=== PATIENT | female | born 1985 | race Caucasian/White ===

== ENCOUNTER 2019-12-22 08:10 | Outpatient (REF) | payer OTHER, SELFPAY ==
[2019-12-22 11:01] LABS: Creatinine Urine 113.02 mg/dL; Microalbumin Urine < 5.0 mg/L
[2019-12-22 11:07] LABS: Alanine Aminotransferase 15 U/L (0-31); Albumin Level 4.4 g/dL (3.5-5.0); Alkaline Phosphatase 76 U/L (39-117); Anion Gap 12 (12-20); Aspartate Amino Transferase 23 U/L (5-31); Bilirubin Total 0.8 mg/dL (0.0-1.0); Blood Urea Nitrogen 16 mg/dL (9-16); Calcium 9.1 mg/dL (8.4-10.2); Carbon Dioxide 27 mmol/L (22-29); Chloride 101 mmol/L (96-108); Cholesterol 165 mg/dL; Estimated Glomerular Filt Rate > 60; Glucose Fasting 234 mg/dL (60-99); HDL Cholesterol 72 mg/dL; Potassium 5.1 mmol/l (3.3-5.1); Sodium 135 mmol/L (135-145); Total Protein 6.8 g/dL (6.5-8.0)
[2019-12-22 11:14] LABS: Estimated Average Glucose 120 mg/dL; Hemoglobin A1c % 5.8 %
[2019-12-22 11:15] LABS: LDL Cholesterol Calculated 87 mg/dl; Triglycerides 33 mg/dL
[2019-12-22 11:27] LABS: Vitamin D 25-OH Total 74.3 ng/mL (>30)
== END 2019-12-22 08:11 | disposition home or self-care (01) ==
LOC: HO.WFDLDS 08:10
PROVIDERS: PCP Nurse Practitioner Family; Visit Provider Nurse Practitioner Family
DX: E55.9 Vitamin D deficiency, unspecified (principal); E03.9 Hypothyroidism, unspecified; E10.9 Type 1 diabetes mellitus without complications
CPT/HCPCS: 80053; 80061; 82043; 82306; 83036; 84443

== ENCOUNTER 2020-06-14 08:24 | Outpatient (REF) | payer OTHER, SELFPAY ==
[2020-06-14 11:05] LABS: Alanine Aminotransferase 17 U/L (0-31); Albumin Level 4.2 g/dL (3.5-5.0); Alkaline Phosphatase 62 U/L (39-117); Anion Gap 14 (12-20); Aspartate Amino Transferase 23 U/L (5-31); Bilirubin Total 0.7 mg/dL (0.0-1.0); Blood Urea Nitrogen 13 mg/dL (9-16); Calcium 8.7 mg/dL (8.4-10.2); Carbon Dioxide 25 mmol/L (22-29); Chloride 103 mmol/L (96-108); Cholesterol 143 mg/dL; Estimated Glomerular Filt Rate > 60; Glucose Fasting 152 mg/dL (60-99); HDL Cholesterol 73 mg/dL; LDL Cholesterol Calculated 62 mg/dl; Sodium 137 mmol/L (135-145); Total Protein 6.5 g/dL (6.5-8.0); Triglycerides 44 mg/dL
[2020-06-14 11:16] LABS: Estimated Average Glucose 128 mg/dL; Hemoglobin A1c % 6.1 %
[2020-06-14 11:25] LABS: Creatinine Urine 41.88 mg/dL; Microalbumin Urine < 5.0 mg/L
[2020-06-14 11:30] LABS: Free T4 (Free Thyroxine) 0.96 ng/dL (0.71-1.85); TSH reflex Free T4 1.86 uIU/mL (0.32-4.0); Vitamin D 25-OH Total 56.2 ng/mL (>30)
== END 2020-06-14 08:25 | disposition home or self-care (01) ==
LOC: HO.WFDLDS 08:24
PROVIDERS: Visit Provider Nurse Practitioner Family
DX: E03.9 Hypothyroidism, unspecified (principal); E10.9 Type 1 diabetes mellitus without complications; E55.9 Vitamin D deficiency, unspecified
CPT/HCPCS: 36415; 80053; 80061; 82043; 82306; 83036; 84439; 84443

== ENCOUNTER 2020-07-02 14:05 | Emergency (ER) | payer OTHER, SELFPAY ==
--- NOTE | ~2020-07-02 | XR_ITS ---
EXAMINATION: XR FOOT, RIGHT CLINICAL INFORMATION: Injury to right great toe. COMPARISON: None TECHNIQUE: AP, lateral, and oblique views of the right foot. FINDINGS: Soft tissue injury over the distal phalanx of the great toe is evident. No fracture or other bony abnormality is seen. No radiopaque foreign body is visualized. XR/XR foot RT min 3V IMPRESSION: Soft tissue injury. No fracture.
[2020-07-02 14:12] VITALS: BP 142/79; PULSE 77; RESP 16; TEMP 36.6; O2SAT 99; BMI 25.8
[2020-07-02] MEDS: Diphth,Pertus(ACell),Tet Adult 0.5 ML SYRINGE IM (14:47)
[2020-07-02] MEDS: Ibuprofen 800 MG TABLET PO (14:47)
--- NOTE | 2020-07-02 15:25 | ED_ITS ---
HPI - Extremity Injury (Lower) General Chief Complaint: Extremity Injury, Lower Stated Complaint: R FOOT INJ DROP 25LB Time Seen by Provider: 07/02/20 14:37 Source: patient Mode of arrival: ambulatory Limitations: no limitations History of Present Illness HPI Narrative: Patient presents to the ED for right big toe pain. Patient states she was taking out garbage and heavy box with metal fell onto her foot. Patient came to the ED to be evaluated. Patient states she had tetanus shot more than 5 years ago. Related Data Previous Rx's Medication Instructions Recorded dextroamphetamine-amphetamine 5 mg 5 mg PO BID 30 Days #60 tab 05/31/20 tablet bupropion HCl 150 mg 24 hr tablet, 150 mg PO QAM #90 tab 06/06/20 extended release cephalexin 500 mg PO QID #28 cap 07/02/20 naproxen 500 mg PO BID PRN #20 tab 07/02/20 Allergies Allergy/AdvReac Type Severity Reaction Status Date / Time acetaminophen [Vicodin] Allergy Unknown hives Verified 02/12/19 00:00 hydrocodone [HYDROCODONE] Allergy Unknown HIVES Unverified 12/02/19 15:32 latex [LATEX] Allergy Unknown HIVES Unverified 12/02/19 15:32 lisinopril [LISINOPRIL] Allergy Unknown ANGIOEDEMA Unverified 12/02/19 15:32 brandon [BRANDON] Allergy Unknown UNKNOWN Unverified 12/02/19 15:32 shrimp [SHRIMP] Allergy Unknown HIVES Unverified 12/02/19 15:32 Hydrocodone-Acetaminophen Allergy Unknown Uncoded 05/30/16 00:00 latex Allergy Unknown hives Uncoded 02/12/19 00:00 OYSTERS Allergy Unknown HIVES Uncoded 12/02/19 15:32 Review of Systems Review of Systems: Yes all other systems are reviewed and are negative Constitutional: Constitutional: Reports as per HPI and Reports no additional constitutional complaints Eyes: Eyes: Reports as per HPI and Reports no additional eye complaints ENT: Reports system reviewed and no additional complaints, except as documented and Reports as per HPI Cardiovascular: Cardiovascular: Reports as per HPI and Reports no additional cardiovascular complaints Respiratory: Respiratory: Reports as per HPI and Reports no additional respiratory complaints Gastrointestinal: Gastrointestinal: Reports as per HPI and Reports no additional gastrointestinal complaints Genitourinary: Genitourinary: Reports no additional female genitourinary complaints and Reports as per HPI Musculoskeletal: Musculoskeletal: Reports no additional musculoskeletal c omplaints, Reports as per HPI and Reports arthralgias Comments: Right big toe pain Neurologic: Reports system reviewed and no additional complaints, except as documented Psychiatric: Psychiatric: Reports no additional psychiatric complaints and Reports as per HPI [facility] Past Medical History Medical History (Updated 07/02/20 @ 15:54 by ISI Earl) Diabetes type 1, controlled Hypothyroid Vitamin D deficiency Social History Social History Advance Directives: Yes Advance Directives on File: Yes Advance Directives Date on File: 12/22/19 Physical Exam Vital Signs: Vital Signs: Last Vital Signs Temp 97.8 F 07/02/20 14:12 Pulse 77 07/02/20 14:12 Resp 18 07/02/20 16:03 BP 142/79 H 07/02/20 14:12 Pulse Ox 99 07/02/20 14:12 Body Mass Index 25.8 Const: General: cooperative, healthy appearing, comfortable, no acute distress, well developed, alert and awake Orientation/consciousness: patient oriented x3 HENMT: Head: Yes normal to inspection, Yes No palpable skull fracture present, Yes normocephalic, Yes atraumatic, No abrasion, No Norris's sign, No contusion, No cranial bruits, No hematoma, No laceration, No occipital foramen tenderness, No palpable skull fracture, No raccoon eyes, No scalp lesion, No scalp tenderness, No Temporal artery tenderness present and No periorbital ecchymosis Eyes: General: appearance normal, both eyes and all related structures Neck: Neck: Yes normal visual inspection, Yes full ROM, Yes no lymphadenopathy, Yes no meningeal signs, Yes trachea midline, Yes supple and No tender Chest: Chest palpation & inspection: normal inspection of the chest and normal palpation of entire chest wall Resp: Effort & Inspection: normal respiratory effort and able to speak in complete sentences Auscultation: clear to auscultation bilaterally Cardio: Jugular venous distension: no JVD Heart sounds: S1 normal heart sound present and S2 normal heart sound present GI: Inspection: Yes normal to inspection and No abdominal wall ecchymosis Palpation (GI): Soft to palpation, not firm, nontender, no guarding and not rigid : General: No CVA tenderness and Yes no CVA tenderness Back/Spine/Pelvis: Back: no CVA tenderness, No CVA tenderness and No back tenderness Skin: General skin exam: no rashes or lesions noted and elasticity normal Neuro: General: patient oriented x3, gait normal, no meningeal signs and CN's II-XI intact bilaterally Cranial nerves: Yes CN's II-XII intact bilaterally Extrem: Other: Right lower extremity: Motor/neuro/vascular exam intact Ankle/foot/toe images: 1. abrasion/skin tear like. no laceration repair indicated. Patient nails are colored with panamanian so unable to diagnose for subungal hematoma, but no blood oozing from nail to indicate nailbed injury. Psych: Appearance: grossly normal, well kempt and not disheveled Course Course Course Narrative: Patient will be sent for x-ray to rule out fracture. No laceration repair indicated. Patient given tetanus. Reevaluation(s) Reevaluation #1: Patient does not need laceration repair. wound cleaned and soaked with sterile saline and betadine. patient informed she is type 1 diabetic. due to this patient will be discharged with cephaelxin. MDM - Extremity Injury (Lower) MDM Narrative Medical decision making narrative: Skin tear Discharge Plan Discharge Clinical Impression: Contusion, Skin tear Patient Disposition: Home, Self-Care Instructions: Contusion in Adults (ED), Skin Tear (ED) Additional Instructions: Return to the ED immediately for swelling of foot, redness, pus discharge, foul odor, fever, chills, or any other concerning symptoms. Prescriptions: New cephalexin 500 mg capsule 500 mg PO QID Qty: 28 RF: 0 naproxen 500 mg tablet 500 mg PO BID PRN (Reason: pain) Qty: 20 RF: 0 No Action dextroamphetamine-amphetamine [Adderall] 5 mg tablet 5 mg PO BID 30 Days Qty: 60 RF: 0 bupropion HCl 150 mg tablet extended release 24 hr 150 mg PO QAM Qty: 90 RF: 1 Referrals: Rich Rosa, COLLECTION CLERK-BC [Primary Care Provider] - 2 days (Contusion. Skin tear.) Stand Alone Forms: Work/School Release Interventions: ED Discharge Assessment Last Done: 07/02/20 16:01 Discharge Date/Time: 07/02/20 16:03 Print Language: Scottish
[2020-07-02 16:03] VITALS: RESP 18
== END 2020-07-02 16:03 | disposition home or self-care (01) ==
PROVIDERS: Emergency Provider Emergency Medicine; PCP Nurse Practitioner Family
DX: S90.111A Contusion of right great toe without damage to nail, initial encounter (principal); S90.411A Abrasion, right great toe, initial encounter; W20.8XXA Other cause of strike by thrown, projected or falling object, initial encounter; E10.44 Type 1 diabetes mellitus with diabetic amyotrophy; Y93.89 Activity, other specified; Y92.015 Private garage of single-family (private) house as the place of occurrence of the external cause; Y99.9 Unspecified external cause status
CPT/HCPCS: 73630; 90471; 90715; 99283; 99284

== ENCOUNTER 2020-07-07 10:02 | Outpatient (RCR) | payer OTHER, SELFPAY | END 2020-07-20 11:34 | disposition home or self-care (01) | LOC: HO.WCC 10:02 | PROVIDERS: Visit Provider Physician Assistant | DX: S91.111D Laceration without foreign body of right great toe without damage to nail, subsequent encounter (principal); E10.9 Type 1 diabetes mellitus without complications; Z79.4 Long term (current) use of insulin | CPT/HCPCS: 99212; 99213 ==

== ENCOUNTER → 2021-11-15 10:51 | Outpatient (BNVA) | payer SELFPAY | PROVIDERS: PCP Nurse Practitioner Family; Visit Provider Physician Assistant Medical | DX: Z02.1 Encounter for pre-employment examination (principal) ==

== ENCOUNTER 2023-05-02 07:46 | Outpatient (REF) | payer OTHER, SELFPAY ==
[2023-05-02 11:36] LABS: Estimated Average Glucose 117 mg/dL; Hemoglobin A1c % 5.7 % (<6.0)
[2023-05-02 12:15] LABS: T4 Thyroxine 6.7 ug/dL (4.5-12.0); TSH reflex Free T4 2.18 uIU/mL (0.32-4.0)
[2023-05-02 12:17] LABS: Anion Gap 13 (12-20)
[2023-05-02 12:22] LABS: Alanine Aminotransferase 12 U/L (0-31); Albumin Level 4.4 g/dL (3.5-5.0); Alkaline Phosphatase 58 U/L (39-117); Aspartate Amino Transferase 23 U/L (5-31); Bilirubin Total 0.5 mg/dL (0.0-1.0); Blood Urea Nitrogen 16 mg/dL (9-16); Calcium 9.8 mg/dL (8.4-10.2); Carbon Dioxide 29 mmol/L (22-29); Chloride 104 mmol/L (96-108); Cholesterol 154 mg/dL (<200); Estimated Glomerular Filt Rate > 60; Glucose Fasting 105 mg/dL (60-99); HDL Cholesterol 71 mg/dL (>40); LDL Cholesterol Calculated 75 mg/dL (<100); Potassium 4.5 mmol/L (3.3-5.1); Sodium 141 mmol/L (135-145); Triglycerides 42 mg/dL (<150)
[2023-05-02 12:26] LABS: Creatinine Urine 101.12 mg/dL; Microalbum/Creatinine Ratio Ur 4.9 ug/mg cr (<30)
== END 2023-05-02 07:47 | disposition home or self-care (01) ==
LOC: HO.WFDLDS 07:46
PROVIDERS: Nurse Practitioner Family; Visit Provider Internal Medicine Endocrinology, Diabetes & Metabolism
DX: E03.9 Hypothyroidism, unspecified (principal); E10.9 Type 1 diabetes mellitus without complications
CPT/HCPCS: 36415; 80053; 80061; 82043; 82570; 83036; 84436; 84443

== ENCOUNTER 2023-11-21 08:28 | Outpatient (REF) | payer OTHER, SELFPAY ==
[2023-11-21 12:05] LABS: Alanine Aminotransferase 14 U/L (0-31); Albumin Level 4.4 g/dL (3.5-5.0); Alkaline Phosphatase 54 U/L (39-117); Anion Gap 11 (12-20); Aspartate Amino Transferase 20 U/L (5-31); Bilirubin Total 0.6 mg/dL (0.0-1.0); Blood Urea Nitrogen 16 mg/dL (9-16); Calcium 9.8 mg/dL (8.4-10.2); Carbon Dioxide 29 mmol/L (22-29); Chloride 102 mmol/L (96-108); Cholesterol 163 mg/dL (<200); Estimated Glomerular Filt Rate 59; Glucose Random 160 mg/dL (60-115); HDL Cholesterol 72 mg/dL (>40); LDL Cholesterol Calculated 81 mg/dL (<100); Potassium 4.3 mmol/L (3.3-5.1); Sodium 138 mmol/L (135-145); Total Protein 6.9 g/dL (6.5-8.0); Triglycerides 50 mg/dL (<150)
[2023-11-21 12:17] LABS: Creatinine Urine 20.55 mg/dL; Microalbumin Urine < 5.0 mg/L
[2023-11-21 12:23] LABS: Thyroid Stimulating Hormone 2.24 uIU/mL (0.32-4.0)
[2023-11-21 12:37] LABS: Estimated Average Glucose 134 mg/dL; Hemoglobin A1c % 6.3 % (<6.0)
== END 2023-11-21 08:29 | disposition home or self-care (01) ==
LOC: HO.WFDLDS 08:28
PROVIDERS: Visit Provider Internal Medicine Endocrinology, Diabetes & Metabolism
DX: E03.9 Hypothyroidism, unspecified (principal); E10.9 Type 1 diabetes mellitus without complications
CPT/HCPCS: 36415; 80053; 80061; 82043; 82570; 83036; 84439; 84443

== ENCOUNTER 2024-02-05 08:59 | Outpatient (AMB) | payer OTHER, SELFPAY ==
--- NOTE | 2024-02-05 07:13 | A.OFFVIS_ITS ---
Intake Visit Reasons: per marcela Allergies acetaminophen [Vicodin] Allergy (Unknown, Verified 07/23/21 12:01) hives hydrocodone [HYDROCODONE] Allergy (Unknown, Unverified 07/23/21 12:) HIVES latex [LATEX] Allergy (Unknown, Unverified 07/23/21 12:) HIVES lisinopril [LISINOPRIL] Allergy (Unknown, Unverified 07/23/21 12:) ANGIOEDEMA brandon [BRANDON] Allergy (Unknown, Unverified 07/23/21 12:) UNKNOWN shrimp [SHRIMP] Allergy (Unknown, Unverified 07/23/21 12:) HIVES Hydrocodone-Acetaminophen Allergy (Mild, Uncoded 07/23/21 12:) Unknown latex Allergy (Unknown, Uncoded 07/23/21:) hives OYSTERS Allergy (Unknown, Uncoded 07/23/21 12:) HIVES HPI HPI per marcela: Details: History of Present Illness The patient is a 38-year-old female presenting with anxiety and depression. She reports an escalation of anxiety symptoms over the past few weeks, which necessitated increasing her Wellbutrin (bupropion) intake back to 450 mg daily from occasionally reducing it to 300 mg when she feels better. The increased dose has been effective in managing her anxiety. During a period of increased anxiety, the patient experienced sleep disturbances, which she managed with Ativan (lorazepam). Currently, with Wellbutrin at 450 mg, her anxiety is well- controlled, and her sleep quality has improved. The patient continues to participate in weekly counseling sessions, which she finds beneficial. She is committed to her mental health management and reports no occurrences of chest pain or shortness of breath. The patient also engaged in a discussion regarding her receipt of a flu shot on January 02, 2024, and indicates that daily exercise contributes positively to her anxiety management. Review of Systems - Psychiatric: Reports controlled anxiety with Wellbutrin 450 mg dose, sleeping well, engaging in weekly counseling. - Cardiovascular: Denies chest pain. - Respiratory: Denies shortness of breath. Physical Exam General: No apparent distress, well nourished Head: Normocephalic Eyes: non-icteric, pupils appear grossly symmetric Mouth: moist mucous membranes, airway patent Neck: Trachea midline Lungs: no respiratory distress, speaks in full sentences Neurologic: alert and cooperative, no dysarthria, face appears symmetric Psychiatric: affect normal, thought pattern linear Skin: no facial diaphoresis, no gross jaundice, no visible rash on exposed skin Note: This physical exam was conducted in conjunction with the patient via our Telehealth platform. The patient reports feeling great with no chest pain or shortness of breath. They are exercising daily, which helps with anxiety, and received a flu shot on January 02, 2024. Plan - Continue current management with Wellbutrin bupropion) at 450 mg daily as it is effective in controlling the patient's anxiety and depression symptoms. - No changes to current medication regimen are indicated as the patient denies experiencing adverse symptoms such as chest pain or shortness of breath.. Patient was informed and verbally consented to the use of an ambient scribe for clinic note documentation during this visit. Discussion Notes We discussed the current management plan for the patient's anxiety and depression. The patient confirmed the efficacy of Wellbutrin 450 mg, and no adverse side effects were reported. I explained the importance of maintaining the current dosage, given its effectiveness in controlling symptoms. We also discussed the benefits of ongoing counseling and exercise as integral parts of her management strategy. The patient was informed about the importance of monitoring any changes in symptoms, and she agreed to notify me if any arise. The patient consented to continue the current treatment plan, and future appointments will be scheduled as needed. Patient Instructions - Continue taking Wellbutrin (bupropion) at the current dose of 450 mg daily. - Engage in regular daily exercise as it assists in managing anxiety levels. - Observe for any new symptoms, and contact me if any issues arise, such as changes in mood, chest pain, or shortness of breath. [facility] Medical History Persistent thyroglossal duct cyst Hypothyroid Diabetes type 1, controlled Vitamin D deficiency Social History Advance Directives Date on File: 12/22/19 Assessment & Plan Assessment & Plan (1) Anxiety with depression: Code(s): F41.8 - Other specified anxiety disorders Category: Medical Plan . Coding Level of Care Code Tele Est Pt Level 3 (25756) Diagnoses Anxiety with depression F41.8
== END 2024-02-05 08:59 | disposition home or self-care (01) ==
LOC: HO.HMCC 08:59
PROVIDERS: PCP Nurse Practitioner Family; Visit Provider Nurse Practitioner Family
DX: F41.8 Other specified anxiety disorders (principal)

== ENCOUNTER → 2024-02-05 08:59 | Outpatient (BNVA) | payer OTHER, SELFPAY | PROVIDERS: PCP Nurse Practitioner Family; Visit Provider Nurse Practitioner Family | DX: F41.8 Other specified anxiety disorders (principal) ==

== ENCOUNTER 2024-04-01 14:35 | Outpatient (REF) | payer OTHER, SELFPAY | END 2024-04-01 14:36 | disposition home or self-care (01) | LOC: HO.SH 14:35 | PROVIDERS: Visit Provider Nurse Practitioner Family | DX: Z01.118 Encounter for examination of ears and hearing with other abnormal findings (principal); H90.3 Sensorineural hearing loss, bilateral | CPT/HCPCS: 92557; 92567 ==

== ENCOUNTER 2024-06-30 07:14 | Outpatient (REF) | payer OTHER, SELFPAY ==
--- OUTSIDE RECORDS SUMMARY | 2024-06-30 07:17 | XMS_ITS | Encounter Summary ---
Author Organization [facility] Address [address] [place] [address] Phone Care Team Providers Care Personal Coach Name Role Phone Maria G Garcia MD Primary Care Provider Encounter Details Date Type Department Care Team (Late st Contact Info) Description 10/31/2016 Conversion Encounter [facility] [place] [address] [place] [address] Social History Tobacco Use Types Packs/Day Years Used Date Smoking Tobacco: Never Assessed Comments Unknown Sex and Gender Information Value Date Recorded Sex Assigned at Not on file Legal Sex Female 4:16 PM EDT Gender Identity Not on file Sexual Orientation Not on file documented as of this encounter Plan of Treatment Not on file documented as of this encounter Visit Diagnoses Not on filedocumented in this encounter Care Teams Personal Coach Relationship Specialty Start Date End Date Maria G Garcia MD [address] [place] [address] PCP - General 10/25/16 06/27/22 documented as of this encounter
--- OUTSIDE RECORDS SUMMARY | 2024-06-30 07:17 | XMS_ITS | Clinical Summary ---
Author Organization [facility] Address [address] [place] [address] Phone Care Team Providers Care Lacquer Pin Press Operator Name Role Phone Unavailable Primary Care Provider Unavailabl e Immunizations Immunization Administration Dates Next Due DTP 12/01/1989, 7,11/15/1985,1985,02/24/1985 Hep B, ped/adol 07/18/1997,11/24/1996,09/09/1996 Hib (HbOC) 09/11/1987 Influenza, injectable, trivalent 02/01/2004 MMR 07/18/1997,09/14/1986 OPV 12/01/1989, 7,07/02/1985,1984 Td (adult) (Teniva), 5 Lf t etanus toxoid, PF, adsorbed 01/16/1999 Social History Tobacco Use Types Packs/Day Years Used Date Smoking Tobacco: Never Assessed Comments Unknown Sex and Gender Information Value Date Recorded Sex Assigned at Not on file Legal Sex Female 4:16 PM EDT Gender Identity Not on file Sexual Orientation Not on file Plan of Treatment Health Maintenance Due Date Last Done Comments Varicella Vaccines (1 of 2 - 13+ 2-dose series) 1997 DTaP,Tdap,and Td Vaccines (6 - Tdap) 01/17/1999 01/16/1999, 12/01/1989, 09/14/1986, Additional history exists Influenza Vaccines (#1) 2023 02/01/2004 COVID-19 Vaccine ( season) 2023 HIB Vaccines Completed 09/11/1987 IPV Vaccines Completed 12/01/1989, 07/0 03/1986, 07/02/1985, Additional history exists Hepatitis B Vaccines Completed 07/18/1997, 11/24/1996, 09/09/1996 MMR Vaccines Completed 07/18/1997, 09/14/1986 HPV Vaccines Aged Out No longer eligi ble based on patient's age to complete this topic Hepatitis A Vaccines Aged Out No long er eligible based on patient's age to complete this topic Men B Vaccine Aged Out No longer elig ible based on patient's age to complete this topic Meningococcal Vaccine Aged Out No wm ibrahima eligible based on patient's age to complete this topic Pneumococcal Vaccine Aged Out No long er eligible based on patient's age to complete this topic
[2024-06-30 11:23] LABS: MANUAL DIFF FLAG NO
[2024-06-30 11:30] LABS: Basophils Absolute Auto 0.1 X10*3/uL (0.0-0.2); Basophils Percent Auto 0.9 % (0-2); Eosinophils Absolute Auto 0.3 X10*3/uL (0.0-0.4); Eosinophils Percent Auto 4.7 % (0-4); Hemoglobin 14.8 g/dl (12.0-16.0); Imm Gran Abs Auto 0.02 X10*3/uL (0.00-0.03); Imm Gran Pct Auto 0.4 % (0.0-0.4); Lymphocytes Absolute Auto 1.9 X10*3/uL (1.2-4.9); Mean Corpuscular HGB Conc 33.6 g/dl (31.0-35.0); Mean Corpuscular Hemoglobin 29.5 pg (27.0-33.0); Mean Corpuscular Volume 87.8 fL (80.0-98.0); Mean Platelet Volume 10.3 fL (9.4-12.3); Monocytes Absolute Auto 0.5 X10*3/uL (0.1-1.2); Monocytes Percent Auto 9.4 % (2-11); Neutrophils Absolute Auto 2.6 x10*3/uL (2.0-8.3); Neutrophils Percent Auto 49.6 % (45-73); Platelet Count 226 X10*3/uL (160-400); Red Blood Count 5.01 X10*6/uL (4.20-5.50); Red Cell Distribution Width 12.7 % (11.0-16.0); White Blood Count 5.3 X10*3/uL (4.8-10.8)
[2024-06-30 11:38] LABS: Estimated Average Glucose 131 mg/dL; Hemoglobin A1C 165.5622 umol/L; Hemoglobin A1c % 6.2 % (<6.0); Total Hemoglobin (HGBA1C) 3753.2102 umol/L
[2024-06-30 12:02] LABS: Alanine Aminotransferase 22 U/L (0-31); Albumin Level 4.3 g/dL (3.5-5.0); Alkaline Phosphatase 53 U/L (39-117); Anion Gap 11 (12-20); Aspartate Amino Transferase 26 U/L (5-31); Bilirubin Total 0.5 mg/dL (0.0-1.0); Blood Urea Nitrogen 19 mg/dL (9-16); Calcium 9.8 mg/dL (8.4-10.2); Carbon Dioxide 28 mmol/L (22-29); Chloride 105 mmol/L (96-108); Cholesterol 144 mg/dL (<200); Estimated Glomerular Filt Rate > 60; Free T4 (Free Thyroxine) 1.12 ng/dL (0.71-1.85); Glucose Fasting 145 mg/dL (60-99); HDL Cholesterol 67 mg/dL (>40); LDL Cholesterol Calculated 66 mg/dL (<100); Potassium 4.2 mmol/L (3.3-5.1); Sodium 140 mmol/L (135-145); TSH reflex Free T4 3.15 uIU/mL (0.32-4.0); Total Protein 6.8 g/dL (6.5-8.0); Triglycerides 55 mg/dL (<150); Vitamin D 25-OH Total 125.2 ng/mL (>30)
[2024-06-30 12:11] LABS: Folate 13.8 ng/mL (> or = 4.0); Vitamin B12 1148 pg/mL (200-900)
[2024-06-30 12:33] LABS: Microalbumin Urine < 5.0 mg/L
== END 2024-06-30 07:15 | disposition home or self-care (01) ==
LOC: HO.WFDLDS 07:14
PROVIDERS: Visit Provider Nurse Practitioner Family
DX: E10.9 Type 1 diabetes mellitus without complications (principal); E55.9 Vitamin D deficiency, unspecified
CPT/HCPCS: 36415; 80053; 80061; 82043; 82306; 82570; 82607; 82746; 83036; 84439; 84443; 85025

== ENCOUNTER 2024-08-25 08:08 | Outpatient (AMB) | payer OTHER, SELFPAY ==
--- OUTSIDE RECORDS SUMMARY | 2024-08-25 08:13 | XMS_ITS | Data Portability ---
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 [email or web address] Not available 06/24/2022 17:37:42 11/07/2022 11/07/2022 T1DM on pump- Overall A1c has been indicative of outstanding control but has had frequent hypoglycemia. Has had very severe episodes requiring response from others. Lots of exercise impacts BG - helps but also has had problems with lows in past. 2017- Severe low on cruise and had seizure- required glucagon but developed aspiration pneumonia ( tried giving her liquid first). 07/2017: Upgrade to 670 but hasn't used sensor (doesn't like alarms and feels not accurate). Very frustrated but also scared about hypo-induced sz. 04/05: Less lows with extreme exercise- Cross-fit and HIIT. Competitive level. More highs during exercise but can go low many hours afterwards. 02/04: Problems with poor insurance- coverage for strips. Having frequent lows. Willing to consider CGM (maybe Eversense)? Also switch to tandem T-slim 04/08: Still using old pump w/o CGM. Keeping sugars high in order to avoid lows. 11/06: Discussed options with newer pumps/software. Her diet is more caloric as part of family tx for Marquise (disordered eating/restricti ve). DELLA'S- Hypothyroid on 75 mcg. 02/04: doing well. 2022: stable on 75 THYROGLOSSAL DUCT CYST (2017)- has not gone for surgery 02/04; Not bothering her. 04/08: Feels it increases intermittently (e.g., post-nasal drip) and also contributes to HERNANDEZ with exercise. 11/06: She reports less bothersome since bx. Still comes/goes but smaller. RUQ pain: 04/08: Ongoing MIGRAINES: 02/04- monthly and stable. 2022: No major change Other symptoms without clear etiology include: exercise-related bradycardia with syncope, RUQ pain (no GB pathology), 01/03: Ask that she bring meter to [facility] next time in area for download. 07/05: Uses multiple meters in different locations that can't be downloaded. 04/08: Ongoing. Enhanced Provider time spent performing enhanced activities which may include, but are not limited to: reviewing tests, obtaining and/or reviewing patient history; ordering medications, test or procedures; EMR documentation; communication with patient, family, caregiver(s), VNA; pre-visit prep time communication with specialists, ER staff. Time spent: 57 (minutes) 04/08: Allowing sugars to run higher than in past in order to avoid lows. No complications but concerned that if a1c increases, she may have problems in future. Ongoing discussion about getting new pump with CGM. Thyroid is stable. Knows about thyroglossal duct cyst. update where insurance will cover. 11/06: highs in afternoon- change CHO ratio. noon from 9.0 to 8.5. [email or web address] Not available 01/13/2023 19:07:20 05/15/2023 05/15/2023 T1DM on pump- Overall A1c has been indicative of outstanding control but has had frequent hypoglycemia. Has had very severe episodes requiring response from others. Lots of exercise impacts BG - helps but also has had problems with lows in past. 2018- Severe low on cruise and had seizure- required glucagon but developed aspiration pneumonia ( tried giving her liquid first). 07/2017: Upgrade to 670 but hasn't used sensor (doesn't like alarms and feels not accurate). Very frustrated but also scared about hypo-induced sz. 04/05: Less lows with extreme exercise- Cross-fit and HIIT. Competitive level. More highs during exercise but can go low many hours afterwards. 02/04: Problems with poor insurance- coverage for strips. Having frequent lows. Willing to consider CGM (maybe Eversense)? Also switch to tandem T-slim 04/08: Still using old pump w/o CGM. Keeping sugars high in order to avoid lows. 11/06: Discussed options with newer pumps/software. Her diet is more caloric as part of family tx for Marquise (disordered eating/restricti ve). DELLA'S- Hypothyroid on 75 mcg. 02/04: doing well. 2022: stable on 75 THYROGLOSSAL DUCT CYST (2017)- has not gone for surgery 02/04; Not bothering her. 04/08: Feels it increases intermittently (e.g., post-nasal drip) and also contributes to HERNANDEZ with exercise. 11/06: She reports less bothersome since bx. Still comes/goes but smaller. RUQ pain: 04/08: Ongoing MIGRAINES: 02/04- monthly and stable. 2022: No major change Other symptoms without clear etiology include: exercise-related bradycardia with syncope, RUQ pain (no GB pathology), 01/03: Ask that she bring meter to [facility] next time in area for download. 07/05: Uses multiple meters in different locations that can't be downloaded. 04/08: Ongoing. Enhanced Provider time spent performing enhanced activities which may include, but are not limited to: reviewing tests, obtaining and/or reviewing patient history; ordering medications, test or procedures; EMR documentation; communication with patient, family, caregiver(s), VNA; pre-visit prep time communication with specialists, ER staff. Time spent: 58 (minutes) 05/10 04/08: Allowing sugars to run higher than in past in order to avoid lows. No complications but concerned that if a1c increases, she may have problems in future. Ongoing discussion about getting new pump with CGM. Thyroid is stable. Knows about thyroglossal duct cyst. update where insurance will cover. 11/06: highs in afternoon- change CHO ratio. noon from 9.0 to 8.5. 05/10: additional time to discuss pump options. No changes. Find out about options for new tandem pump and exchange for next generation (MOBI). plan will likely be Tandem (some type) with dexcom G7. concern about hands- pain is significant but extent of Duputryens is fairly mild. she is nervous about microvascular complications of T1DM. Has responded to use of gloves and less gripping with Xfit. Discussed idea of either PT or hand surgery evaluation. Encourage PT. Has one in her office. [email or web address] Not available 06/20/2023 15:23:53 12/11/2023 12/11/2023 T1DM on pump- Overall A1c has been indicative of outstanding control but has had frequent hypoglycemia. Has had very severe episodes requiring response from others. Lots of exercise impacts BG - helps but also has had problems with lows in past. 2017- Severe low on cruise and had seizure- required glucagon but developed aspiration pneumonia ( tried giving her liquid first). 07/2017: Upgrade to 670 but hasn't used sensor (doesn't like alarms and feels not accurate). Very frustrated but also scared about hypo-induced sz. 04/05: Less lows with extreme exercise- Cross-fit and HIIT. Competitive level. More highs during exercise but can go low many hours afterwards. 02/04: Problems with poor insurance- coverage for strips. Having frequent lows. Willing to consider CGM (maybe Eversense)? Also switch to tandem T-slim 04/08: Still using old pump w/o CGM. Keeping sugars high in order to avoid lows. 11/06: Discussed options with newer pumps/software. Her diet is more caloric as part of family tx for Marquise (disordered eating/restricti ve). DELLA'S- Hypothyroid on 75 mcg. 02/04: doing well. 2022: stable on 75 THYROGLOSSAL DUCT CYST (2017)- has not gone for surgery 02/04; Not bothering her. 04/08: Feels it increases intermittently (e.g., post-nasal drip) and also contributes to HERNANDEZ with exercise. 11/06: She reports less bothersome since bx. Still comes/goes but smaller. RUQ pain: 04/08: Ongoing MIGRAINES: 02/04- monthly and stable. 2022: No major change Other symptoms without clear etiology include: exercise-related bradycardia with syncope, RUQ pain (no GB pathology), 01/03: Ask that she bring meter to [facility] next time in area for download. 07/05: Uses multiple meters in different locations that can't be downloaded. 04/08: Ongoing. CGM REPORT: 12/08: see download for details. TIR= 82% HIGH= 17% (2% over 180) LOWS= 1.3% (mostly post highs) Was having highs after bkfst (juicing) and better now about dosing for that. Some highs around dinner. Exercise times varies. basal/bolus= 54/46. (NB: average exercise is 0) *Discussed adjusting for juicing but she has made progress in that area. Enhanced Provider time spent performing enhanced activities which may include, but are not limited to: reviewing tests, obtaining and/or reviewing patient history; ordering medications, test or procedures; EMR documentation; communication with patient, family, caregiver(s), VNA; pre-visit prep time communication with specialists, ER staff. Time spent: 51 (minutes) 12/08 04/08: Allowing sugars to run higher than in past in order to avoid lows. No complications but concerned that if a1c increases, she may have problems in future. Ongoing discussion about getting new pump with CGM. Thyroid is stable. Knows about thyroglossal duct cyst. update where insurance will cover. 11/06: highs in afternoon- change CHO ratio. noon from 9.0 to 8.5. 05/10: additional time to discuss pump options. No changes. Find out about options for new tandem pump and exchange for next generation (MOBI). plan will likely be Tandem (some type) with dexcom G7. ACR= 4.9 (05/10) 05/10: 154/42/71/75 tsh= 2.18 (05/10): TT4= 6.7 (05/10) concern about hands- pain is significant but extent of Duputryens is fairly mild. she is nervous about microvascular complications of T1DM. Has responded to use of gloves and less gripping with Xfit. Discussed idea of either PT or hand surgery evaluation. Encourage PT. Has one in her office. 12/08: Doing better on Mobi with Dexcom. A1c excellent but the bigger achievement is less lows. Feels much better about these results. Happy with Mobi. Thyroid is OK. Will be getting thryoglossal duct cyst surgery at some point (scheduling issue) [email or web address] Not available 12/15/2023 18:33:21 07/01/2024 07/01/2024 T1DM on pump- Overall A1c has been indicative of outstanding control but has had frequent hypoglycemia. Has had very severe episodes requiring response from others. Lots of exercise impacts BG - helps but also has had problems with lows in past. 2018- Severe low on cruise and had seizure- required glucagon but developed aspiration pneumonia ( tried giving her liquid first). 07/2017: Upgrade to 670 but hasn't used sensor (doesn't like alarms and feels not accurate). Very frustrated but also scared about hypo-induced sz. 04/05: Less lows with extreme exercise- Cross-fit and HIIT. Competitive level. More highs during exercise but can go low many hours afterwards. 02/04: Problems with poor insurance- coverage for strips. Having frequent lows. Willing to consider CGM (maybe Eversense)? Also switch to tandem T-slim 04/08: Still using old pump w/o CGM. Keeping sugars high in order to avoid lows. 11/06: Discussed options with newer pumps/software. Her diet is more caloric as part of family tx for Marquise (disordered eating/restricti ve). 07/09: Using MOBI and very pleased with results. DELLA'S- Hypothyroid on 75 mcg. 02/04: doing well. Since 2022: stable on 75 THYROGLOSSAL DUCT CYST (2017)- has not gone for surgery 02/04; Not bothering her. 04/08: Feels it increases intermittently (e.g., post-nasal drip) and also contributes to HERNANDEZ with exercise. 11/06: She reports less bothersome since bx. Still comes/goes but smaller. 07/09: has become increasingly problematic- has surgery date for 10/08. RUQ pain: Ongoing issue without clear etiology. MIGRAINES: 02/04- monthly and stable. 2022: No major change 2024: stable. Other symptoms without clear etiology include: exercise-related bradycardia with syncope, RUQ pain (no GB pathology), 01/03: Ask that she bring meter to [facility] next time in area for download. 07/05: Uses multiple meters in different locations that can't be downloaded. Since 04/08: Ongoing. CGM REPORT: see CGM download (07/09) for details TIR= 82% HIGHS= 14% LOWS= 4% basal/bolus= 48/52 Scattered highs around expected meals. Lows are sometimes result of steady declines and sometimes from more rapid decreases. Several lows are not linked to rebound highs. - Location of sensor may be contributing to some lows (pseudo-lows). Lows following gradual decline from highs may be more auto-correct than needed. 12/08: see download for details. TIR= 82% HIGH= 17% (2% over 180) LOWS= 1.3% (mostly post highs) Was having highs after bkfst (juicing) and better now about dosing for that. Some highs around dinner. Exercise times varies. basal/bolus= 54/46. (NB: average exercise is 0) *Discussed adjusting for juicing but she has made progress in that area. Enhanced Provider time spent performing enhanced activities which may include, but are not limited to: reviewing tests, obtaining and/or reviewing patient history; ordering medications, test or procedures; EMR documentation; communication with patient, family, caregiver(s), VNA; pre-visit prep time communication with specialists, ER staff. Time spent: 48 (minutes) 07/09 04/08: Allowing sugars to run higher than in past in order to avoid lows. No complications but concerned that if a1c increases, she may have problems in future. Ongoing discussion about getting new pump with CGM. Thyroid is stable. Knows about thyroglossal duct cyst. update where insurance will cover. 11/06: highs in afternoon- change CHO ratio. noon from 9.0 to 8.5. 05/10: additional time to discuss pump options. No changes. Find out about options for new tandem pump and exchange for next generation (MOBI). plan will likely be Tandem (some type) with dexcom G7. ACR= 4.9 (05/10) 05/10: 154/42/71/75 tsh= 2.18 (05/10): TT4= 6.7 (05/10) concern about hands- pain is significant but extent of Duputryens is fairly mild. she is nervous about microvascular complications of T1DM. Has responded to use of gloves and less gripping with Xfit. Discussed idea of either PT or hand surgery evaluation. Encourage PT. Has one in her office. 12/08: Doing better on Mobi with Dexcom. A1c excellent but the bigger achievement is less lows. Feels much better about these results. Happy with Mobi. Thyroid is OK. Will be getting thryoglossal duct cyst surgery at some point (scheduling issue) 07/09: at goal both A1c and TIR. Lows at 4%- some pseudo (pressure at location of sensor) but some may be from autocorrect (although has some o/n in sleep mode when correction is mostly small increases in basal. If clinically problematic, will have her send more complete download to review (currently correction is 1:50 entire 24h). [email or web address] Not available 07/01/2024 18:17:29 Plan of Treatment Reminders Order Date Submit Date Provider Last Modified By Organization Details Last Modified Time Details Appointments Follow Up, 40 2024 11:20A M Aryan Gabriel MD Not available Not available Not available Lab HbA1c (hemog lobin A1c), blood 2024 025 [facility], [address] [place] [address], [id number], 07/02/2024 08:39:46 CMP, serum or plasma 2024 025 [facility], [address] [place] [address], [place], [id number], 07/02/2024 08:39:46 lipid panel, serum 2024 025 [facility], [address] [place] [address], [id number], 07/02/2024 08:39:46 microa lbumin /creat inine, ratio panel, urine 2024 025 [facility], [address] [place] [address], [id number], 07/02/2024 08:39:46 TSH, serum or plasma 2024 025 [facility], [address] [place] [address], [id number], 07/02/2024 08:39:46 T4, free, serum 2024 025 [facility], [address] [place] [address], [id number], 07/02/2024 08:39:46 HbA1c (hemog lobin A1c), blood 2023 024 [facility], [address] [place] [address], [id number], 12/11/2023 17:15:43 CMP, serum or plasma 2023 024 [facility], [address] [place] [address], [id number], 12/11/2023 17:15:43 lipid panel, serum 2023 024 [facility], [address] [place] [address], [id number], 12/11/2023 17:15:43 microa lbumin /creat inine, ratio panel, urine 2023 024 [facility], [address] [place] [address], [id number], 12/11/2023 17:15:43 TSH, serum or plasma 2023 024 [facility], [address] [place] [address], [id number], 12/11/2023 17:15:43 T4, free, serum 2023 024 [email or web address] n [facility], [address] [facility], [place], [id number], 12/11/2023 17:15:43 Referral None record ed. Procedures None record ed. Surgeries None record ed. Imaging None record ed. Medication Orders None record ed. Patient TargetsNo targets recorded. Patient Instructions Encounter Date Encounter Id Patient Instructions Last Modified By Organization Details Last Modified Time 11/07/2022 [id number] - Get labs done as ordered - Continue to monitor your blood sugars as directed - Follow a healthy diet - Get labs done - Continue taking thyroid hormone every day away from other food and especially from other minerals like calcium (dairy), iron, magnesium, etc. - Contact office if any symptoms of low thyroid (excess fatigue, unexplained weight gain, feeling much more cold than usual, constipation, very dry skin) or excess thyroid (heart racing, unexplained weight loss, feeling jittery/nervous/ anxious, change in frequency of moving bowels, tremors, or insomnia) - For 7-10 days prior to visit, need you to either write down all glucose values or wear CGM (we can talk about getting you Dexcom to try) Not available 11/05/2022 10:08:23 6+ months/ 60 minutes Not available 11/05/2022 10:08:23 05/15/2023 [id number] - Get labs done as ordered - Continue to monitor your blood sugars as directed - Follow a healthy diet - Get labs done - Continue taking thyroid hormone every day away from other food and especially from other minerals like calcium (dairy), iron, magnesium, etc. - Contact office if any symptoms of low thyroid (excess fatigue, unexplained weight gain, feeling much more cold than usual, constipation, very dry skin) or excess thyroid (heart racing, unexplained weight loss, feeling jittery/nervous/ anxious, change in frequency of moving bowels, tremors, or insomnia) - For 7-10 days prior to visit, need you to either write down all glucose values or wear CGM (we can talk about getting you Dexcom to try) Not available 05/14/2023 16:06:22 6+ months/ 60 minutes Not available 05/14/2023 16:06:22 12/11/2023 [id number] - Get labs done as ordered - Continue to monitor your blood sugars as directed - Follow a healthy diet - Get labs done as scheduled. - Continue taking thyroid hormone every day away from other food and especially from other minerals like calcium (dairy), iron, magnesium, etc. - Contact office if any symptoms of low thyroid (excess fatigue, unexplained weight gain, feeling much more cold than usual, constipation, very dry skin) or excess thyroid (heart racing, unexplained weight loss, feeling jittery/nervous/ anxious, change in frequency of moving bowels, tremors, or insomnia) [email or web address] Not available 12/15/2023 18:36:39 6+ months/ 60 minutes Not available 12/09/2023 09:55:23 07/01/2024 [id number] - Get labs done as ordered - Continue to monitor your blood sugars as directed - Follow a healthy diet - Get labs done as scheduled. - Continue taking thyroid hormone every day away from other food and especially from other minerals like calcium (dairy), iron, magnesium, etc. - Contact office if any symptoms of low thyroid (excess fatigue, unexplained weight gain, feeling much more cold than usual, constipation, very dry skin) or excess thyroid (heart racing, unexplained weight loss, feeling jittery/nervous/ anxious, change in frequency of moving bowels, tremors, or insomnia) Not available 06/30/2024 11:13:37 6+ months/ 40 minutes (end of day if possible) [email or web address] Not available 07/01/2024 18:18:29 Reason for Referral None Reported. Results Created Date Observation Date Name Description Value Unit Range Abnormal Flag Note LastModifiedBy Organization Detail LastModifiedTime 06/05/19 23 06/04/2022 US, kierra resendiz, for needl e place ment No observ ation record ed. [email or web address] [facility] (Imaging) [address], [place], [id number], 06/13/2022 13:25:39 Result Notes None recorded. Problems Name Problem SNOMED Code Status Onset Date Resolution Date Notes Provider Name and Address Organization Details Recorded Time Fatigue 54271584 Active Monse armendariz [place] - [facility] 3 16:26:37 Renal angle tenderne ss 442067688 Active Monse Mondragon [facility] 3 16:26:37 Right upper quadrant pain 081564495 Active Aryan Gabriel MD [address] [place] [address], , [facility] 4 13:15:41 Hypoglyc emia 009133785 Active Aryan Gabriel MD [address] [place] [address], , [facility] 6 12:52:34 Type 1 diabetes mellitus 91739402 Active 2003 Aryan Gabriel MD [address] [place] [address], , [facility] 3 13:35:04 Right upper quadrant pain 407575260 Completed 200602/03/2013 Not Available [facility] 3 02:03:18 Type 2 diabetes mellitus without complica tion 388796628 Completed 200709/25/2015 Removal Reason: wrong diagnosi s Treasure Liz LPN [facility] 6 15:52:54 Thyroid function tests abnormal 304868105 Active Danyell Suzie [facility] 4 13:35:04 Benign essentia l hyperten jeanine 4866733 Active 2006 Not Available [facility] 3 03:12:26 Alopecia 96451078 Active Not Available [facility] 3 03:12:26 Hashimot o thyroidi tis 13365698 Active 2007 Aryan Gabriel MD [address] [place] [address], , [facility] 3 13:35:04 Hypothyr oidism 42172090 Active Aryan Gabriel MD [address] [place] [address], , [facility] 3 13:35:04 Amenorrh ea 12879470 Active Not Available [facility] 3 03:12:26 Disorder due to type 2 diabetes mellitus 507226411 Completed 200409/25/2015 Removal Reason: wrong diagnosi s ORION Busby, [facility] 6 15:53:05 Viral upper respirat ory tract infectio n 753086806 Completed 200702/03/2013 Not Available [facility] 3 02:03:11 Malaise and fatigue 633788103 Completed 200602/03/2013 Not Available [facility] 3 02:00:18 Problem Notes None recorded. Procedures Surgical History Date Name Laterality Status Provider Name and Address Organization Details Recorded Time 08/26/19 19 catheterization of right heart completed Brie Villa LPN [facility] 10/01/2018 15:01:08 Imaging Results None recorded. Procedure Notes None recorded. Medical Equipment None Reported. Allergies Allergen ID Allergen Name Allergen Category Reaction Reaction Severity Criticality Documentation Date Start Date Code Code System Note Provider Name and Address Organization Details Recorded Time 85237 Zoloft medicatio n diarrhea Not available Not available 07/20/2008 39855 RxNorm Not Available [facility] 1 06:05:20 38122 lisinopri l medicatio n Not available Not available Not available 07/20/2008 23532 RxNorm angio edema Not Available [facility] 1 06:05:20 72085 hydrocodo ne Not available hives Not available Not available 07/20/2008 5489 RxNorm Not Available [facility] 1 06:05:20 Medications Name Sig Start Date Stop Date Status Note LastModified by Organization Details LastModified Time Prescript ion - Renewal active Not Available Not Available Not Available cyclobenz aprine 10 mg tablet TAKE 1 TABLET BY MOUTH EVERY DAY AT BEDTIME NEEDED 06/15 completed Not Available Not Available Not Available fluconazo le 100 mg tablet TAKE ONE TABLET BY MOUTH EVERY DAY active once a week Not Available Not Available Not Available terconazo le 0.4 % vaginal cream 10/01 completed Not Available Not Available Not Available prednison e 10 mg tablet TAKE 5 TABLETS BY MOUTH EVERY DAY 04/01 completed Not Available Not Available Not Available doxycycli ne hyclate 100 mg capsule TAKE ONE CAPSULE BY MOUTH TWICE A DAY 03/21 completed Not Available Not Available Not Available azithromy shaun 250 mg tablet TAKE 2 TABLETS BY MOUTH TODAY, THEN TAKE 1 TABLET DAILY FOR 4 DAYS 04/01 completed Not Available Not Available Not Available Glucagon Emergency Kit 1 mg solution for injection USE KIT DIRECTED . active Not Available Not Available No t Available fluconazo le 150 mg tablet Take 1 tablet every week by oral route. active PT taking this dose. Leave in other for insuranc e purpose Not Available Not Available Not Available ondansetr on HCl 4 mg tablet 1 TABLET BY MOUTH TWICE A DAY NEEDED 06/15 completed PRN Not Available Not Available Not Available terconazo le 0.8 % vaginal cream INSERT 1 APPLICAT OR(S)FUL EVERY DAY BY VAGINAL ROUTE FOR 3 DAYS. 10/01 completed Not Available Not Available Not Available topiramat e 25 mg tablet 04/04 completed 09/05/16 patient has not started this as of yet. Not Available Not Available Not Available Zyrtec 10 mg tablet Take 1 tablet every day by oral route. 04/01 completed OTC Not Available Not Available Not Available tretinoin 0.05 % topical cream APPLY 1 APPLICAT ION TO FACE EVERY DAY IN THE EVENING 10/01 completed Not Available Not Available Not Available sulfameth oxazole 800 mg-trimet hoprim 160 mg tablet 05/02 completed Not Available Not Available Not Available butalbita l-acetami nophen-ca ffeine 50 mg-325 mg-40 mg tablet TAKE 1 TABLET BY MOUTH EVERY 4 HOURS NEEDED active Not Available Not Available No t Available ondansetr on 8 mg disintegr ating tablet DISSOLVE 1 TABLET ON TONGUE ONCE A DAY NEEDED active PRN Not Available Not Available No t Available levothyro xine 75 mcg tablet TAKE ONE TABLET BY MOUTH EVERY DAY active Not Available Not Available No t Available adapalene 0.1 % topical cream APPLY SPARINGL Y IN AM TO FACE 03/21 completed Not Available Not Available Not Available terconazo le 80 mg vaginal supposito ry 09/05 completed Not Available Not Available Not Available lorazepam 0.5 mg tablet 08/01 completed Not Available Not Available Not Available OneTouch Ultra Test strips Use twice daily as directed , Dx Code E11.9 2020 active Not Available Not Available Not Avai lable meclizine 25 mg tablet 05/02 completed Not Available Not Available Not Available doxycycli ne monohydra te 100 mg capsule TAKE ONE CAPSULE BY MOUTH TWICE A DAY active Not Available Not Available No t Available cephalexi n 500 mg capsule TAKE 1 CAPSULE BY MOUTH THREE TIMES A DAY FOR 10 DAYS 01/25 completed Not Available Not Available Not Available methylpre dnisolone 8 mg tablet 05/02 completed Not Available Not Available Not Available oseltamiv ir 75 mg capsule 09/05 completed Not Available Not Available Not Available promethaz ine 25 mg tablet PRN 04/01 completed Not Available Not Available Not Available polymyxin B sulfate 10,000 unit-trim ethoprim 1 mg/mL eye drops INSTILL 1 DROP INTO AFFECTED EYE 4 TIMES A DAY FOR 5 DAYS 10/01 completed Not Available Not Available Not Available betametha sone dipropion ate 0.05 % topical cream APPLY TO AFFECTED AREA EVERY DAY 04/01 completed Not Available Not Available Not Available folic acid 1 mg tablet Take 1 tablet every day by oral route. active Not Available Not Available No t Available monteluka st 10 mg tablet TAKE 1 TAB BY MOUTH AT BEDTIME FOR 30 DAYS. 10/01 completed Not Available Not Available Not Available codeine 10 mg-guaife nesin 100 mg/5 mL oral liquid 04/04 completed Not Available Not Available Not Available Keto-Braden tix strips Take 1 strip as needed by miscell. route. 2013 active Not Available Not Available Not Avai lable lorazepam 1 mg tablet TAKE 1 TABLET BY MOUTH EVERY DAY NEEDED 12/22 completed Not Available Not Available Not Available insulin lispro (U-100) 100 unit/mL subcutane ous solution INJECT 50 TO 80 UNITS UNDER THE SKIN VIA INSULIN PUMP DAILY 2024 active Not Available Not Available Not Avai lable levofloxa shaun 500 mg tablet 05/02 completed Not Available Not Available Not Available ondansetr on 4 mg disintegr ating tablet 05/02 completed Not Available Not Available Not Available dextroamp hetamine- amphetami ne 5 mg tablet TAKE ONE TABLET BY MOUTH TWICE A DAY FOR ADD. TAKE DOSES AT LEAST 4-6 HOURS APART active Not Available Not Available No t Available loratadin e 10 mg tablet Take 1 tablet every day by oral route. active Not Available Not Available No t Available amoxicill in 875 mg-potass ium clavulana te 125 mg tablet TAKE 1 TABLET BY MOUTH EVERY 12 HOURS FOR 10 DAYS 04/09 completed Not Available Not Available Not Available Levora-28 0.15 mg-0.03 mg tablet 05/02 completed Not Available Not Available Not Available insulin lispro (U-100) 100 unit/mL subcutane ous pen inject up to 15 units daily by subcutan eous route as directed if insulin pump malfunct ions active Not Available Not Available No t Available ciclopiro x 0.77 % topical cream APPLY DIRECTED 2 TIMES DAILY 04/09 completed Not Available Not Available Not Available bupropion HCl XL 300 mg 24 hr tablet, extended release TAKE ONE TABLET BY MOUTH EVERY MORNING WITH 150MG TABLET 07/01 completed Not Available Not Available Not Available bupropion HCl XL 150 mg 24 hr tablet, extended release TAKE ONE TABLET BY MOUTH EVERY MORNING WITH 300MG TABLET 07/01 completed Not Available Not Available Not Available Alcohol Wipes Use twice daily as directed for monitori ng glucose, Dx Code E11.9 2020 active Not Available Not Available Not Avai lable Tri-Previ fem (28) 0.18 mg(7)/0.2 15 mg(7)/0.2 5 mg(7)-35 mcg tablet TAKE 1 TABLET BY MOUTH EVERY DAY 12/22 completed Not Available Not Available Not Available Levora 0.15/30 (28) one tab daily 01/30 completed Not Available Not Available Not Available multivita min active Not Available Not Available Not Available Vitamin active Not Available Not Available Not Available BD Ultra-Fin e Short Pen Needle 31 gauge x 07/30 active Not Available Not Available Not Available ProAir HFA 90 mcg/actua tion aerosol inhaler INHALE 2 PUFFS INTO THE LUNGS EVERY 6 HOURS NEEDED FOR COUGH OR WHEEZING FOR UP TO 30 DAYS. 10/01 completed Not Available Not Available Not Available clindamyc in 1.2 % (1 % base)-lisa zoyl peroxide 5 % topical gel 10/01 completed Not Available Not Available Not Available Lantus Solostar U-100 Insulin 100 unit/mL (3 mL) subcutane ous pen Inject 24 units by subcutan eous route daily as directed if insulin pump malfunct ions. active Not Available Not Available No t Available D-Hist D 2 caps at bedtime active Not Available Not Available No t Available Vitamin D3 50 mcg (2,000 unit) tablet Take 1 tablet every day by oral route. 12/10 completed Not Available Not Available Not Available butalbita l-acetami nophen-ca ffeine 50 mg-300 mg-40 mg capsule TAKE ONE CAPSULE BY MOUTH EVERY DAY NEEDED FOR HEADACHE S FOR 30 DAYS active Not Available Not Available No t Available Probiotic 01/25 completed Not Available Not Available Not Available Banophen 50 mg capsule TAKE 1 CAPSULE BY MOUTH 12 HOURS BEFORE EXAM AND AGAIN TWO HOURS BEFORE 05/02 completed Not Available Not Available Not Available Contour Next Test Strips test blood sugar 8 - 12 times dialy 06/15 completed works with new pump. Not Available Not Available Not Available Fluzone Quad (P F) 60 mcg(15 mcgx4)/0. 5 mL intramusc ular syringe TO BE ADMINIST ERED BY PHARMACI ST FOR IMMUNIZA TION 10/01 completed Not Available Not Available Not Available Baqsimi 3 mg/actuat ion nasal spray Take 1 spray as needed by nasal route. 06/15 completed Not Available Not Available Not Available Flublok Quad (PF) 180 mcg (45 mcg x 4)/0.5 mL IM syringe PHARMACY ADMINIST ERED 06/15 completed Not Available Not Available Not Available Vitals Date Recorded Body height Body mass index (BMI) Body weight Heart rate Systolic blood pressure Diastolic blood pressure Provider Name and Address Organization Details Last Updated DateTime 4 164.47 cm 28.9 kg/m2 58703.3 2 g 68 /min 128 mm[Hg] 68 mm[Hg] Margo Stephens RN [facility] 4 11:04:58 Date Recorded Body height Provider Name an d Address Organization Details Last Updated DateTime 06/24/2022 164.47 cm Maeve Stafford LPN [facility] 06/24/2022 16:18:55 Date Recorded Body height Body mass index (BMI) Body weight Heart rate Systolic blood pressure Diastolic blood pressure Provider Name and Address Organization Details Last Updated DateTime 5 164.47 cm 28.3 kg/m2 82190.6 7 g 64 /min 120 mm[Hg] 77 mm[Hg] Maeve Nydia [facility] 5 16:50:03 Date Recorded Body height Body mass index (BMI) Body weight Heart rate Systolic blood pressure Diastolic blood pressure Provider Name and Address Organization Details Last Updated DateTime 3 164.47 cm 29.1 kg/m2 72215.9 2 g 72 /min 127 mm[Hg] 68 mm[Hg] Maeve Nydia [facility] 3 11:05:33 Date Recorded Body height Body mass index (BMI) Body weight Heart rate Systolic blood pressure Diastolic blood pressure Provider Name and Address Organization Details Last Updated DateTime 4 164.47 cm 28 kg/m2 08972.9 3 g 84 /min 121 mm[Hg] 74 mm[Hg] Maeve Nydia [facility] 4 11:13:21 Social History Question Answer Notes LastModified by Organizat ion Details LastModified Time Tobacco Smoking Status Never Smoker Not Available [employer] 01/31/2011 04:53:49 Which Illicit Or Recreational Drugs Have You Used? None Denies, [email or web address] Information not available 05/02/2016 Live Alone Or With Others? With Others Spouse And Daughter And 2nd Child Due July 2011 [email or web address] Information not available 03/28/2011 DM Disease Process Post-shows Competency Information not available 07/30/2017 Nutrition Post-shows Competency Information not available 07/30/2017 Physical Activity Post-shows Competency Information not available 07/30/2017 Medications Post-shows Competency Information not available 07/30/2017 Monitoring Post-shows Competency Information not available 07/30/2017 Acute Complications Post-shows Competency Information not available 07/30/2017 Chronic Complications Post-shows Competency Information not available 07/30/2017 Coping Post-shows Competency Information not available 07/30/2017 Behavior Change Post-shows Competency Information not available 07/30/2017 DSME Plan Goal Monitoring: Consider Trying The Sensor Again Once You Receive The Tape Kit From [employer]. Information not available 07/30/2017 DSME Plan Goal Success 100%-always: Information not available 08/06/2017 DSME Plan Goal Evaluation: 08/06/2017 Information not available 08/06/2017 DSME Plan Initiated: 07/30/2017 DSME Dates Seen: 07/30/17, 08/06/17, Information not available 07/30/2017 DSME Plan Status Completed- Informat ion not available 08/06/2017 DSME Evaluation Note 08/06/2017 Information not available 08/06/2017 Diabetes Ed Classes Discussed Patient Not Appropriate Pump Pt. Information not available 07/30/2017 Marital Status keaton Informati on not available 03/28/2011 What Was The Date Of Your Most Recent Tobacco Screening? 10/01/2018 Information not available 10/07/2018 How Many Children Do You Have? 1 Information not available 01/31/2011 How Many Days In The Past Year Have You Consumed 4 Or More Drinks? 0 Information not available 05/15/2023 Sex: Unknown Functional Status Question Answer Note LastModified by Organizat ion Details LastModified Time Do you use any illicit or recreational drugs? No [email or web address] Information not available 01/25/2021 Do you or have you ever used any other forms of tobacco or nicotine? No Information not available 08/23/2021 What is your level of alcohol consumption? 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 Family History Relationship Description Onset Age of this Age Resolved Age Notes LastModified by Organization Details LastModified Time Sister Type 1 diabetes mellitus [email or web address] Not available 04/26/2015 17:18:50 Daughter Regulo-Danlo s syndrome [email or web address] Not available 06/15 10:46:33 Notes:sister has t1dm (Ladi Peña) sister (Denita) spina bifida with hx shunt mom (Namrata Peña) has thyroid. (mom was told of positional orthostasis tachycardia syndrome) 03/29- no changes. GGM (96) fell 2 weeks ago- fx pelvis in 2 places. Dad- abdominal pain w/u- possible tumor in bowel. 10/28- Saw other sister (Melva) in [place]- healthy and no problems. No kids ([employer] project manager). Brother just graduated from [employer]) as special rd mechanical engineer. 01/29- Marquise- 1st grade (chapter books); Reginald (3). 05/02- Marquise at Ok at school. Reginald failed assessment for pre-school. Town speech/hearing/language and private assessments. 08/2016 - Sister has pernicous anemia 04/05: Marquise 5th [employer]. 2nd grade. 01/03: Kids remote- never want to leave her side. Gram's BP was 200/100. Mom undergoing w/u. 07/05: Peejazmyne has EDS ([facility]). chronic dislocation. some days trouble walking. even falling down stairs. To pain management clinic. Reginald CROWE. Denita (sister)- still working with Neuro. 02/04: Kids doing OK. 09/05: Reginald OK. 04/08: Marquise is 14 (stunning); Reginald (10). Medical History Condition Response Diabetes Type I Y Gynecological HistoryNo gynecological history recorded. Obstetrics History GPAL:G 0 P 0 0 0 0 Immunizations Vaccine Type Date Status Note Provider Gen caputo and Address Organization Details Recorded Time Influenza, split virus, quadrivalent, preservative 9 completed Brie Villa LPN null, [facility] 04/01/2019 15:08:10 COVID-19, mRNA, LNP-S, PF, 100 mcg/0.5mL dose or 50 mcg/0.25mL dose 1 completed Brie Villa LPN null, [facility] 06/15/2020 10:47:46 Influenza, split virus, quadrivalent, preservative 1 completed Margo Stephens RN null, [facility] 12/07/2020 08:36:02 COVID-19, mRNA, LNP-S, PF, 100 mcg/0.5mL dose or 50 mcg/0.25mL dose 2 [facility]/23/[facility] 11:11:07 Past Encounters Encounter ID Performer Location Encounter Start Date Encounter Closed Date Diagnosis/Indication Diagnosis SNOMED-CT Code Diagnosis ICD10 Code Diagnosis Note [id number] [facility] - [address] [address] 02/08/2004 17:05:13 02/08/2004 17:05:33 [id number] Aryan Gabriel MD [facility], [address] [address] 02/08/2004 15:42:14 02/10/2004 07:35:35 [id number] Aryan Gabriel MD [facility], [address] [address] 05/04/2004 16:12:37 05/07/2004 09:56:10 [id number] [facility] - [address] [address] 05/04/2004 00:00:00 04/06/2008 02:02:29 [id number] Aryan Gabriel MD Endocr[facility], [address] [address] 09/14/2004 10:24:44 09/14/2004 17:40:19 [id number] [facility] - [address] [address] 09/14/2004 11:26:41 09/14/2004 11:27:29 [id number] Aryan Gabriel MD [facility], [address] [address] 01/02/2005 13:39:18 01/03/2005 09:27:48 [id number] [facility] - [address] [address] 01/02/2005 00:00:00 04/06/2008 02:02:29 [id number] [facility] - [address] [address] 06/12/2005 09:09:26 06/12/2005 10:02:23 [id number] Aryan Gabriel MD Endocr[facility], [address] [address] 08/29/2005 14:58:48 08/30/2005 08:40:12 [id number] [facility] - [address] [place] [address] 08/29/2005 00:00:00 04/06/2008 02:02:29 [id number] [facility] - [facility] [place] [address] 01/15/2006 09:29:45 01/15/2006 09:29:49 [id number] Aryan Gabriel MD Endocr[facility], [address] [place] [address] 04/02/2006 16:57:03 04/03/2006 10:28:33 [id number] [facility] - [facility] [place] [address] 04/02/2006 00:00:00 04/06/2008 02:02:29 [id number] [facility] - [facility] [address] [place] [address] 04/14/2006 14:27:52 04/14/2006 14:28:07 [id number] [facility] - [facility] [address] [place] [address] 09/22/2006 13:53:51 09/22/2006 13:54:05 [id number] Aryan Gabriel MD Endocr[facility], [address] [place] [address] [id number] [facility] - [address] [place] [address] 09/24/2006 00:00:00 04/06/2008 02:02:29 [id number] [facility] - [address] [place] [address] 04/17/2007 09:52:54 04/17/2007 09:53:00 [id number] Aryan Gabriel MD [facility], [address] [place] [address] 06/25/2007 08:52:28 04/06/2008 02:02:29 [id number] Aryan Gabriel MD [facility], [address] [place] [address] 04/17/2007 09:54:37 07/16/2007 15:29:09 [id number] Aryan Gabriel MD [facility], [address] [place] [address] 07/31/2007 08:51:37 04/06/2008 02:02:29 [id number] [facility] - [address] [place] [address] 07/31/2007 10:29:54 07/31/2007 10:30:03 [id number] Aryan Gabriel MD [facility], [address] [place] [address] 09/09/2007 09:48:24 04/06/2008 02:02:29 [id number] [facility] - [address] [place] [address] 09/28/2007 13:20:34 09/28/2007 13:20:42 [id number] Mali Watson PA-C [facility], [address] [place] [address] 10/08/2007 11:03:46 04/06/2008 02:02:29 [id number] Mali Watson PA-C [facility], [address] [place] [address] 10/26/2007 10:58:15 04/06/2008 02:02:29 [id number] [facility] - [facility] [address] [place] [address] 12/07/2007 12:33:57 12/07/2007 12:34:04 [id number] Aryan Gabriel MD [facility], [address] [place] [address] 12/11/2007 10:20:10 04/06/2008 02:02:29 [id number] [facility] - [address] [place] [address] 10/26/2007 00:00:00 04/06/2008 02:02:29 [id number] Mali Watson PA-C [facility], [address] [place] [address] 12/31/2007 11:50:44 04/06/2008 02:02:29 [id number] Aryan Gabriel MD [facility], [address] [place] [address] 02/04/2008 14:44:36 04/06/2008 02:02:29 [id number] Aryan Gabriel MD [facility], [address] [place] [address] 04/06/2008 09:51:20 04/19/2008 02:02:00 [id number] Aryan Gabriel MD [facility], [address] [place] [address] 07/20/2008 09:57:17 07/22/2008 08:33:28 [id number] Aryan Gabriel MD [facility], [address] [place] [address] 11/11/2008 11:02:04 11/24/2008 10:54:42 [id number] [facility] - [address] [place] [address] 07/20/2008 09:50:24 07/20/2008 09:50:29 [id number] [facility] - [address] [place] [address] 11/11/2008 00:00:00 01/12/2009 02:00:52 [id number] Aryan Gabriel MD [facility], [address] [place] [address] 04/26/2009 09:59:50 04/26/2009 17:20:21 [id number] Aryan Gabriel MD [facility], [address] [place] [address] 10/25/2009 14:10:49 10/30/2009 09:33:46 [id number] Aryan Gabriel MD [facility], [address] [place] [address] 05/24/2010 10:53:32 05/29/2010 10:20:58 [id number] Aryan Gabriel MD [facility], [address] [place] [address] 11/30/2010 10:57:42 11/30/2010 12:33:46 [id number] Aryan Gabriel MD [facility], [address] [place] [address] 01/31/2011 14:03:01 01/31/2011 15:32:20 [id number] Mali Watson PA-C [facility], [address] [place] [address] 03/28/2011 14:09:27 03/28/2011 15:02:08 [id number] Aryan Gabriel MD [facility], [address] [address] 06/12/2011 11:19:36 07/11/2011 08:50:57 [id number] Aryan Gabriel MD [facility], [address] [address] 08/29/2011 10:02:03 08/29/2011 10:59:01 [id number] Aryan Gabriel MD [facility], [address] [address] 12/19/2011 11:42:56 12/19/2011 13:18:17 [id number] Aryan Gabriel MD [facility], [address] [address] 04/15/2012 09:32:27 04/15/2012 10:51:09 [id number] Aryan Gabriel MD [facility], [address] [address] 01/25/2013 10:09:47 01/25/2013 11:32:19 Type 1 diabetes mellitus 14286202 Many lows in AM. Change 4:30 from 1.25 to 1.1 units. Also encourage her to consider temp basal when working nights. Needs to work different shifts to get to 32 hours at pay rate she needs. Hypothyroidism 91975232 TSH good on 75 mcg. (TSH= 0.9). Right uppe r quadrant pain 998667603 Quite significan t today with evidence of guarding- No rebound. In past, has resulted in ER visit. No clear etiology- In past, had negative CT scan and U/S but none recently. Clearly still having RUQ pain today. Has seen Ac in past. since no recent u/s, will repeat and check CXR as well (for right costophren ic angle. Fatigue [id number] 01/27- Cold and tired. TFTs, CMP and CBC OK in 11/27. Not sure how much of this may be due to frequent changes in shifts. Fitting procedure [id number] Monitor sugars and boluses as above. Will make recommenda tions depending on patterns. Renal angl e tenderness 531129506 Check u/a and C&S. She also describes as pleuritic. [id number] Aryan Gabriel MD [facility], [address] [address] 06/25/2013 11:03:49 06/25/2013 12:18:36 Type 1 diabetes mellitus 73903300 Although a1c at target, she has wide swing in BG reflecting sub-optima l control. 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 Many lows in evening and overnight but not just on work nights or school nights (often not having dinner till after 9-10PM all nights). Also has some evidence of stacking as cause of lows. Already has lowered her o/n basal rates. Will change bolus since many of her meals are late at night. Currently 1:11 so go to 1:15 but may be able to go 1: 13 if starts to have more AM high values. Can start different bolus (1:15 at 3PM) to see if that helps. Also wait 2 hours in between boluses to avoid impact of stacking. Might also consider temp basal when working nights. (Needs to work different shifts to get to 32 hours at pay rate she needs) Hypothyroidism 25228879 TSH good on 75 mcg. (TSH at goal). continue and monitor labs Right uppe r quadrant pain 187390690 Has been very significan t in past but comes and goes. No clear etiology- In past, had negative CT scan and U/S. Has not seen GI (Ac) because conflictin g with work/schoo l. Work/Schoo l will continue through summer. Finishes in July 2014. Fitting procedure [id number] Monitor sugars and boluses as above. Will make recommenda tions depending on patterns. [id number] Aryan Gabriel MD Endocr[facility], [address] [address] 10/20/2013 11:13:24 10/20/2013 12:35:24 Type 1 diabetes mellitus 44667446 Although A1c at target, she has several lows and occ highs. 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 Many lows in evening and overnight - mostly on work/schoo l nights (often not having dinner till after 9-10PM all nights). Lows tend to occur when if boluses without checking sugar pre-meal. She is doing much more food prep from scratch and has a little harder time assessing CHO than if she just looked on the box at label. Try 1:12 when at work. For now keep 1:8 on non-work days. Also has continued evidence of stacking as cause of some lows - talked about impact of stacking (again). Encourage her to wait 2 hours in between boluses to avoid impact of stacking. (Needs to work different shifts to get to 32 hours at pay rate she needs) Hypothyroidism 28270629 TSH good on 75 mcg. (TSH at goal). Continue and monitor labs. Patient asking about whether will need to continue on T4. Reviewed hx with her- TSH over 9 after post-partu m thyroiditi s and had significan t sx. Could try holiday off T4 to see if TSH rises. Given current schedule of work/schoo l, suggest we consider that after school is done and she has a more stable job. Right uppe r quadrant pain [id number] Has been very significan t in past but comes and goes. No clear etiology- In past, had negative CT scan and U/S. Has not seen GI (Ac) because conflictin g with work/schoo l. Work/Schoo l will continue through summer. Finishes in July 2014. Insulin pump present [id number] see above complicate s case. [id number] Aryan Gabriel MD Endocrino logy, [address] [address] 03/25/2014 10:55:05 03/25/2014 12:09:37 Type 1 diabetes mellitus [id number] Excellent a1c on insulin pump. Has lows (50-60 when wakes) but feels OK and eats then. Also some towards HS. Has other times when she gives high boluses (40+ units over few hours) for high CHO stress eating. Has some high values mid AM and might consider change in 11AM basal but since her schedule is very variable and she will be starting back to school schedule, will not make any changes at this time. Overall, she is correcting well when she has highs so will continue on current regimen. Hypothyroidism [id number] TSH good on 75 mcg generic. (TSH at goal). Continue and monitor labs. Patient asking about whether will need to continue on T4. Reviewed hx with her- TSH over 9 after post-partu m thyroiditi s and had significan t sx. Could try holiday off T4 to see if TSH rises. Given current schedule of work/schoo l, suggest we consider that after school is done and she has a more stable job. Insulin pump present [id number] see above complicate s case. [id number] Aryan Gabriel MD Endocrino logy, [address] [address] 09/14/2014 16:56:28 09/15/2014 10:30:23 Type 1 diabetes mellitus [id number] Excellent a1c on insulin pump- what might seem like impressive control with a1c of 5.9 is of some concern because of frequent lows. Has lows (50-60 when wakes) but feels OK and eats then. Also some towards HS. Not feeling lows well until close to low 40s and this may be of concern down the road. Although she wakes up during night with lows, she has also been living on short shifts of sleep (often 4 hours at a time) and, with new job, may actually sleep more hours overnight which would increase chance for severe low during that time. Has some times when she seems to be giving high boluses (12+ units over few hours). This is better than in past when she was taking much higher amounts. Can't assess all of her values since she uses multiple meters and doesn't incorporat e all into pump download. She may be over correcting (especiall y at night) when she has highs which may also contribute to AM lows. Two changes today: 1) Adjust sensitivit y from 1:30 to 1:50 (less to correct at night) and 2) decrease 4:30 AM Basal from 0.875 to 0.8 (hope to reduce lows happening when she wakes. Hypothyroidism [id number] TSH good on 75 mcg generic. (TSH at goal). Continue and monitor labs. Changing insurance and so will be changing generic preparatio n at different pharmacy. Reviewed hx- TSH over 9 after post-partu m thyroiditi s and had significan t sx. Now that school is done and she has a more stable job, she might consider trial off T4 if she wants to see whether she needs to continue. Insulin pump present [id number] see above complicate s case. [id number] Aryan Gabriel MD Endocrino logy, [address] [address] 02/01/2015 16:56:26 03/07/2015 06:20:24 Type 1 diabetes mellitus 73385030 E10.9 Excellent a1c on insulin pump- Continue to have some concerns because of frequent lows. Problem seems to be mis-estima ting CHO content of foods. Bringing foods to work more than using pre-packag ed with known CHO content. Has lows (30s to 50s) but feels OK and eats then. Not feeling lows well until close to low 40s and this may be of concern down the road. Very few lows o/n. Also an indicator that problem is more bolus than basal. Since not using wizard, won't make changes to sensitivit y or correction . Suggest she see dietitian to review CHO counting with her diet the way it is. Hypothyroidism 56601784 E03.9 TSH good on 75 mcg generic. (TSH at goal). Continue and monitor labs. Reviewed hx- TSH over 9 after post-partu m thyroiditi s and had significan t sx. Insulin pump present [id number] Z96.41 see above complicate s case. [id number] Aryan Gabriel MD Endocrino logy, [address] [address] 04/26/2015 16:44:59 05/05/2015 09:28:03 Type 1 diabetes mellitus 57537416 E10.9 Excellent a1c on insulin pump- However, continue to have concerns because of frequent lows. Currently, lots of lows in AM. She had increased basal o/n when got new pump around holidays. Will drop back to 0.95 (slightly more than previous visit) and see if AM values are at goal. Bringing foods to work- doing better at estimating CHO. Has spoke to Judith morris and may have visit. Having more sx closer to 60s since went off pump temporaril y after MRI damaged her pump (was off pump for several days until new one arrived). Not using wizard for meals, so changes to bolus ratio don't really matter (she does use for correction and note that her sensitivit y is set at 30). Suggest she see dietitian (Pamella Young) to review CHO counting with her diet the way it is. Hypothyroidism 87660114 E03.9 TSH good on 75 mcg generic. (TSH at goal). Continue and monitor labs. Insulin pump present [id number] Z96.41 see above- complicate s case. Hypoglycemia [id number] E 16.2 Frequent- discussed ramificati ons of repeated hypoglycem ia (becoming unaware of sx and potential health consequenc es over time). [id number] Aryan Gabriel MD Endocrino logy, [address] [address] 01/31/2016 16:57:57 02/01/2016 07:44:36 Type 1 diabetes mellitus 58188984 E10.9 Excellent a1c on insulin pump- However, continue to have concerns because of frequent lows. Currently, lots of lows in AM. She had increased basal o/n when got new pump around holidays. Will drop back to 0.95 (slightly more than previous visit) and see if AM values are at goal. Bringing foods to work- doing better at estimating CHO. Has spoke to Judith morris and may have visit. Having more sx closer to 60s since went off pump temporaril y after MRI damaged her pump (was off pump for several days until new one arrived). Not using wizard for meals, so changes to bolus ratio don't really matter (she does use for correction and note that her sensitivit y is set at 30). Suggest she see dietitian (Pamella Young) to review CHO counting with her diet the way it is. Insulin pump present [id number] Z96.41 see above- complicate s case. Hypothyroidism 86229884 E03.9 TSH good on 75 mcg generic. (TSH at goal). Continue and monitor labs. Syncope [id number] R55 Post half-elizabeth hon but felt poorly by mile 3. Had run 8K week before w/o trouble. Despite sx, she finished half marathon with good time but then noticed to have blue lips and had n/v and abdominal pain. Not a BG problem- was neither very low nor very high. Given HR of 40s (documente d by mom who is RN), concerned that there may be some arrhythmia that was precipitat ed. Didn't go to ER to see if in sinus or not- would like to see if it can be precipitat ed - suggest contact Cardiology to see about ETT (Full Abdoulaye protocol). 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 measuremen ts were 1.3 (T)x1.3 (AP) by 1.5 (sag). Recent u/s ([facility]) shows complex cyst measuring 1.6x1.4x1. 6 superior to the hyoid bone .Spok e with Dr. Vanessa who says that there aren't really any strap muscles cranial/butcher perior to hyoid bone and that thyrogloss al duct cysts aren't usually above the hyoid. Since identity of this mass is unclear (branchial vs. thyrogloss al duct), seems appropriat e to suggest biopsy of cystic mass to identify cellularit y and compositio n. Patient needs to review with insurance about whether [facility] has an Endocrine provider who can perform u/s guided bx. Given long-stand kit [facility] ip with this patient, she would like to see if possible for me to perform this here. Have to also figure out place with sufficient ly expertise to interpret cytology. Type 1 melania betes mellitus 48616953 E10.9 Excellent a1c on insulin pump- Most recent 5.8 (2017) however this also indicates high frequency of hypoglycem ia. Suggest she return in 2 months to have further discussion about pump settings. As before, she has lots of lows in AM. SheIn past, was not using wizard for meals, so changes to bolus ratio don't really matter (she does use for correction and note that her sensitivit y is set at 30).Had suggested she see dietitian (Pamella Young) to review CHO counting with her diet the way it is. [id number] Aryan Gabriel MD Endocrino logy, [address] [address] 09/05/2016 16:06:13 09/05/2016 17:17:00 Hypothyroidism 22605578 E03.9 OK on 75 mcg generic (1.98 in 08/31) Type 1 melania betes mellitus 40181223 E10.9 Excellent a1c on insulin pump- Most recent 5.9 (08/31) however pump download shows fluctuatio n with high frequency of hypoglycem ia and highs. 1) change sensitivit y so that she gets less for correction s (one reason for her lows). She is certainly more sensitive than 30 .2) Suggest she wear sensor for 1-2 weeks to see some of her patterns.3 ) Suggest she check BG during workday to know how much to bolus.4) May need adjustment to basal. Her ratio of basal:bolu s is 45:55 (suggests relying on boluses too much) In past, was not using wizard for meals, so changes to bolus ratio don't really matter (she does use for correction and note that her sensitivit y is set at 30).Had suggested she see dietitian (Pamella Young) to review CHO counting with her diet the way it is. Thyrogloss al duct cyst 98804945 Q89.2 Has been confusing because CT reported fluid density structure from upper left thyroid strap muscle through the thyrohyoid membrane deep to the hyoid bone in the midline, suggestive of a thyrogloss al duct cyst. Measuremen ts were 1.3 (T)x1.3 (AP) by 1.5 (sag). But U/S ([facility]) reported complex cyst measuring 1.6x1.4x1. 6 superior to the hyoid bone . Consult with [facility] reported that complex nodule was just inferior to hyoid bone so more c/w thyrogloss al duct cyst. This mass seems to periodical ly change in size and tenderness and associated (intermitt ently) with dysphagia sx. Plan is for surgery. [id number] Aryan Gabriel MD Endocrino logy, [address] [address] 04/04/2017 13:52:07 04/04/2017 14:59:13 Type 1 diabetes mellitus 37662407 E10.9 Excellent a1c in past on insulin pump- but has widely fluctuatin g BG values throughout day..Lows more often in AM but can happen sporadical ly other times.Part icular concern about lows since she relates at least one episode where she has no recollecti on of events ( treated with OJ), and another at work with rapid onset. Recalls value in 20s. However, she also has some very high values during day as well (including AM). Hard to make suggestion s without more informatio n- limited number of BG values on download (has different meter at work). Suggest she wear sensor for 1-2 weeks to see some of her patterns. Will try and get her to make appointmen t with Mariama Rodriguez. Doesn't use wizard for meals not eating a lot of CHO. Had suggested she see dietitian (Pamella Young) to review CHO counting with her diet the way it is. 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 Previous imaging: CT reported fluid density structure from upper left thyroid strap muscle through the thyrohyoid membrane deep to the hyoid bone in the midline, (c/w thyrogloss al duct cyst). Measuremen ts were 1.3 (T)x1.3 (AP) by 1.5 (sag). However, U/S ([facility]) reported complex cyst measuring 1.6x1.4x1. 6 superior to the hyoid bone . Otf reported that complex nodule was just inferior to hyoid bone so more c/w thyrogloss al duct cyst. Per patient, periodical ly changes in size and tenderness and associated (intermitt ently) with dysphagia sx. 04/03- Difficult to palpate today. [id number] Dracy Rodriguez, RN, BSN, [facility] DM Education , [facility] [address] [place] [address] 07/30/2017 09:57:01 07/30/2017 17:28:11 Uncontrolled type 1 diabetes mellitus [id number] E10.65 Met with Vanesa today for insulin pump training and diabetes education, kindly referred by Dr. Gabriel. Vanesa was shipped the new 670G Medtronic pump a few months ago and she called to schedule a training for it. She is also new to sensor technology and we spent time reviewing the sensor today. Download of her pump reveals she is changing her site every 3-5 days and she was encouraged to change it every 3 days. She does frequent manual boluses and does not enter carbohydra lester into her pump. She admits she only eats low carbohydra lester and all whole foods, mostly protein and vegetables . We discussed how she would benefit from using her carbohydra te ratio and correction factor with all of her boluses and try to enter in 5-10 grams for meals that are not high in carbohydra lester because she frequently stacks her insulin and then has low blood sugars. She had 26 low blood sugars in the last month on her pump download. They have improved since she adjusted her overnight basal rate on her own. Therefore, we did nto adjust overnight, however, we did adjust her 7 pm basal rate because she is frequently going low after dinner and it is likely due to her bolus, however, we did not know how she is calculatin g out her dose, therefore, we dropped her basal rate to down to 0.55 u/hr from 0.6 u/hr. She was encouraged to bolus for all of her meals now, at least 5-10 grams and we can adjust her carbohydra te ratios for her in the future. Currently her carbohydra te ratio of 1:11 grams and her correction factor of 1:50 mg/dl are both calculated out correctly. She has a relatively high active insulin time, therefore, we may need to adjust this in the future. She is going to start the sensor this week. We ran into some training difficulti es since her sensor was not fully charged and we could not start the sensor in the office today. Reviewed all the steps with her and she will try at home, however, if she has trouble she will return next week to review. We will then start Auto Mode next week if she is successful with the senor this week. She verbalized understand ing and agreeing with plan. Reviewed the following: -Filling of reservoir, type of insulin used, storage of insulin -Insertion of infusion site -Practice changing basal rates/tonny ection factor/ins ulin to carb ratio and active insulin time -When to suspend pump and disconnect ing infusion set - What items should always be carried when away from house. Insulin back-up plan. - When to call pump company versus when to contact diabetes provider. -Rotating sites, s/sx of infection, areas to avoid (ie stretch greene, birthmarks or scars). Infusion site types. -Treatment of hyperglyce rigo w/ pump. If over 250 mg/dl x2 without explanitat ion and has corrected, need to check for ketones, give correction via syringe or pen, then change infusion set. Check to see if insulin is compromise d. - Treatment of Hypoglycem ia. Rule of 15. - Use of temporary basal rate to prevent hypoglycem ia w/ increased activity, -Comfort level w/ carb counting and frequency of carb guessing . CGM instructio n provided: Instructio n Provided: -insertion of sensors and skin care - wetting and calibratin g system -frequency of changing sensors (ie 6 days) -Setting alarms and educating what alarms mean -Troublesh ooting -Using data to prevent hypoglycem ia -Set up of Carelink to upload data to providers Insulin pump present [id number] Z96.41 [id number] Aryan Gabriel MD Endocrino logy, [address] [address] 08/01/2017 14:14:29 08/01/2017 15:48:58 Type 1 diabetes mellitus 87672487 E10.9 Excellent a1c overall but problem with variabilit y including multiple lows with severe hypoglycem ic episode(s) . Patient was essentiall y unresponsi ve on 07/07/17 (could not respond to ) On insulin pump- but has widely fluctuatin g BG values throughout day.. Lows more often in AM but can happen sporadical ly other times. Often not checking sugars when giving boluses. Newest episode (07/02) when couldn't respond / talk with severe low.In past had one episode where she has no recollecti on of events ( treated with OJ), and another at work with rapid onset. Recalls value in 20s. However, she also has some very high values during day as well (including AM). Hard to make suggestion s without more informatio n- limited number of BG values on download (has different meter at work). Follow up with Mariama Rodriguez. Had suggested she see dietitian (Pamella Young) to review CHO counting with her diet the way it is. 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 Previous imaging: CT reported fluid density structure from upper left thyroid strap muscle through the thyrohyoid membrane deep to the hyoid bone in the midline, (c/w thyrogloss al duct cyst). Measuremen ts were 1.3 (T)x1.3 (AP) by 1.5 (sag). However, U/S ([facility]) reported complex cyst measuring 1.6x1.4x1. 6 superior to the hyoid bone . Otf reported that complex nodule was just inferior to hyoid bone so more c/w thyrogloss al duct cyst. Per patient, periodical ly changes in size and tenderness and associated (intermitt ently) with dysphagia sx. 04/03- Difficult to palpate today. Hypothyroidism 17853755 E03.9 OK on 75 mcg generic (1.99 in 05/04) [id number] Darcy Rodriguez, RN, BSN, [facility] DM Education , [facility] [address] [place] [address] 08/06/2017 09:49:10 08/06/2017 16:47:18 Uncontrolled type 1 diabetes mellitus [id number] E10.65 Met with Vanesa today for insulin pump training and diabetes education, kindly referred by Dr. Gabriel. Vanesa was trained a week ago how to use the 670G pump and reviewed how to use the sensor that communicat es with the pump. -A1C: We do not have a recent A1C on record. There are orders every 3 months to update this. -Pump: Medtronic 670G -Site Changes: Every 1-4 days. Had a reaction to the sensor tape in the last week. Has no trouble with the infusion site tape. She is allergic to latex. -Insulin: 27 units total per day with a basal/bolu s ratio of: 70/30% -Blood Sugars: 44% target range; 40% below range; and 16% above range in the last month. She has improved with entering in carbohydra lester with meals so we know when she is eating. -Hypoglyce rigo: No severe hypoglycem ia reported in the last week since she was last seen. She had one in June that was on a cruise that scared her. -Diet: All whole foods, home cooked meals, mostly vegetables , fairly low in carbohydra lester. -Exercise: Very physically active/fit . -Medicatio ns: Humalog 27 units via the pump. -Recommend ations: We called [employer] to discuss the sensor tape since she had such a reaction to it. She had a rash with blisters and it occurred within 24 hours of wearing the sensor. We confirmed that there is no latex in the tape of the sensor. [employer] will be mailing out a tape kit to her to see if she can try something else to hold the sensor down. We discussed how she could use a barrier to place on skin to protect her from the sensor tape. She has reacted to tegaderm in the past. Encouraged to schedule another appointmen t after she receives the tape kit to review further. She wanted to adjust her CHO ratio and correction factor because she feels she is manually increasing her doses and is not responding when she does bolus for food or correction . Told her that most of her blood sugars look like they are responding but she thinks that is due to her manual boluses. We did a few examples/c alculation s and she did not always manually adjust the bolus. Therefore, she was encouraged to only adjust it slightly. She changed her CHO Ratio ot 1:9 grams from 1:11 grams and her Correction to 1:45 mg/dl from 1:50 mg/dl. No other changes were made at this time. She was encouraged to keep up the great work. She verbalized understand ing and agreeing with plan. Reviewed the following: -Setting alarms and educating what alarms mean -Troublesh ooting -Using data to prevent hypoglycem ia -Set up of Carelink to upload data to providers Insulin pump present [id number] Z96.41 [id number] Aryan Gabriel MD Endocrino logy, [address] [address] 12/05/2017 12:49:30 12/05/2017 14:25:34 Hypothyroidism 36633368 E03.9 Thyroid not appreciabl e on exam. Pt. asymptomat ic of thyroid dysfunctio n at this visit.Cont inue on levothyrox ine 75 mcg (TSH= 2.5 in 08/01; was 1.99, FT4 1.12 in 05/04). Adult heal th examination 268562553 Z00.00 Pt. with subjective and objective exam findings consistent with URI, including productive cough, congestion , fevers, chills, body aches, and intermitte nt sore throat. Lungs clear. Chest x-ray ordered, which pt. planned to obtain after visit. Pt. started yesterday on augmentin 1 tab PO bid x 10 days. Will adjust plan as needed based on chest x-ray findings. Pt. encouraged to stay hydrated and rest. If symptoms worsen or do not improve, pt. encouraged to call PCP or go to ED.Discuss ed sick-day rules for management . ADDENDUM: CXR without evidence of pneumonia. Type 1 melania betes mellitus 42285574 E10.9 Per pt. A1c checked yesterday - 5.9 (08/01 - 6.0). Pt. very compliant with diet and exercise. Pt. switched to new insulin pump this summer and is unable to use CGM due to not tolerating tape for its sensor. BG values fluctuate greatly and pt. has not been able to take advantage of many features of the pump, including the auto basal rate. Pt. has needed to use multiple meters to check BG, however these were not able to download for two of the meters - limited data available from one meter. Pt. reports fewer lows overall. Pt. states highs are from difficulty with the pump. No changes will be made in management at this time, especially in light of upper respirator y infection. Discussed that pt. consider different brand of CGM, while it would not connect to pump, may provide more informatio n regarding BGs throughout the day. Reinforced education regarding sick day rules, which pt. verbalized understand ing of. recommend pt. follow up with hematology nurse educator. Insulin pump present [id number] Z96.41 see above- complicate s case. [id number] Aryan Gabriel MD Endocrino logy, [facility] [address] [place] [address] 04/09/2018 14:44:09 04/14/2018 06:25:19 Type 1 diabetes mellitus 05749074 E10.9 Per pt. A1c checked yesterday - 5.9 (08/01 - 6.0). Pt. very compliant with diet and exercise. Pt. switched to new insulin pump this summer and is unable to use CGM due to not tolerating tape for its sensor. BG values fluctuate greatly and pt. has not been able to take advantage of many features of the pump, including the auto basal rate. Pt. has needed to use multiple meters to check BG, however these were not able to download for two of the meters - limited data available from one meter. Pt. reports fewer lows overall. Pt. states highs are from difficulty with the pump. No changes will be made in management at this time but I will contact pump company ([employer]) to see about providing patient with additional support. Hypothyroidism 86462967 E03.9 Thyroid not appreciabl e on exam. Pt. asymptomat ic of thyroid dysfunctio n at this visit.Cont inue on levothyrox ine 75 mcgTSH= 3.68 (04/04); was 2.5 in 08/01; was 1.99, FT4 1.12 in 05/04). Insulin pump present [id number] Z96.41 see above- complicate s case. 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 Previous imaging: CT reported fluid density structure from upper left thyroid strap muscle through the thyrohyoid membrane deep to the hyoid bone in the midline, (c/w thyrogloss al duct cyst). Measuremen ts were 1.3 (T)x1.3 (AP) by 1.5 (sag). However, U[facility] ([facility]) reported complex cyst measuring 1.6x1.4x1. 6 superior to the hyoid bone . Otf reported that complex nodule was just inferior to hyoid bone so more c/w thyrogloss al duct cyst. Per patient, periodical ly changes in size and tenderness and associated (intermitt ently) with dysphagia sx. [id number] Aryan Gabriel MD Endocrino logy, [facility] [address] [place] [address] 10/01/2018 14:51:20 10/05/2018 07:18:26 Hypothyroidism 69733512 E03.9 Thyroid not appreciabl e on exam. Pt. asymptomat ic of thyroid dysfunctio n at this visit.Cont inue on levothyrox ine 75 mcgTSH= 3.68 (04/04); was 2.5 in 08/01; was 1.99, FT4 1.12 in 05/04). Update labs. Type 1 melania betes mellitus [id number] E10.9 No recent labs.Last A1c was 5.8 in 04/04. Pt. very compliant with diet and exercise.G enerally low CHO diet (she estimates 50g/d) with emphasis on proteins and veggies. Although she has 670 pump, she has had problems with sensor and has not used features to their advantage, including the auto basal rate. Pt. uses multiple meters to check BG. However these are not able to download to pump (for two of the meters)- therefore there are limited data available from one meter. Pt. reports fewer lows overall. Pt. states highs are from difficulty with the pump. No changes will be made in management at this time but I will contact pump company ([employer]) to see about providing patient with additional support. Insulin pump present [id number] Z96.41 see above- complicate s case. Thyrogloss al duct cyst [id number] Q89.2 Slightly atypical presentati on with mass above the hyoid (usually below).Sin ce the size seems to change (come and go per patient), she has not rushed to get surgery- also busy with 2 kids and heavy workload ([employer]). Previous imaging: CT reported fluid density structure from upper left thyroid strap muscle through the thyrohyoid membrane deep to the hyoid bone in the midline, (c/w thyrogloss al duct cyst). Measuremen ts were 1.3 (T)x1.3 (AP) by 1.5 (sag). However, [facility] ([facility]) reported complex cyst measuring 1.6x1.4x1. 6 superior to the hyoid bone . Otf reported that complex nodule was just inferior to hyoid bone so more c/w thyrogloss al duct cyst. Per patient, periodical ly changes in size and tenderness and associated (intermitt ently) with dysphagia sx. [id number] Aryan Gabriel MD Endocrino logy, [address] [address] 04/01/2019 14:56:01 04/02/2019 06:50:02 Type 1 diabetes mellitus 68031314 E10.9 A1c not done with 04/05 labs.A1c= 5.9 in 12/03. Pt. very compliant with diet and exercise.G enerally low CHO diet (she estimates 50g/d) with emphasis on proteins and veggies. Doing more intense exercise (Xfit and HIIT). Reports very high sugars during exercise (even into 300s) with occasional lows hours later. Although she has 670 pump, she does not use sensor and therefore doesn't use related features including the auto correct rate. Pt. uses multiple meters to check BG. However these are not able to download to pump (for two of the meters)- therefore there are limited data available from one meter. Pt. reports fewer lows overall. Pt. states highs are related to exercise. Additional time spent today discussing strategies to deal with glucose variabilit y during competitio ns (1day) and planned 3 day competitio n in August 2019. Suggest she keep basal on during exercise as she has been doing. After exercise, as sugar begins to drop, encourage her to go to lower temp basal (for one day events, may only need 50% but for 3 day events with repeated rounds, may need to decrease to 60-80% reduction in basal). Discussed concept of skeletal muscle absorbing glucose by insulin-in dependent means and increased insulin sensitivit y post-insul in lasting up to 12 hours. Decrease in basal post-exerc ise may help adjust for ramp up in sensitivit y. Hypothyroidism [id number] E03.9 No nodules. Previous thyrogloss al duct cyst not appreciate d today.Cont inue on levothyrox ine 75 mcgTSH= 1.62 (04/05); was 3.68 (04/04); was 2.5 in 08/01; was 1.99, FT4 1.12 in 05/04). Monitor labs. Thyrogloss al duct cyst [id number] Q89.2 Slightly atypical presentati on with mass above the hyoid (usually below).Sin ce the size seems to change (come and go per patient), she has not rushed to get surgery- also busy with 2 kids and heavy workload ([employer]). Previous imaging: CT reported fluid density structure from upper left thyroid strap muscle through the thyrohyoid membrane deep to the hyoid bone in the midline, (c/w thyrogloss al duct cyst). Measuremen ts were 1.3 (T)x1.3 (AP) by 1.5 (sag). However, U/[facility] ([facility]) reported complex cyst measuring 1.6x1.4x1. 6 superior to the hyoid bone . Otf reported that complex nodule was just inferior to hyoid bone so more c/w thyrogloss al duct cyst. Per patient, periodical ly changes in size and tenderness and associated (intermitt ently) with dysphagia sx. Currently monitoring this clinically . [id number] Aryan Gabriel MD Endocrino logy, [facility] [address] [place] [address] 12/23/2019 07:39:26 12/24/2019 07:48:46 Hypothyroidism [id number] E03.9 No nodules.Pandya s hx thyrogloss al duct cyst. Has not gone for surgeryCon tinue on levothyrox ine 75 mcgTSH= 1.62 (04/05); was 3.68 (04/04); was 2.5 in 08/01; was 1.99, FT4 1.12 in 05/04). Monitor labs. Uncontroll ed type 1 diabetes mellitus [id number] E10.65 needs Rx for humalog Type 1 melania betes mellitus 31955605 E10.9 Last A1c= 5.8 (01/03); was 5.9 (12/03); was was 5.8 in 04/04. Pt. very compliant with diet and exercise.G enerally low CHO diet (she estimates 50g/d) with emphasis on proteins and veggies. Although she has 670 pump, she has had problems with sensor and has not used features to their advantage, including the auto basal rate. Pt. uses multiple meters to check BG. However these are not able to download to pump (for two of the meters)- therefore there are limited data available from one meter. Pt. reports fewer lows overall. Pt. states highs are from difficulty with the pump. No changes will be made in management at this time but I will contact pump company ([employer]) to see about providing patient with additional support. Thyrogloss al duct cyst [id number] Q89.2 Slightly atypical presentati on with mass above the hyoid (usually below).Sin ce the size seems to change (come and go per patient), she has not rushed to get surgery- also busy with 2 kids and heavy workload ([employer]). Previous imaging: CT reported fluid density structure from upper left thyroid strap muscle through the thyrohyoid membrane deep to the hyoid bone in the midline, (c/w thyrogloss al duct cyst). Measuremen ts were 1.3 (T)x1.3 (AP) by 1.5 (sag). However, [facility] ([facility]) reported complex cyst measuring 1.6x1.4x1. 6 superior to the hyoid bone . Otf reported that complex nodule was just inferior to hyoid bone so more c/w thyrogloss al duct cyst. Per patient, periodical ly changes in size and tenderness and associated (intermitt ently) with dysphagia sx. Currently monitoring this clinically . [id number] Aryan Gabriel MD Endocrino logy, [address] [address] 06/15/2020 10:40:19 06/16/2020 07:17:55 Type 1 diabetes mellitus [id number] E10.9 Last A1c= 5.8 (01/03); was 5.9 (12/03); was was 5.8 in 04/04. Pt. very compliant with diet and exercise. Generally low CHO diet (she estimates 50g/d) with emphasis on proteins and veggies. Although she has 670 pump, she has had problems with sensor and has not used features to their advantage, including the auto basal rate. Pt. uses multiple meters to check BG. However these are not able to download to pump (for two of the meters)- therefore there are limited data available from one meter. Pt. reports fewer lows overall. Pt. states highs are from difficulty with the pump. No changes will be made in management at this time Hypothyroidism [id number] E03.9 Continue on levothyrox ine 75 mcg TSH= 1.86 (06/04); was 1.62 (04/05); was 3.68 (04/04); was 2.5 in 08/01; was 1.99, FT4 1.12 in 05/04). Monitor labs. No nodules. Has hx thyrogloss al duct cyst. Has not gone for surgery Thyrogloss al duct cyst [id number] Q89.2 Slightly atypical presentati on with mass above the hyoid (usually below).Sin ce the size seems to change (come and go per patient), she has not rushed to get surgery- also busy with 2 kids and heavy workload ([employer]). Previous imaging: CT reported fluid density structure from upper left thyroid strap muscle through the thyrohyoid membrane deep to the hyoid bone in the midline, (c/w thyrogloss al duct cyst). Measuremen ts were 1.3 (T)x1.3 (AP) by 1.5 (sag). However, [facility] ([facility]) reported complex cyst measuring 1.6x1.4x1. 6 superior to the hyoid bone . Otf reported that complex nodule was just inferior to hyoid bone so more c/w thyrogloss al duct cyst. Per patient, periodical ly changes in size and tenderness and associated (intermitt ently) with dysphagia sx. Currently monitoring this clinically . [id number] Aryan Gabriel MD Endocrino logy, [facility] [address] [place] [address] 01/25/2021 09:33:53 03/18/2021 13:28:01 Hypothyroidism 26528250 E03.9 Continue on levothyrox ine 75 mcg TSH= 1.41 (02/04); was 1.86 (06/04); was 1.62 (04/05); was 3.68 (04/04); was 2.5 in 08/01; was 1.99, FT4 1.12 in 05/04). Monitor labs. No nodules. Has hx thyrogloss al duct cyst. Has not gone for surgery Type 1 melania betbonita mellitus [id number] E10.9 Last A1c= 5.9 (02/04); was 5.8 (01/03); was 5.9 (12/03); was was 5.8 in 04/04. Generally low CHO diet (she estimates 50g/d) with emphasis on proteins and veggies. Although she has 670 pump, she has had problems with sensor and has not used features to their advantage, including the auto basal rate. Pt. uses multiple meters to check BG. However these are not able to download to pump (for two of the meters)- therefore there are limited data available from one meter. Pt. reports fewer lows overall. Pt. states highs are from difficulty with the pump. 02/04: Pt has adjusted MN-4AM basal rates recently. She reports she is not having lows as before.Kandi dawson is try and create better assessment of her control as part of her care.Optio ns: Use strips and record values (since using multiple meters) vs. new sensor vs. new pump that connects to new sensor. No changes will be made in management at this timeAdditi onal time used for discussing issues related to her frequent and severe hypoglycem ia.There is a current and ongoing significan t concern for the this patient's risk for severe hypoglycem ia causing serious health consequenc es. Thyrogloss al duct cyst [id number] Q89.2 Slightly atypical presentati on with mass above the hyoid (usually below).Sin ce the size seems to change (come and go per patient), she has not rushed to get surgery- also busy with 2 kids and heavy workload ([employer]). Previous imaging: CT reported fluid density structure from upper left thyroid strap muscle through the thyrohyoid membrane deep to the hyoid bone in the midline, (c/w thyrogloss al duct cyst). Measuremen ts were 1.3 (T)x1.3 (AP) by 1.5 (sag). However, [facility] ([facility]) reported complex cyst measuring 1.6x1.4x1. 6 superior to the hyoid bone . Otf reported that complex nodule was just inferior to hyoid bone so more c/w thyrogloss al duct cyst. Per patient, periodical ly changes in size and tenderness and associated (intermitt ently) with dysphagia sx. Currently monitoring this clinically . [id number] Aryan Gabriel MD Endocrino logy, [address] [address] 08/23/2021 10:46:15 10/11/2021 07:57:36 Type 1 diabetes mellitus [id number] E10.9 Last A1c= 5.9 (02/04); was 5.8 (01/03); was 5.9 (12/03); was was 5.8 in 04/04. Generally low CHO diet (she estimates 50g/d) with emphasis on proteins and veggies. Although she has 670 pump, she has had problems with sensor and has not used features to their advantage, including the auto basal rate. Pt. uses multiple meters to check BG. However these are not able to download to pump (for two of the meters)- therefore there are limited data available from one meter. Pt. reports fewer lows overall. Pt. states highs are from difficulty with the pump. 02/04: Pt adjusted MN-4AM basal rates. She reports she is not having lows as before.Kandi dawson is try and create better assessment of her control as part of her care.Optio ns: Use strips and record values (since using multiple meters) vs. new sensor vs. new pump that connects to new sensor. No changes will be made in management at this timeAdditi onal time used for discussing issues related to her frequent and severe hypoglycem ia.There is a current and ongoing significan t concern for the this patient's risk for severe hypoglycem ia causing serious health consequenc es. Hypothyroidism [id number] E03.9 Continue on levothyrox ine 75 mcg TSH= 1.41 (02/04); was 1.86 (06/04); was 1.62 (04/05); was 3.68 (04/04); was 2.5 in 08/01; was 1.99, FT4 1.12 in 05/04). Monitor labs. Has hx thyrogloss al duct cyst. Has not gone for surgery Thyrogloss al duct cyst [id number] Q89.2 Slightly atypical presentati on with mass above the hyoid (usually below).Sin ce the size seems to change (come and go per patient), she has not rushed to get surgery- also busy with 2 kids and heavy workload ([employer]). Previous imaging: CT reported fluid density structure from upper left thyroid strap muscle through the thyrohyoid membrane deep to the hyoid bone in the midline, (c/w thyrogloss al duct cyst). Measuremen ts were 1.3 (T)x1.3 (AP) by 1.5 (sag). However, [facility] ([facility]) reported complex cyst measuring 1.6x1.4x1. 6 superior to the hyoid bone . Otf reported that complex nodule was just inferior to hyoid bone so more c/w thyrogloss al duct cyst. Per patient, periodical ly changes in size and tenderness and associated (intermitt ently) with dysphagia sx. Currently monitoring this clinically . [id number] Aryan Gabriel MD Endocrino logy, [address] [address] 03/21/2022 11:00:39 03/29/2022 11:35:12 Type 1 diabetes mellitus 71795625 E10.9 Last A1c= pending (04/08); was 5.9 (02/04); was 5.8 (01/03); was 5.9 (12/03); was was 5.8 in 04/04. Generally low CHO diet (she estimates 50g/d) with emphasis on proteins and veggies. Although she has 670 pump, she has had problems with sensor and has not used features to their advantage, including the auto correct features. Pt. uses multiple meters to check BG. However these are not able to download to pump (for two of the meters)- therefore there are limited data available from one meter. Pt. reports fewer lows overall. Pt. acknowledg es will let herself run high sometimes to avoid lows. Has observed that BG increase in response to vigorous exercise and feels they return towards target range after exercise.G oal is try and create better assessment of her control as part of her care. Options: Use strips and record values (since using multiple meters) vs. new sensor vs. new pump that connects to new sensor. No changes will be made in management at this time.Await a1c (04/08)- If high, will want to push idea of new pump with CGM and set up parameters to help her feel comfortabl e allowing some autocorrec t feature.If a1c not high, still could be problem with good average but wide variabilit y (high values are present frequently in pump download- real question then is whether they are offset by unrecogniz ed lows). Additional time used for discussing issues related to her frequent and severe hypoglycem ia.There is a current and ongoing significan t concern for the this patient's risk for severe hypoglycem ia causing serious health consequenc es. Hypothyroidism 33662331 E03.9 Continue on levothyrox ine 75 mcg TSH= 1.54 (09/05); was 1.41 (02/04); was 1.86 (06/04); was 1.62 (04/05); was 3.68 (04/04); was 2.5 in 08/01; was 1.99, FT4 1.12 in 05/04). Monitor labs. Has hx thyrogloss al duct cyst. Has not gone for biopsy or surgery. Thyrogloss al duct cyst [id number] Q89.2 Slightly atypical presentati on with mass above the hyoid (usually below).Sin ce the size seems to change (come and go per patient), she has not rushed to get surgery- also busy with 2 kids and heavy workload ([employer]). Previous imaging: CT reported fluid density structure from upper left thyroid strap muscle through the thyrohyoid membrane deep to the hyoid bone in the midline, (c/w thyrogloss al duct cyst). Measuremen ts were 1.3 (T)x1.3 (AP) by 1.5 (sag). However, [facility] ([facility]) reported complex cyst measuring 1.6x1.4x1. 6 superior to the hyoid bone . Otf reported that complex nodule was just inferior to hyoid bone so more c/w thyrogloss al duct cyst. Per patient, periodical ly changes in size and tenderness and associated (intermitt ently) with dysphagia sx. Currently monitoring this clinically .check chromogran in A- may want to consider urine 5HIAA. [id number] Aryan Gabriel MD Endocrino logy, [address] [address] 06/04/2022 12:43:55 06/06/2022 13:25:31 Thyroglossal duct cyst [id number] Q89.2 By clinical hx. [id number] Aryan Gabriel MD Endocrino logjaimie, [address] [address] 06/24/2022 16:17:23 06/27/2022 11:28:01 Thyroglossal duct cyst [id number] Q89.2 Presumed based on presentati on and clinical hx. Previous imaging: CT reported fluid density structure from upper left thyroid strap muscle through the thyrohyoid membrane deep to the hyoid bone in the midline, (c/w thyrogloss al duct cyst). Measuremen ts were 1.3 (T)x1.3 (AP) by 1.5 (sag). However, U/[facility] ([facility]) reported complex cyst measuring 1.6x1.4x1. 6 superior to the hyoid bone . If this is superior to hyoid, it is an atypical presentati on with mass above the hyoid (usually below). Otf reported that complex nodule was just inferior to hyoid bone so more c/w thyrogloss al duct cyst. Per patient, periodical ly changes in size and tenderness and associated (intermitt ently) with dysphagia sx. Since the size seems to change (come and go per patient), she has not rushed to get surgery- also busy with 2 kids and heavy workload ([employer]). Bx done 06/06 was non-diagno stic.Revie wed that she could have repeat bx (non-diagn ostic biopsies have 50/50 chance of returning cells the next time). Alternativ e would be to continue to monitor with exam and u/s.- She prefers monitoring . Will plan for f/u ultrasound in early 2023. [id number] Aryan Gabriel MD Endocrino logy, [address] [phone] 11/07/2022 10:57:01 01/14/2023 08:01:54 Type 1 diabetes mellitus [id number] E10.9 Last A1c= 5.7 (11/06); was 6.3 (04/08); was 5.9 (02/04); was 5.8 (01/03); was 5.9 (12/03); was was 5.8 in 04/04. In past has had generally low CHO diet (she estimates 50g/d) with emphasis on proteins and veggies.: Increasing CHO because of daughter's recent problems with disordered eating. Whole family is participat ing in effort.Alt celia she has 670 pump, she has had problems with sensor and has not used features to their advantage, including the auto correct features. Pt. also uses multiple meters to check BG. These are not able to download to pump (for two of the meters)- therefore there are limited data available from one meter. Pt. reports fewer lows overall. Pt. acknowledg es will let herself run high sometimes to avoid lows. Has observed that BG increase in response to vigorous exercise and feels they return towards target range after exercise.G oal is try and create better assessment of her control as part of her care. Options: Use strips and record values (since using multiple meters) vs. new sensor vs. new pump that connects to new sensor. Additional time used for discussing issues related to her past issues with frequent and severe hypoglycem ia. There is a current and ongoing significan t concern for the this patient's risk for severe hypoglycem ia causing serious health consequenc es. 11/06: A1c at goal even with increased CHO in her diet. Some highs in late afternoon. Suggest increase in CHO ratio then. *change CHO ratio. noon from 9.0 to 8.5.* Hypothyroidism 06013011 E03.9 Continue on levothyrox ine 75 mcg TSH= 2.31 (11/06) was 2.30 (04/08) was 1.54 (09/05); was 1.41 (02/04); was 1.86 (06/04); was 1.62 (04/05); was 3.68 (04/04); was 2.5 in 08/01; was 1.99, FT4 1.12 in 05/04). Monitor labs. Has hx thyrogloss al duct cyst. Has not gone for biopsy or surgery. Thyrogloss al duct cyst [id number] Q89.2 Slightly atypical presentati on with mass above the hyoid (usually below). Previous imaging: CT reported fluid density structure from upper left thyroid strap muscle through the thyrohyoid membrane deep to the hyoid bone in the midline, (c/w thyrogloss al duct cyst). Measuremen ts were 1.3 (T)x1.3 (AP) by 1.5 (sag). However, U/[facility] ([facility]) reported complex cyst measuring 1.6x1.4x1. 6 superior to the hyoid bone . Otf reported that complex nodule was just inferior to hyoid bone so more c/w thyrogloss al duct cyst. Had normal chromogran in A (04/08) Since the size seems to change (come and go per patient), she has not rushed to get surgery- also busy with 2 kids and heavy workload ([employer]). Per patient, periodical ly changes in size and tenderness and associated (intermitt ently) with dysphagia sx. Had biopsy 06/06 which was non-diagno stic but did aspirate some fluid from nodule. Pt says that nodule seems smaller overall. [id number] Aryan Gabriel MD Endocrino logy, [address] [address] 05/15/2023 10:36:35 06/21/2023 08:08:25 Hypothyroidism 31313831 E03.9 Continue on levothyrox ine 75 mcg TSH= 2.18 (05/10) was 2.31 (11/06) was 2.30 (04/08) was 1.54 (09/05); was 1.41 (02/04); was 1.86 (06/04); was 1.62 (04/05); was 3.68 (04/04); was 2.5 in 08/01; was 1.99, FT4 1.12 in 05/04). Monitor labs. Has hx thyrogloss al duct cyst. Has not gone for biopsy or surgery. Thyrogloss al duct cyst [id number] Q89.2 Slightly atypical presentati on with mass above the hyoid (usually below). Previous imaging: CT reported fluid density structure from upper left thyroid strap muscle through the thyrohyoid membrane deep to the hyoid bone in the midline, (c/w thyrogloss al duct cyst). Measuremen ts were 1.3 (T)x1.3 (AP) by 1.5 (sag). However, U/[facility] ([facility]) reported complex cyst measuring 1.6x1.4x1. 6 superior to the hyoid bone . Otf reported that complex nodule was just inferior to hyoid bone so more c/w thyrogloss al duct cyst. Had normal chromogran in A (04/08) Since the size seems to change (come and go per patient), she has not rushed to get surgery- also busy with 2 kids and heavy workload ([employer]). Per patient, periodical ly changes in size and tenderness and associated (intermitt ently) with dysphagia sx. Had biopsy 06/06 which was non-diagno stic but did aspirate some fluid from nodule. Pt says that nodule seems smaller overall. Type 1 melania betes mellitus [id number] E10.9 ACR= 4.9 (05/10)05/10 : 154/42/71/ 75tsh= 2.18 (05/10): TT4= 6.7 (05/10) A1c= 5.7 (05/10 and 11/06); was 6.3 (04/08); was 5.9 (02/04); was 5.8 (01/03); was 5.9 (12/03); was was 5.8 in 04/04. In past has had generally low CHO diet (she estimates 50g/d) with emphasis on proteins and veggies.20 23: Increasing CHO because of daughter's recent problems with disordered eating. Whole family is participat ing in effort.Alt celia she has 670 pump, she has had problems with sensor and has not used sensor feature, thus preventing use of auto correct features. Pt. also uses multiple meters to check BG. These are not able to download to pump (for two of the meters)- therefore there are limited data available from one meter. Pt. reports fewer lows overall. Pt. acknowledg es will let herself run high sometimes to avoid lows. Has observed that BG increase in response to vigorous exercise and feels they return towards target range after exercise.G oal is to try and create better assessment of her control as part of her care. Options: Use strips and record values (since using multiple meters) vs. new sensor vs. new pump that connects to new sensor. Additional time used for discussing issues related to her past issues with frequent and severe hypoglycem ia. There is a current and ongoing significan t concern for the this patient's risk for severe hypoglycem ia causing serious health consequenc es. 11/06: A1c at goal even with increased CHO in her diet. Some highs in late afternoon. Suggest increase in CHO ratio then. *change CHO ratio. noon from 9.0 to 8.5.* 05/10: highs later evening but shortly after dinner. sometimes high 2AM. Multiple boluses are d/t deliver failure (problem with supplies recently). No changes at present since can't determine pattern based on intermitte nt entries of POC values.Hop e to have her get new pump that will allow her to feel better about use of sensor and then autocorrec t feature. [id number] Aryan Gabriel MD Endocrino logy, [facility] [address] [place] [address] 12/11/2023 10:55:14 12/16/2023 08:53:40 Type 1 diabetes mellitus [id number] E10.9 A1c= 6.3% (12/08); was 5.7 (05/10 and 11/06); was 6.3 (04/08); was 5.9 (02/04); was 5.8 (01/03); was 5.9 (12/03); was was 5.8 in 04/04. In past has had generally low CHO diet (she estimates 50g/d) with emphasis on proteins and veggies.20 23: Increasing CHO because of daughter's recent problems with disordered eating. Whole family is participat ing in effort. 2023: ongoing issue for family.Muc h happier with Mobi (changed from [employer]) . Pt. reports fewer lows overall with current system.Not exercising as much as in past (X-fit but not competitiv e) Ongoing discussion - Past issues with frequent and severe hypoglycem ia. (Sz on cruise)The re is a current and ongoing significan t concern for the this patient's risk for severe hypoglycem ia causing serious health consequenc es. 11/06: A1c at goal even with increased CHO in her diet. Some highs in late afternoon. Suggest increase in CHO ratio then. *change CHO ratio. noon from 9.0 to 8.5.* 05/10: highs later evening but shortly after dinner. sometimes high 2AM.12/08: Less hypoglycem ia. Overall better with Mobi/Dexco m. Hypothyroidism [id number] E03.9 Continue on levothyrox ine 75 mcg TSH= 2.24 (12/08); was 2.18 (05/10) was 2.31 (11/06) was 2.30 (04/08) was 1.54 (09/05); was 1.41 (02/04); was 1.86 (06/04); was 1.62 (04/05); was 3.68 (04/04); was 2.5 in 08/01; was 1.99, FT4 1.12 in 05/04). Monitor labs. Also Has hx thyrogloss al duct cyst. Bx in past was non-diagno stic.Has been painful on occasion.W orking with Otf to identify date for surgery. 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 Measuremen ts were 1.3 (T)x1.3 (AP) by 1.5 (sag). However, U/S (Bly) reported complex cyst measuring 1.6x1.4x1. 6 superior to the hyoid bone . Otf reported that complex nodule was just inferior to hyoid bone so more c/w thyrogloss al duct cyst. Had normal chromogran in A (04/08) Had biopsy 06/06 which was non-diagno stic but did aspirate some fluid from nodule. Pt says that nodule seems smaller overall. Per patient, periodical ly changes in size and tenderness and associated (intermitt ently) with dysphagia sx. Has become to be more frequently painful.Augusto patino has consulted with Dr. Vanessa- will be jimbo lino time for surgery. [id number] Aryan Gabriel MD Endocrino logy, [facility] [address] [place] [address] 07/01/2024 16:30:48 07/02/2024 07:27:18 Type 1 diabetes mellitus [id number] E10.9 A1c= 6.2 (07/09); was 6.3% (12/08); was 5.7 (05/10 and 11/06); was 6.3 (04/08); was 5.9 (02/04); was 5.8 (01/03); was 5.9 (12/03); was was 5.8 in 04/04.Marvin delgado discussion - Past issues with frequent and severe hypoglycem ia. (Sz on cruise)The re is a current and ongoing significan t concern for the this patient's risk for severe hypoglycem ia causing serious health consequenc es. In past has had generally low CHO diet (she estimates 50g/d) with emphasis on proteins and veggies.20 23: Increasing CHO because of daughter's recent problems with disordered eating. Whole family is participat ing in effort.10/16 3: A1c at goal even with increased CHO in her diet. Some highs in late afternoon. Suggest increase in CHO ratio then. *change CHO ratio. noon from 9.0 to 8.5.* MOBI: fewer lows overall with current system.Not exercising as much as in past (X-fit but not competitiv e) 2023: ongoing issue for family. Much happier with Mobi (changed from [employer]tr[employer]) .05/10: highs later evening but shortly after dinner. sometimes high 2AM.12/08: Less hypoglycem ia. Overall better with Mobi/Dexco m. 07/09: at goal both A1c and TIR. Lows at 4%- some pseudo (pressure at location of sensor) but some may be from autocorrec t (although has some o/n in sleep mode when correction is mostly small increases in basal. If clinically problemati c, will have her send more complete download to review (currently correction is 1:50 entire 24h). Hypothyroidism [id number] E03.9 Continue on levothyrox ine 75 mcg TSH= 3.15 (07/09) was 2.24 (12/08); was 2.18 (05/10) was 2.31 (11/06) was 2.30 (04/08) was 1.54 (09/05); was 1.41 (02/04); was 1.86 (06/04); was 1.62 (04/05); was 3.68 (04/04); was 2.5 in 08/01; was 1.99, FT4 1.12 in 05/04). Monitor labs. Also Has hx thyrogloss al duct cyst. Bx in past was non-diagno stic.Has been increasing uncomforta ble and intermitte ntly painful.Pandya s seen Otf- surgery planned for 10/08 Thyrogloss al duct cyst [id number] Q89.2 Slightly atypical presentati on with mass above the hyoid (usually below).Exa m notes this is high in neck (towards left) Previous imaging: CT reported fluid density structure from upper left thyroid strap muscle through the thyrohyoid membrane deep to the hyoid bone in the midline, (c/w thyrogloss al duct cyst). Measuremen ts were 1.3 (T)x1.3 (AP) by 1.5 (sag). However, U/S (Bly) reported complex cyst measuring 1.6x1.4x1. 6 superior to the hyoid bone . Otf reported that complex nodule was just inferior to hyoid bone so more c/w thyrogloss al duct cyst. Had normal chromogran in A (04/08) Had biopsy 06/06 which was non-diagno stic but did aspirate some fluid from nodule. Pt says that nodule seems smaller overall. Per patient, periodical ly changes in size and tenderness and associated (intermitt ently) with dysphagia sx. 07/09: Has become more frequently uncomforta ble/painfu l.Patient has consulted with Dr. Vanessa- surgery planned for 10/08. Health Concerns Section Related Observation LastModified by Organization Detmilagros ls LastModified Time None Recorded Concern Status LastModified by Organization Details LastModified Time None Recorded Advance Directives Directive None Recorded Payers Encounter Date Sequence Insurance Name Policy Number Policy Randhawa Covered Member ID Randhawa Member ID Guarantor Name 06/24/2022 1 [employer] (POS) [id number] Vanesa Dawson O'Galdino [id number] Vanesa Quiroz O'Galdino 11/07/2022 1 [employer] (POS) [id number] Vanesa L O'Galdino [id number] Vanesa Quiroz O'Galdino 05/15/2023 1 [employer] [place] [id number] Vanesa L Urabn [id number] Vanesa Quiroz O'Galdino 12/11/2023 1 [employer] [place] [id number] Vanesa L Urban [id number] Vanesa Quiroz O'Galdino 07/01/2024 1 [employer] [place] [id number] Vanesa L Urban [id number] Vanesa Quiroz O'Galdino Notes Date Note Type Note Provider Name and Address Organization Details Recorded Time 023 text/ht ml Type 1 diabetes mellitushypothyroidismthyroglossal duct cystPT had biopsy done on 06/04/22LAst thyroid US on 10/05PT to discuss biopsy results todayPt had no soreness after biopsy. Did well after biopsy.Few days of being sore. No fevers. No continued pain. No trouble swallowing. Some decrease in size initially but has re-accumulated. Aryan Gabriel MD [address] [place] [address], [phone] , [facility] 06/24/2022 17:38:06 023 text/ht ml DiabetesReported bypatient.Labs:last Hemoglobin A1C: at goal (5.7 (11/06); was 6.3 (04/08); was 5.9 (02/04); was 5.8 (01/03); done 04/05; was 5.9 (12/03); was 5.8 (04/04); generally under 6.5%.); microalbumin/creatinine ratio: 03/2022 normal (consistently below 10); serum creatinine: normal (consistently below 1.0); LDL at goal (78 (09/05); was60.2 (02/04); was 87 (01/03); was 81 (04/05);); Triglycerides at goal (80 (09/05); 49 (02/04); was 33 (01/03): was 44 (04/05); was 44 (04/04)); HDL at goal (53 (09/05); was 78 (02/04); was 72 (01/03); was 71 in 04/05;); 11/06: 178/53/89/76; Diabetes Medications:lispro (in pump.) Insulin pump settings:- See pump download- Renal/HTN Medications:No renal/HTN meds. Lipid Medications:No lipids meds. Review blood sugar:monitoring glucose 4 times per day; - See pump download- General pattern has been- occ lows and has some highs towards HS (late dinners). Lots of lows in AM (40-60) Not using 670; Associated Symptoms:no polyuria; no nocturia; no burning or discomfort with urination;foul odor or discharge(Ongoing- chronic itching and irritated- weekly fluconizole from [employer] (Marquise). 11/06 prophylactic diflucan.); no polydypsia; no blurred vision; 11/06: ongoing weekly fluconazole maintaining. Suggest URO-[employer]. Cardiac / Eye / Podiatric / Renal / Vascular Symptomsno retinopathy (Dolores (2021). due 01/06. Had seen Noel who found mole OS- Stable.); no numbness of feet; no kidney disease; no neuropathy Hypoglycemia Symptomsfrequency of hypoglycemic episodesweekly (11/06: less than in past (dealing with daughter's eating disorder). Sets alarm for 2AM because happens then.In past, has had seizure activity when over night if doesn't wake up to check. ); Feels hungry when hypoglycemic (ravenous); Dizziness when hypoglycemic (like an airhead. spacy.); More overnight. Seizure during cruise in june 2017 Wakes at 2AM when lows usually occur.Notes:Notes increase in sugars after exercise- knows about increase in sensitivity post exerciseShe reports: BG up into 200-300 during intense exercise but will drop hours later with hypoglycemia.Was doing competitive X-fit and competing (successfully). Not competing during pandemic. In past: mostly has a high protein, high fat, minimal carb diet. Pt. exercises daily.50 grams of CHO per day. LABS:ACR= 7 (09/05):LIPIDS:171/80/53/78 (09/05)165/33/72/87 (01/03) OTHER:ast/alt= 31/ (09/05); OK in 01/03; was 41/23 (04/05); tsh/fT4= 2.31/1.1 (11/06); was 1.54/1.4 (09/05); tsh= 2.4 (01/03)vitD = 74.3 (2019) Has Medtronic 670g but hates it. Won't use sensor or autocorrect. Tests multiple times throughout day.Pt states setting are same from last visit14 days: 04/08: Having almost no lows but BG clearly much higher. She reports checking with other meters that don't upload to pump so those values are unknown.Have discussed using one meter but she really likes old One Touch. Discussed option of eversense- doesn't like since still have to wear sleeve transmitter over arm.Other options: paper logs. Many supplements: chronically D-histamine (stinging beverly, quercitin and vit C). Much less URIs. Aledo leaf acutely. Tried mixture of B vitamins and had severe hyperglycemia.In past, has used fluconazole for chronic vaginal candidiasis. Total Daily Dose: 50.4 (02/04)Basal/Bolus= 42/58 (04/08); was 39/61 (02/04) 14 days:Total Daily Dose :54.375% Basal : 19.625 (36%)% Bolus: 34.75 (64%)Total Carbs : 0 Basal: bolus= 40:60; was 39:61 (04/04); was 45:55.In past, pump download notes frequent overrides. OLD LABS: LDL=was 81 (04/04); was 69 (08/31)- was 103 (04/2015)HDL= was 71 (04/04); was 76 (08/31)- was 69 (05/02) ThyroidReported bypatient.Previous Evaluation:TSH: (1.54 (09/05); was 1.41 (02/04); was 2.4 (01/03); was 1.62 (04/05);); free T4: (1.4 (09/05); was 1.26 (02/04); ); TPO abs: (86 (+) in 9.12) Treatment:generic, dose: 75 mcg (daily); Takes in AM- coffee within 15 minutes. 1 hour before eats. T4 was started after post- thyroiditis. Constitutional:no cold intolerance; no heat intolerance; no weight loss; no weight gain; Wt= 173 (11/06); was 164 (04/08); was 165 (01/03) Pt. having different diet to support Marquise. And not exercising. Eyes:opthamologist: (Dolores.); no double vision; no dry eyes Neck:no difficulty swallowing; no voice changes;masses(Still there- no change. can be tender if gets inflamed. not so bad.); Slightly smaller and less tender since bx. Presumed thyroglossal duct cyst- presented with sudden pain in neck- went for u/s which showed 1.4x1.6x1.5 cm cystic structure in left submandibular region. Hasn't gone for surgery. No episodes of pain - usually after URI. Takes NSAIDs and feels better. Heart:no rapid heart rate; no palpitations; no chest pain; no tightness or pressure; No recent episodes No recent darcie episodes or syncope as in past- largely post-exercise. In 2017 had slow rate in 40s after half-marathon (2:12) with at least 2 syncopal bouts and n/v. Also with terrible abdominal pain. No CP. Has been to [facility] and had right heart cath which showed nothing. Never got to have measurements post-exercise. GI:no constipation; no diarrhea :abnormal menstrual periods(but having something every 5-6 weeks.); Periods normal lately. Had been regular-ricardo. Since has gained weight (body fat around 31%). Discussed issue of body fat and menstrual function. Her description of fat jiggling . 01/2019: Right ovarian cyst- put on OCP- developed superficial VT in right thigh. Off OCP. No hot flashes with return of menses Neurological:no tremor; no anxiety (except as per family.); no insomniaNotes:THYROGLOSSAL DUCT CYST: Originally found due to pain in mid/left neck (January 2016) Was painful swallowing- solids and liquids. Had increasing hoarseness and seemed visible. U/S found small right nodule but pt. pointed out tenderness towards left and abnormality was identified. Original u/s measured area in left submandibular area described as having central septation. 1.4x1.6x1.5. Sent for CT which showed midline complex cystic nodule above the hyoid with conclusion that it was a thyroglossal duct cyst. CT report (03/01) describes this as: Fluid density structure from upper left thyroid strap muscle through the thyrohyoid membrane deep to the hyoid bone in the midline, suggestive of a thyroglossal duct cyst. measurements were 1.3 (t)x1.3 (AP) by 1.5 (sag). Question has been raised about connection between thyroglossal duct cyst and near-syncope. -EXERCISE INDUCED BRADYCARDIA AND NEAR-SYNCOPE(01/2016):Hardly any problems as long as she hyperventilates post-exercise. Otherwise, gets blue lips. Originally, happened during half marathon (not her first. felt poorly by mile 3). At end, was very dizzy with abdominal pain and vomiting. Fainted at home. BG was 94.Previous syncopal episode - 09/2015- attributed to dehydration (shoveling rocks and went for run and hot). Pulse was in 40s- weak.Saw Kelby (cardiology): Bradycardia resolved. Normal stress echo.Question of whether thyroglossal duct cyst might have caused pressure like a carotid massage as cause of bradycardia. Found nothing cardiac otherwise. Fitbit has shown HR in 30-40s when has sx and thyroglossal cyst seems larger and more inflamed. This happens every 2-3 weeks- gets bigger and painful- easy to see then. 04/08: Uptick in rhinitis sx (allergies)- also notices increase in neck mass.' OLD LABS:TSH= was 3.68 (04/04); was 1.99 (05/04); was 1.98 (08/31)_ was 1.11 (2014) was 0.73 (10/28)- was 0.9 (11/27)- was 1.8 (03/29)- was 9.28 (11/26) following post- thyroiditis (2011) fT4= was 1.12 (04/04); was 1.12 (05/04); was 1.11 (08/31)- was 1.07 (10/2013)- was 1.26 (11/27) PCP is Shelley. Follow-Up: thyroid function tests abnormalFollow-Up: type 1 diabetes mellitus uncontrolledFollow-Up: hypothyroidismLV on 04/08Last labs on 04/08 A1C-6.3-labs done 11/06/22 PT has results on her phone can show you.Lab orders in place until 03/2023Last thyroid US on 10/05PT had biopsy on 06/06PT has Pump/medtronic will download to chart Thyroglossal duct cyst F/U T1DM on pump.PT has Pump will download to chart PAST MEDICAL Hx (updated):Mom reports on hx of Dengue Fever in 06/2015.01/30- Recent problem during half-marathon- blue lips and brief syncopal episodes x 2 (about). HR (from mom) was in the 40s.08/01- SEIZURE on cruise due to low sugar.10/02- [facility]win (cardiology) did cardiopulmonary ET (CPET)- retaining CO2. respiratory rate dropped. MG repeated and did right heart cath - told eveything was fine but didn't get to have measurements done in post-exercise phase (stuck in wedge) and she typically gets her sx after exercise. Didn't even get to max HR (170 x 10 seconds)Fluconazole weekly for chronic yeast 11/06: no changes. SOCIAL Hx (updated):09/05: Estranged from mom/dad and Denita. Wasn't included in Denita's wedding republican (changed date and pt already had plans for cruise).Pt feels mom and pain meds have been an issue. Tried to set boundaries and difficult interaction. 04/08: In contact with Melva and Ladi. (Ancestry showed Ladi has different dad).11/06: Exercise- when I can ; stress from daughter's eating disorder. Pt still working FAMILY/ KIDS:Marquise (ryan 2007)- EDS: Pain/palliative. has Rheum. all out of [place] Children.Reginald (2011): Marquise (14) Ehrlers-Danlos Syndrome. Developed anorexia/restricting (lost 30# in 2 months). Hospitalized in [place] x 3 months. then partial admission in [place] ([place]). Now home with virtual services. Weight restored- emotionally not so good. Bullying (children and parents- [place]) Other issues with grandma dropping things off at doorstep. Pt. talking to gram either.Reginald is 11. doing ok. Ongoing additional symptoms: -ABDOMINAL PAIN: comes/goes (11/06). Not as bad as inpast. Ongoing (04/08). In past, numerous episodes resulting in ER visits (e.g, 01/2013) with no benefit- Didn't see GI (Yashira) because had clinicals. No diarrhea. Bowels more regular lately with more consistent schedule.Chronic RUQ pain- comes and goes. Less intense but still happens. Even while running - has to stop. No vomiting (like in past).Even happened at [place]. Has had extensive w/u and no clear etiology. Pain more likely with higher CHO diet.Previously had less sx when watched diet (on cruise). On a previous cruise, ate what she wanted and had pain. -DIZZINESS/VOMITING: better lately. saw Neuro (Dany) who suggested stop OCP (better).Thinks related to Dengue (2014-). Got in [place] (on cruise). -HEADACHES: hx of migraines. worse than usual due to stress.OToi in pastOccasional but not severe (2 per month). Hx migraines since age 4, (tx entire life).Have had bouts when severe in past. 2017- more often and more severe (6-9 migraine h/a per month). Had some neuro sx during h/a and trouble with names of people she knows. Much more word searching/finding. Word she picks sounds similar. Two episodes with exercise- couldn't do the combo move- could squat and stand but not jump and do butt kick (even with no h/a). Then had similar problem with arms. Has some mild unsteadiness- B12 normal in 2013. Folate normal in 2012 ROS:No fevers or chills.No SOB. Exercise related HERNANDEZ but not always.Had COVID (04/07). Mild.No CP or pressure. No recent bradycardia and syncope problems (see other section)No n/v. No vomiting. In past- RUQ to right back. Still has episodesNo muscle pains. No cramping.Right ankle OK with xfit (comes/goes). Osteochondritis- has had surgeries.No dizziness with standing in AM. Aryan Gabriel MD [address] [place] [address], [phone] , [facility] 01/13/2023 19:12:22 024 text/ht ml DiabetesReported bypatient.Labs:last Hemoglobin A1C: at goal (5.7 (05/10 and 11/06); was 6.3 (04/08); was 5.9 (02/04); was 5.8 (01/03); done 04/05; was 5.9 (12/03); was 5.8 (04/04); generally under 6.5%.); microalbumin/creatinine ratio: 05/10 normal (consistently below 10); serum creatinine: normal (consistently below 1.0); LDL at goal (78 (09/05); was60.2 (02/04); was 87 (01/03); was 81 (04/05);); Triglycerides at goal (80 (09/05); 49 (02/04); was 33 (01/03): was 44 (04/05); was 44 (04/04)); HDL at goal (53 (09/05); was 78 (02/04); was 72 (01/03); was 71 in 04/05;) Diabetes Medications:lispro (in pump.) Insulin pump settings:Insulin pump Yones 670; - See pump download- Renal/HTN Medications:No renal/HTN meds. Lipid Medications:No lipids meds. Review blood sugar:monitoring glucose 4 times per day; - See pump download- General pattern has been- occ lows and has some highs towards HS (late dinners). Lots of lows in AM (40-60) Insurance not covering pump before. discussed options for tandem models (upcoming MOBI and maybe tubeless). Associated Symptoms:no polyuria; no nocturia; no burning or discomfort with urination;foul odor or discharge(Ongoing- chronic itching and irritated- weekly fluconizole from [employer] (Marquise). 11/06 prophylactic diflucan. 05/10: No changes.); no polydypsia; no blurred vision (04/09.); 11/06: ongoing weekly fluconazole maintaining. 05/10: ongoing- doing well. Cardiac / Eye / Podiatric / Renal / Vascular Symptomsno coronary artery disease; no retinopathy (Dolores (04/09). due 01/06. Had seen Noel who found mole OS- Stable.); no numbness of feet; no kidney disease; no neuropathy Hypoglycemia Symptomsfrequency of hypoglycemic episodesweekly (05/10: early AM work-outs. Was having lots of lows. 20-30s x hours. workouts now on w/e and only once at 3AM. fewer lows. 1-2x per week in 50-70 range.WORK: [employer] ([employer])- 3 min commute.In past, has had seizure activity when over night if doesn't wake up to check.); Feels hungry when hypoglycemic (ravenous); Dizziness when hypoglycemic (like an airhead. spacy.); More overnight. Seizure during cruise in june 2017 Wakes at 2AM when lows usually occur.Notes:Notes increase in sugars after exercise- knows about increase in sensitivity post exerciseShe reports: BG up into 200-300 during intense exercise but will drop hours later with hypoglycemia.Was doing competitive X-fit and competing (successfully). Not competing during pandemic. In past: mostly has a high protein, high fat, minimal carb diet. Pt. exercises daily.50 grams of CHO per day. LABS:ACR= 7 (09/05):LIPIDS:05/10: 154/42/71/75 11/06: 178/53/89/76; 09/05: 171//20: 165/33/72/87 OTHER:ast/alt= 31/18 (09/05); OK in 01/03; was 41/23 (04/05); tsh/fT4= 2.31/1.1 (11/06); was 1.54/1.4 (09/05); tsh= 2.4 (01/03)vitD = 74.3 (2019) Has Medtronic 670g but hates it. Won't use sensor or autocorrect. Tests multiple times throughout day.Pt states setting are same from last visit14 days: 04/08: Having almost no lows but BG clearly much higher. She reports checking with other meters that don't upload to pump so those values are unknown.Have discussed using one meter but she really likes old One Touch. Discussed option of eversense- doesn't like since still have to wear sleeve transmitter over arm.Other options: paper logs. Many supplements: chronically D-histamine (stinging beverly, quercitin and vit C). Much less URIs. Aledo leaf acutely. Tried mixture of B vitamins and had severe hyperglycemia.In past, has used fluconazole for chronic vaginal candidiasis. Total Daily Dose: 50.4 (02/04)Basal/Bolus= 42/58 (04/08); was 39/61 (02/04) 14 days:Total Daily Dose :54.375% Basal : 19.625 (36%)% Bolus: 34.75 (64%)Total Carbs : 0 Basal: bolus= 40:60; was 39:61 (04/04); was 45:55.In past, pump download notes frequent overrides. OLD LABS: LDL=was 81 (04/04); was 69 (08/31)- was 103 (04/2015)HDL= was 71 (04/04); was 76 (08/31)- was 69 (05/02) ThyroidReported bypatient.Previous Evaluation:TSH: (1.54 (09/05); was 1.41 (02/04); was 2.4 (01/03); was 1.62 (04/05);); free T4: (1.4 (09/05); was 1.26 (02/04); ); TPO abs: (86 (+) in 9.12) Treatment:generic, dose: 75 mcg (daily); Takes in AM- coffee within 15 minutes. 1 hour before eats. T4 was started after post- thyroiditis. Constitutional:no cold intolerance; no heat intolerance; no weight loss; no weight gain; Wt= 173 (11/06); was 164 (04/08); was 165 (01/03) Pt. having different diet to support Marquise. And not exercising. Eyes:opthamologist: (Dolores.); no double vision; no dry eyes Neck:no difficulty swallowing; no voice changes;masses(Still there- no change. can be tender if gets inflamed. not so bad.); Slightly smaller and less tender since bx. Presumed thyroglossal duct cyst- presented with sudden pain in neck- went for u/s which showed 1.4x1.6x1.5 cm cystic structure in left submandibular region. Hasn't gone for surgery. No episodes of pain - usually after URI. Takes NSAIDs and feels better. Heart:no rapid heart rate; no palpitations; no chest pain; no tightness or pressure; No recent episodes No recent darcie episodes or syncope as in past- largely post-exercise. In 2017 had slow rate in 40s after half-marathon (2:12) with at least 2 syncopal bouts and n/v. Also with terrible abdominal pain. No CP. Has been to [facility] and had right heart cath which showed nothing. Never got to have measurements post-exercise. GI:no constipation; no diarrhea :abnormal menstrual periods(but having something every 5-6 weeks.); Periods normal lately. Had been regular-ricardo. Since has gained weight (body fat around 31%). Discussed issue of body fat and menstrual function. Her description of fat jiggling . 01/2019: Right ovarian cyst- put on OCP- developed superficial VT in right thigh. Off OCP. No hot flashes with return of menses Neurological:no tremor; no anxiety (except as per family.); no insomniaNotes:THYROGLOSSAL DUCT CYST: Originally found due to pain in mid/left neck (January 2016) Was painful swallowing- solids and liquids. Had increasing hoarseness and seemed visible. U/S found small right nodule but pt. pointed out tenderness towards left and abnormality was identified. Original u/s measured area in left submandibular area described as having central septation. 1.4x1.6x1.5. Sent for CT which showed midline complex cystic nodule above the hyoid with conclusion that it was a thyroglossal duct cyst. CT report (03/01) describes this as: Fluid density structure from upper left thyroid strap muscle through the thyrohyoid membrane deep to the hyoid bone in the midline, suggestive of a thyroglossal duct cyst. measurements were 1.3 (t)x1.3 (AP) by 1.5 (sag). Question has been raised about connection between thyroglossal duct cyst and near-syncope. -EXERCISE INDUCED BRADYCARDIA AND NEAR-SYNCOPE(01/2016):Hardly any problems as long as she hyperventilates post-exercise. Otherwise, gets blue lips. Originally, happened during half marathon (not her first. felt poorly by mile 3). At end, was very dizzy with abdominal pain and vomiting. Fainted at home. BG was 94.Previous syncopal episode - 09/2015- attributed to dehydration (shoveling rocks and went for run and hot). Pulse was in 40s- weak.Saw Kelby (cardiology): Bradycardia resolved. Normal stress echo.Question of whether thyroglossal duct cyst might have caused pressure like a carotid massage as cause of bradycardia. Found nothing cardiac otherwise. Fitbit has shown HR in 30-40s when has sx and thyroglossal cyst seems larger and more inflamed. This happens every 2-3 weeks- gets bigger and painful- easy to see then. 04/08: Uptick in rhinitis sx (allergies)- also notices increase in neck mass.' OLD LABS:TSH= was 3.68 (04/04); was 1.99 (05/04); was 1.98 (08/31)_ was 1.11 (2014) was 0.73 (10/28)- was 0.9 (11/27)- was 1.8 (03/29)- was 9.28 (11/26) following post- thyroiditis (2011) fT4= was 1.12 (04/04); was 1.12 (05/04); was 1.11 (08/31)- was 1.07 (10/2013)- was 1.26 (11/27) PCP is Shelley. Follow-Up: thyroid function tests abnormalFollow-Up: type 1 diabetes mellitus uncontrolledFollow-Up: hypothyroidismPT had biopsy on 06/06PT has Pump/medtronic will download to chart Thyroglossal duct cyst F/U T1DM on pump.PT has Pump will download to chart PAST MEDICAL Hx (updated):Mom reports on hx of Dengue Fever in 06/2015.01/30- Recent problem during half-marathon- blue lips and brief syncopal episodes x 2 (about). HR (from mom) was in the 40s.08/01- SEIZURE on cruise due to low sugar.10/02- Corwin (cardiology) did cardiopulmonary ET (CPET)- retaining CO2. respiratory rate dropped. [facility] repeated and did right heart cath - told tucker was fine but didn't get to have measurements done in post-exercise phase (stuck in wedge) and she typically gets her sx after exercise. Didn't even get to max HR (170 x 10 seconds)Fluconazole weekly for chronic yeast 11/06: no changes.05/10 No changes. SOCIAL Hx (updated):09/05: Estranged from mom/dad and Denita. Wasn't included in Denita's wedding republican (changed date and pt already had plans for cruise).Pt feels mom and pain meds have been an issue. Tried to set boundaries and difficult interaction. 04/08: In contact with Melva and Ladi. (Ancestry showed Ladi has different dad).11/06: Exercise- when I can ; stress from daughter's eating disorder. Pt still working05/10: TIS- running. Xfit and weight lifting. FAMILY/ KIDS:Marquise (ryan 2007)- EDS: Pain/palliative. has Rheum. all out of [place] Children.Reginald (2012): Marquise (13) Ehrlers-Danlos Syndrome. Developed anorexia/restricting (lost 30# in 2 months). Hospitalized in [place] x 3 months. then partial admission in [place] ([place]). Now home with [employer] services. Weight restored- emotionally not so good. Bullying (children and parents- [place]) Other issues with grandma dropping things off at doorstep. Pt. talking to gram either.05/10: not so good- lost weight. anorexic behaviors last few months. has great team and continuing.9th grader. Reginald is 10. doing ok.05/10: doing OK. Occ contact with Ladi.Sister Melva- her works with pt's .Very little contact since 07/07. Ongoing additional symptoms: -ABDOMINAL PAIN: comes/goes (05/10 and 11/06). Not as bad as inpast. Ongoing (04/08). In past, numerous episodes resulting in ER visits (e.g, 01/2013) with no benefit- Didn't see GI (Ac) because had clinicals. No diarrhea. Bowels more regular lately with more consistent schedule.Chronic RUQ pain- comes and goes. Less intense but still happens. Even while running - has to stop. No vomiting (like in past).Even happened at [place]. Has had extensive w/u and no clear etiology. Pain more likely with higher CHO diet.Previously had less sx when watched diet (on cruise). On a previous cruise, ate what she wanted and had pain. -DIZZINESS/VOMITING: Not lately (05/10) better lately. saw Neuro (Dany) who suggested stop OCP (better).Thinks related to Dengue (2014-). Got in [place] (on cruise). -HEADACHES: hx of migraines. worse than usual due to stress.05/10: still there.Dany in pastOccasional but not severe (2 per month). Hx migraines since age 4, (tx entire life).Have had bouts when severe in past. 2016- more often and more severe (6-9 migraine h/a per month). Had some neuro sx during h/a and trouble with names of people she knows. Much more word searching/finding. Word she picks sounds similar. Two episodes with exercise- couldn't do the combo move- could squat and stand but not jump and do butt kick (even with no h/a). Then had similar problem with arms. Has some mild unsteadiness- B12 normal in 2012. Folate normal in 2012 ROS:No fevers or chills.No SOB.Had COVID (04/07). Mild.No CP or pressure. No recent bradycardia and syncope problems (see other section)No n/v. No vomiting. Chronic RUQ to right back. Still has episodesNo muscle pains. No cramping.05/10: Duputryens- more with cross-fit.hand therapy vs. hand surgeon. can be very painful. less gymnastics/ using gloves. Right ankle OK with xfit (comes/goes). Osteochondritis- has had surgeries. No dizziness with standing in AM. Aryan Gabriel MD [address] [place] [address], [phone] , [facility] 06/20/2023 15:24:39 024 text/ht ml DiabetesReported bypatient.Labs:last Hemoglobin A1C: at goal (6.3% (12/08); was 5.7 (05/10 and 11/06); was 6.3 (04/08); was 5.9 (02/04); was 5.8 (01/03); done 04/05; was 5.9 (12/03); was 5.8 (04/04); generally under 6.5%.); microalbumin/creatinine ratio: 05/10 normal (consistently below 10); serum creatinine: normal (consistently below 1.0) Diabetes Medications:lispro (in pump.) Insulin pump settings:Insulin pump model; insulin pump make; - See pump download- [employer] mobile and [employer] 7. very pleased. Renal/HTN Medications:No renal/HTN meds. Lipid Medications:No lipids meds. Associated Symptoms:no polyuria; no nocturia; no burning or discomfort with urination; no foul odor or discharge;foul odor or discharge(Ongoing- chronic itching and irritated- weekly fluconizole from [employer] (Marquise). 11/06 prophylactic diflucan. 05/10: No changes.); no polydypsia; no blurred vision (04/09.); 11/06: ongoing weekly fluconazole maintaining. 05/10: ongoing- weekly fluconazole. Cardiac / Eye / Podiatric / Renal / Vascular Symptomsno coronary artery disease; no retinopathy (Dolores (04/09). due 01/06. Had seen Noel who found mole OS- Stable.); no numbness of feet; no kidney disease; no neuropathy Hypoglycemia Symptomsfrequency of hypoglycemic episodesinfrequently (12/08: can happen based on insertion sites. Not sure if got full dose so re-doses.In past, has had seizure activity when over night if doesn't wake up to check.); Feels hungry when hypoglycemic (ravenous); Dizziness when hypoglycemic (like an airhead. spacy. but only if very low.); 12/08: much fewer lows with Mobi/Dexcom. More overnight. Seizure during cruise in june 2017 Wakes at 2AM when lows usually occur.Notes:Notes increase in sugars after exercise- knows about increase in sensitivity post exerciseShe reports: BG up into 200-300 during intense exercise but will drop hours later with hypoglycemia.Was doing competitive X-fit and competing (successfully). Not competing during pandemic. In past: mostly has a high protein, high fat, minimal carb diet. Pt. exercises daily.50 grams of CHO per day. LABS:ACR= 7 (09/05):LIPIDS:12/08: 163/50/72/81; 05/10: 154/42/71/75 11/06: 178/53/89/76; 09/05: 171//20: 165/33/72/87 OTHER:ast/alt= 31/ (09/05); OK in 01/03; was 41/23 (04/05); tsh/fT4= 2.31/1.1 (11/06); was 1.54/1.4 (09/05); tsh= 2.4 (01/03)vitD = 74.3 (2019) Used to have Medtronic 670g but hates it. Won't use sensor or autocorrect. Tests multiple times throughout day.Pt states setting are same from last visit14 days: 04/08: Having almost no lows but BG clearly much higher. She reports checking with other meters that don't upload to pump so those values are unknown.Have discussed using one meter but she really likes old One Touch. Discussed option of eversense- doesn't like since still have to wear sleeve transmitter over arm.Other options: paper logs. Many supplements: chronically D-histamine (stinging beverly, quercitin and vit C). Much less URIs. Aledo leaf acutely. Tried mixture of B vitamins and had severe hyperglycemia.In past, has used fluconazole for chronic vaginal candidiasis. Total Daily Dose: 50.4 (02/04)Basal/Bolus= 42/58 (04/08); was 39/61 (02/04) 14 days:Total Daily Dose :54.375% Basal : 19.625 (36%)% Bolus: 34.75 (64%)Total Carbs : 0 Basal: bolus= 40:60; was 39:61 (04/04); was 45:55.In past, pump download notes frequent overrides. OLD LABS: LDL=was 81 (04/04); was 69 (08/31)- was 103 (04/2015)HDL= was 71 (04/04); was 76 (08/31)- was 69 (05/02) ThyroidReported bypatient.Previous Evaluation:TSH: (2.24 (12/08); was 1.54 (09/05); was 1.41 (02/04); was 2.4 (01/03); was 1.62 (04/05);); free T4: (1.4 (09/05); was 1.26 (02/04); ); TPO abs: (86 (+) in .) Treatment:generic, dose: 75 mcg, frequency: (daily); Takes in AM- coffee within 15 minutes. 1 hour before eats. T4 was started after post- thyroiditis. Constitutional:no cold intolerance; no heat intolerance; WEIGHT (home)= 165 (12/08); was 173 (11/06); was 164 (04/08); was 165 (01/03) Pt. having different diet to support [place]. And not exercising. PO intake less with thyroglossal cyst. Often going more for liquids. Eyes:opthamologist: (Dolores.); no double vision; no dry eyes Neck:difficulty swallowing;voice changes(raspy);masses(Can vary in size- consistently bigger than in past but varies. Some dysphagia.); Thyroglossal duct cyst- now has pain and ongoing dysphagia. Originally u/s showed 1.4x1.6x1.5 cm cystic structure in left submandibular region. Hasn't gone for surgery. Heart:no rapid heart rate; no palpitations; no fluttering; no chest pain; no tightness or pressure; No recent darcie episodes or syncope as in past- largely post-exercise. In 2017 had slow rate in 40s after half-marathon (2:12) with at least 2 syncopal bouts and n/v. Also with terrible abdominal pain. No CP. Has been to [facility] and had right heart cath which showed nothing. Never got to have measurements post-exercise. GI:no constipation; no diarrhea :post-menopausal; Periods normal lately. Had been regular-ricardo. Since has gained weight (body fat around 31%). Discussed issue of body fat and menstrual function. Her description of fat jiggling . 01/2019: Right ovarian cyst- put on OCP- developed superficial VT in right thigh. Off OCP. No hot flashes with return of menses Neurological:no tremor; no anxiety (except as per family.); no insomnia (except family stresses.)Notes:THYROGLOSSAL DUCT CYST: Originally found due to pain in mid/left neck (January 2016) Was painful swallowing- solids and liquids. Had increasing hoarseness and seemed visible. U/S found small right nodule but pt. pointed out tenderness towards left and abnormality was identified. Original u/s measured area in left submandibular area described as having central septation. 1.4x1.6x1.5. Sent for CT which showed midline complex cystic nodule above the hyoid with conclusion that it was a thyroglossal duct cyst. CT report (03/01) describes this as: Fluid density structure from upper left thyroid strap muscle through the thyrohyoid membrane deep to the hyoid bone in the midline, suggestive of a thyroglossal duct cyst. measurements were 1.3 (t)x1.3 (AP) by 1.5 (sag). Question has been raised about connection between thyroglossal duct cyst and near-syncope. -EXERCISE INDUCED BRADYCARDIA AND NEAR-SYNCOPE(01/2016):Hardly any problems as long as she hyperventilates post-exercise. Otherwise, gets blue lips. Originally, happened during half marathon (not her first. felt poorly by mile 3). At end, was very dizzy with abdominal pain and vomiting. Fainted at home. BG was 94.Previous syncopal episode - 09/2015- attributed to dehydration (shoveling rocks and went for run and hot). Pulse was in 40s- weak.Saw Kelby (cardiology): Bradycardia resolved. Normal stress echo. Question of whether thyroglossal duct cyst might have caused pressure like a carotid massage as cause of bradycardia. Found nothing cardiac otherwise. Fitbit has shown HR in 30-40s when has sx and thyroglossal cyst seems larger and more inflamed. This happens every 2-3 weeks- gets bigger and painful- easy to see then. 04/08: Uptick in rhinitis sx (allergies)- also notices increase in neck mass.' OLD LABS:TSH= was 3.68 (04/04); was 1.99 (05/04); was 1.98 (08/31)_ was 1.11 (2014) was 0.73 (10/28)- was 0.9 (11/27)- was 1.8 (03/29)- was 9.28 (11/26) following post- thyroiditis (2011) fT4= was 1.12 (04/04); was 1.12 (05/04); was 1.11 (08/31)- was 1.07 (10/2013)- was 1.26 (11/27) PCP is Shelley.Follow-Up: thyroid function tests abnormalFollow-Up: type 1 diabetes mellitus uncontrolledFollow-Up: hypothyroidismLV on 05/10Last labs on 12/08 A1C-6.3LAst Thyroid US on 10/05LAst biopsy on 06/06PT had mobi pump and CGM/Dexcom 7 will add to chartPT had surgical consult with Dr. Vanessa on 11/27/23: Thyroglossal duct cystLabs cued F/U T1DM on pump.PT has Pump will download to chart PAST MEDICAL Hx (updated):Mom reports on hx of Dengue Fever in 06/2015.01/30- Recent problem during half-marathon- blue lips and brief syncopal episodes x 2 (about). HR (from mom) was in the 40s.08/01- SEIZURE on cruise due to low sugar.10/02- Corwin (cardiology) did cardiopulmonary ET (CPET)- retaining CO2. respiratory rate dropped. [facility] repeated and did right heart cath - told tucker was fine but didn't get to have measurements done in post-exercise phase (stuck in wedge) and she typically gets her sx after exercise. Didn't even get to max HR (170 x 10 seconds)Fluconazole weekly for chronic yeast 11/06: no changes.12/08: Will be scheduling in next few months. SOCIAL Hx (updated):09/05: Estranged from mom/dad and Denita. Wasn't included in Denita's wedding republican (changed date and pt already had plans for cruise).Pt feels mom and pain meds have been an issue. Tried to set boundaries and difficult interaction. 04/08: In contact with Melva and Ladi. (Ancestry showed Ladi has different dad).11/06: Exercise- when I can ; stress from daughter's eating disorder. Pt still working05/10: TIS- running. 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 Not competitive.12/08: traveling to [place] [place] for [employer]Miguel Ángel/Edy/Adi. FAMILY/ KIDS:Marquise (b 2007)- EDS: Pain/palliative. has Rheum. all out of CT Children.Reginald (2011): Marquise (14) Ehrlers-Danlos Syndrome. Developed anorexia/restricting (lost 30# in 2 months). Hospitalized in [place] x 3 months. then partial admission in [place] ([place]). Now home with [employer] services. Weight restored- emotionally not so good. Bullying (children and parents- [place]) Other issues with grandma dropping things off at doorstep. Pt. talking to gram either.05/10: not so good- lost weight. anorexic behaviors last few months. has great team and continuing.9th grader. Marquise (15)- norm. doing great. Ongoing struggles. weight stable. Reginald is 12 (12/08). doing ok. Occ contact with Ladi (texts).Sister Melva- her works with pt's .Very little contact since 07/07. Ongoing additional symptoms: -ABDOMINAL PAIN: comes/goes (12/08 and 05/10 and 11/06). Not as bad as in past. Ongoing (04/08). In past, numerous episodes resulting in ER visits (e.g, 01/2013) with no benefit- Didn't see GI (Ac) because had clinicals. No diarrhea. Bowels more regular lately with more consistent schedule.Chronic RUQ pain- comes and goes. Less intense but still happens. Even while running - has to stop. No vomiting (like in past).Even happened at [place]. Has had extensive w/u and no clear etiology. Pain more likely with higher CHO diet.Previously had less sx when watched diet (on cruise). On a previous cruise, ate what she wanted and had pain. -DIZZINESS/VOMITING: Not lately (05/10) better lately. saw Neuro (Dany) who suggested stop OCP (better).Thinks related to Dengue (2014-). Got in [place] (on [place]). -HEADACHES: hx of migraines. worse than usual due to stress.12/08: Jesse in pastOccasional but not severe (2 per month). Hx migraines since age 4, (tx entire life).Have had bouts when severe in past. 2017- more often and more severe (6-9 migraine h/a per month). Had some neuro sx during h/a and trouble with names of people she knows. Much more word searching/finding. Word she picks sounds similar. Two episodes with exercise- couldn't do the combo move- could squat and stand but not jump and do butt kick (even with no h/a). Then had similar problem with arms. Has some mild unsteadiness- B12 normal in 2012. Folate normal in 2012 ROS:No fevers or chills.No SOB.Had COVID (04/07). Mild.No CP or pressure. No recent bradycardia and syncope problems (see other section)No n/v. No vomiting. Chronic RUQ to right back. Still has episodesNo muscle pains. No cramping.05/10: Duputryens- more with cross-fit.hand therapy vs. hand surgeon. can be very painful. less gymnastics/ using gloves. Right ankle OK with xfit (comes/goes). Osteochondritis- has had surgeries. No dizziness with standing in AM. Aryan Gabriel MD [address] [place] [address], [phone] , [facility] 12/15/2023 18:37:34 025 text/ht ml DiabetesReported bypatient.Labs:last Hemoglobin A1C: at goal (6.2 (07/09); was 6.3% (12/08); was 5.7 (05/10 and 11/06); was 6.3 (04/08); was 5.9 (02/04); was 5.8 (01/03); done 04/05; was 5.9 (12/03); was 5.8 (04/04); generally under 6.5%.); microalbumin/creatinine ratio: 05/10 normal (consistently below 10); serum creatinine: normal (consistently below 1.0) Diabetes Medications:Short-acting insulins: Humalog Insulin pump settings:Insulin pump modelMOBI; insulin pump make; - See pump download- [employer] mobile and [employer] 7. Very pleased. Renal/Hypertension (HTN) MedsNo renal/HTN meds. Lipid Medications:No lipids meds. Associated Symptoms:no polyuria; no nocturia; no burning or discomfort with urination;foul odor or discharge(07/09: Ongoing- chronic itching and irritated- weekly fluconizole (100; was 150); Gets from [employer] (Marquise). 11/06 prophylactic diflucan.); no polydypsia; no blurred vision (Dolores in 06/08. Nevus OS- being followed.) Cardiac / Eye / Podiatric / Renal / Vascular Symptomsno coronary artery disease; no retinopathy ([place] (06/08). NevusOS- Stable.); no numbness of feet; no kidney disease; no neuropathy Hypoglycemia Symptomsfrequency of hypoglycemic episodesweekly (07/09: weekly; In past, has had seizure activity when over night if doesn't wake up to check.); Feels hungry when hypoglycemic (ravenous); Dizziness when hypoglycemic (like an airhead. spacy. but only if very low.); 07/09: CGM alerts when not clinically low. (location) 12/08: much fewer lows with Mobi/Dexcom. More overnight. Seizure during cruise in june 2017 Wakes at 2AM when lows usually occur.Notes:Notes increase in sugars after exercise- knows about increase in sensitivity post exerciseShe reports: BG up into 200-300 during intense exercise but will drop hours later with hypoglycemia.Was doing competitive X-fit and competing (successfully). Not competing during pandemic. In past: mostly has a high protein, high fat, minimal carb diet. Pt. exercises daily.50 grams of CHO per day. LABS:ACR= BDL (07/09) was 7 (09/05):LIPIDS:No meds07/09: 144/55/67/66 12/08: 163/50/72/81; 05/10: 154/42/71/75 11/06: 178/53/89/76; 09/05: 171//20: 165/33/72/87 OTHER: Vit D= 125 (07/09); 2K on top of MVI. (winter only)Ca= 9.8 (07/09) ast/alt= 31/18 (09/05); OK in 01/03; was 41/23 (04/05); tsh/fT4= 2.31/1.1 (11/06); was 1.54/1.4 (09/05); tsh= 2.4 (01/03)vitD = 74.3 (2019) Hated Medtronic 670g 04/08: Having almost no lows but BG clearly much higher. She reports checking with other meters that don't upload to pump so those values are unknown.Have discussed using one meter but she really likes old One Touch. Discussed option of eversense- doesn't like since still have to wear sleeve transmitter over arm.Other options: paper logs. Many supplements: chronically D-histamine (stinging beverly, quercitin and vit C). Much less URIs. Aledo leaf acutely. Tried mixture of B vitamins and had severe hyperglycemia.In past, has used fluconazole for chronic vaginal candidiasis. Total Daily Dose: 50.4 (02/04)Basal/Bolus= 42/58 (04/08); was 39/61 (02/04) 14 days:Total Daily Dose :54.375% Basal : 19.625 (36%)% Bolus: 34.75 (64%)Total Carbs : 0 Basal: bolus= 40:60; was 39:61 (04/04); was 45:55.In past, pump download notes frequent overrides. OLD LABS: LDL=was 81 (04/04); was 69 (08/31)- was 103 (04/2015)HDL= was 71 (04/04); was 76 (08/31)- was 69 (05/02) ThyroidReported bypatient.Previous Evaluation:TSH: (3.15 (07/09) was 2.24 (12/08); was 1.54 (09/05); was 1.41 (02/04); was 2.4 (01/03); was 1.62 (04/05);); free T4: (1.12 (07/09); was 1.4 (09/05); was 1.26 (02/04); ); TPO abs: (86 (+) in .12) Treatment:generic, dose: 75 mcg, frequency: (daily); Takes in AM- coffee within 15 minutes. 1 hour before eats. T4 was started after post- thyroiditis. Constitutional:no cold intolerance; no heat intolerance; WEIGHT (home)= 164 (07/09); was 165 (12/08); was 173 (11/06); was 164 (04/08); was 165 (01/03) Pt. having different diet to support [place]. And not exercising. PO intake less with thyroglossal cyst. Often going more for liquids. Eyes:opthamologist: ([place].); no double vision; no dry eyes Neck:difficulty swallowing;voice changes(raspy);masses(Can vary in size- consistently bigger than in past but varies. Some dysphagia.); Thyroglossal duct cyst- now has pain and ongoing dysphagia. Planning for surgery 10/08 (Otf) Originally u/s showed 1.4x1.6x1.5 cm cystic structure in left submandibular region. Hasn't gone for surgery. Heart:no rapid heart rate; no palpitations; no fluttering; no chest pain; no tightness or pressure; No recent darcie episodes or syncope as in past- largely post-exercise. In 2017 had slow rate in 40s after half-marathon (2:12) with at least 2 syncopal bouts and n/v. Also with terrible abdominal pain. No CP. Has been to [facility] and had right heart cath which showed nothing. Never got to have measurements post-exercise. GI:no constipation; no diarrhea :normal menstrual periods; Periods normal lately. Had been regular-ricardo. Since has gained weight (body fat around 31%). Discussed issue of body fat and menstrual function. Her description of fat jiggling . 01/2019: Right ovarian cyst- put on OCP- developed superficial VT in right thigh. Off OCP. No hot flashes with return of menses Neurological:no tremor; no anxiety (except as per family.); not jittery/nervous; no insomnia (except family stresses.)Notes:THYROGLOSSAL DUCT CYST: Originally found due to pain in mid/left neck (January 2016) Was painful swallowing- solids and liquids. Had increasing hoarseness and seemed visible. U/S found small right nodule but pt. pointed out tenderness towards left and abnormality was identified. Original u/s measured area in left submandibular area described as having central septation. 1.4x1.6x1.5. Sent for CT which showed midline complex cystic nodule above the hyoid with conclusion that it was a thyroglossal duct cyst. CT report (03/01) describes this as: Fluid density structure from upper left thyroid strap muscle through the thyrohyoid membrane deep to the hyoid bone in the midline, suggestive of a thyroglossal duct cyst. measurements were 1.3 (t)x1.3 (AP) by 1.5 (sag). Question has been raised about connection between thyroglossal duct cyst and near-syncope. -EXERCISE INDUCED BRADYCARDIA AND NEAR-SYNCOPE(01/2016):Hardly any problems as long as she hyperventilates post-exercise. Otherwise, gets blue lips. Originally, happened during half marathon (not her first. felt poorly by mile 3). At end, was very dizzy with abdominal pain and vomiting. Fainted at home. BG was 94.Previous syncopal episode - 09/2015- attributed to dehydration (shoveling rocks and went for run and hot). Pulse was in 40s- weak.Saw Kelby (cardiology): Bradycardia resolved. Normal stress echo. Question of whether thyroglossal duct cyst might have caused pressure like a carotid massage as cause of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
--- NOTE | 2024-08-25 08:41 | MHC.PC.OV ---
Intake Visit Reasons: follow up Allergies acetaminophen [Vicodin] Allergy (Unknown, Verified 07/23/21 12:01) hives hydrocodone [HYDROCODONE] Allergy (Unknown, Unverified 07/23/21 12:01) HIVES latex [LATEX] Allergy (Unknown, Unverified 07/23/21 12:01) HIVES lisinopril [LISINOPRIL] Allergy (Unknown, Unverified 07/23/21 12:01) ANGIOEDEMA brandon [BRANDON] Allergy (Unknown, Unverified 07/23/21 12:01) UNKNOWN shrimp [SHRIMP] Allergy (Unknown, Unverified 07/23/21 12:01) HIVES Hydrocodone-Acetaminophen Allergy (Mild, Uncoded 07/23/21 12:01) Unknown latex Allergy (Unknown, Uncoded 07/23/21 12:01) hives OYSTERS Allergy (Unknown, Uncoded 07/23/21 12:01) HIVES Medication List - Last Reconciled 08/25/24 by Rich Rosa, PROGRAM RESEARCH SPECIALIST- bupropion HCl XL 300 mg PO QAM 30 days bupropion HCl XL 150 mg PO QAM 90 days nlwzfdlnxk-rwcxveqndzonc-niku 50-300-40 mg (Fioricet) 1 cap PO DAILY PRN 30 days cephalexin 500 mg PO QID dextroamphetamine-amphetamine 5 mg (Adderall) 5 mg PO BID 30 days doxycycline monohydrate 100 mg PO BID 30 days fluconazole 100 mg PO DAILY 30 days glucagon HCl (Glucagon (HCl) Emergency Kit) 1 mg subcut Q20M PRN 90 days levothyroxine 75 mcg PO DAILY lorazepam 0.5 mg PO BID PRN 30 days lorazepam (Ativan) 0.5 mg PO BEDTIME PRN 30 days naproxen 500 mg PO BID PRN oseltamivir (Tamiflu) 75 mg PO Q12H 5 days HPI follow up HPI Details 38 y/o F with PMHX of R Ovarian cyst presents today for c/o low back pain and lower abd pressure for the last 3-4 weeks Assoc sx include abd fullness, bloating & intermittent nausea w/o vomiting Normal periods Denies chance of , fever, chills. Normal bowel and bladder. Has tried tums, APAP, heating pad, diet changes without relief. Hx of normal PAPs, overdue, last one around Plan: US Transvaginal and Abd to eval ovaries CA 125 CRP Recommend S[employer] f/u [facility] Medical History Persistent thyroglossal duct cyst Hypothyroid Diabetes type 1, controlled Vitamin D deficiency Social History Advance Directives Date on File: 12/22/19 Questionnaire Thrive Questionnaire Date Thrive assessed: 04/29/24 Physical exam (Primary Care) Thrive Assessment: Date of Thrive Assessment Date Thrive assessed 04/29/24 08/25/24 08:07 Telehealth Telehealth Telehealth Platform: MyCheck Location of provider rendering services: practice address Location of patient: address on file Patient Identification confirmed using: Name, : Yes Telehealth method: video Patient verbally consented to treatment: Yes Patient verbally consented to billing insurance company: Yes Patient informed of any privacy concerns related to visit: Yes Minutes spent on Phone/Video with Pt.: 13 Coding Level of Care Code Tele Est Pt Level 3 (39882) Diagnoses Pelvic pain R10.2 Assessment & Plan Assessment & Plan (1) Pelvic pain: Code(s): R10.2 - Pelvic and perineal pain Category: Medical Plan . Orders: Orders CA-125 Today R10.2 - Pelvic and perineal pain C Reactive Protein Today R10.2 - Pelvic and perineal pain US pelvic and transvaginal Today R10.2 - Pelvic and perineal pain Complete Blood Count Auto Diff Today R10.2 - Pelvic and perineal pain Comprehensive [place]. Panel Fast Today R10.2 - Pelvic and perineal pain
== END 2024-08-25 08:26 | disposition home or self-care (01) ==
PROVIDERS: PCP Nurse Practitioner Family; Visit Provider Nurse Practitioner Family
DX: R10.2 Pelvic and perineal pain (principal)

== ENCOUNTER → 2024-08-25 08:08 | Outpatient (BNVA) | payer OTHER, SELFPAY | PROVIDERS: PCP Nurse Practitioner Family; Visit Provider Nurse Practitioner Family ==

== ENCOUNTER 2024-08-25 12:32 | Outpatient (REF) | payer OTHER, SELFPAY ==
[2024-08-25 14:29] LABS: MANUAL DIFF FLAG NO
[2024-08-25 14:33] LABS: Basophils Percent Auto 0.5 % (0-2); Eosinophils Absolute Auto 0.2 X10*3/uL (0.0-0.4); Eosinophils Percent Auto 2.2 % (0-4); Hemoglobin 14.7 g/dl (12.0-16.0); Imm Gran Abs Auto 0.03 X10*3/uL (0.00-0.03); Imm Gran Pct Auto 0.4 % (0.0-0.4); Lymphocytes Percent Auto 26.3 % (20-40); Mean Corpuscular HGB Conc 34.2 g/dl (31.0-35.0); Mean Corpuscular Hemoglobin 29.6 pg (27.0-33.0); Mean Corpuscular Volume 86.7 fL (80.0-98.0); Mean Platelet Volume 9.9 fL (9.4-12.3); Monocytes Absolute Auto 0.4 X10*3/uL (0.1-1.2); Monocytes Percent Auto 5.4 % (2-11); Neutrophils Absolute Auto 4.8 x10*3/uL (2.0-8.3); Neutrophils Percent Auto 65.2 % (45-73); Platelet Count 235 X10*3/uL (160-400); Red Blood Count 4.96 X10*6/uL (4.20-5.50); Red Cell Distribution Width 12.7 % (11.0-16.0); White Blood Count 7.4 X10*3/uL (4.8-10.8)
[2024-08-25 14:46] LABS: Alanine Aminotransferase 20 U/L (0-31); Albumin Level 4.7 g/dL (3.5-5.0); Alkaline Phosphatase 62 U/L (39-117); Anion Gap 10 (12-20); Aspartate Amino Transferase 24 U/L (5-31); Bilirubin Total 0.5 mg/dL (0.0-1.0); Blood Urea Nitrogen 16 mg/dL (9-16); C Reactive Protein 0.22 mg/dL (< or = 0.50); Calcium 9.5 mg/dL (8.4-10.2); Carbon Dioxide 29 mmol/L (22-29); Chloride 101 mmol/L (96-108); Estimated Glomerular Filt Rate > 60; Glucose Fasting 129 mg/dL (60-99); Potassium 4.2 mmol/L (3.3-5.1); Sodium 136 mmol/L (135-145); Total Protein 6.9 g/dL (6.5-8.0)
[2024-08-26 10:48] LABS: CA-125 17 U/mL (<35)
== END 2024-08-25 12:33 | disposition home or self-care (01) ==
LOC: HO.WFDLDS 12:32
PROVIDERS: Visit Provider Nurse Practitioner Family
DX: R10.2 Pelvic and perineal pain (principal)
CPT/HCPCS: 36415; 80053; 85025; 86140; 86304

== ENCOUNTER 2024-08-26 10:40 | Outpatient (REF) | payer OTHER, SELFPAY ==
--- NOTE | ~2024-08-26 | US_ITS ---
EXAMINATION: US PELVIS CLINICAL INFORMATION: Pelvic and perineal pain, palpable lump in the right groin COMPARISON: February 12, 2019 TECHNIQUE: Ultrasound of the pelvis is performed using both transabdominal and transvaginal transducers along with Doppler. Transvaginal imaging is performed due to inadequate visualization transabdominally. FINDINGS: In the region of palpable lump in the right groin, there are multiple normal architecture and sized lymph nodes. Uterus: The uterus is anteverted and measures 12.1 x 4.7 x 5.3 cm. Nabothian cysts are evident in the cervix. The endometrial stripe thickness is 11 mm. There is a heterogeneous mass in the anterior left uterine myometrium measuring 3.1 x 2.5 x 3.6 cm, not documented on the prior exam. The endometrial stripe is bowed posteriorly. Adnexa: Both ovaries are visualized. There is normal color flow to the adnexa. There is no ovarian torsion. There is trace free fluid in the cul-de-sac. Right ovary measures 2.6 x 1.3 x 2.1 cm cm. Left ovary measures 3.4 x 1.5 x 2.1 cm cm. US/US pelvic and transvaginal IMPRESSION: 3.6 cm Uterine leiomyoma, likely intramural, possibly extending submucosal, demonstrate mass effect on the endometrial stripe. Electronically signed by: Piero Pena MD 08/26/2024 12:21 PM EDT
--- OUTSIDE RECORDS SUMMARY | 2024-08-26 12:28 | XMS_ITS | Data Portability ---
Author Organization [facility], , [facility] Address [address] [place] [address] Care Team Providers Care Slag Dumper Name Role Phone SERENITY VAZQUEZ OTHER ARYAN GABRIEL OTHER DENIZ LAWRENCE Primary Care Provider [phone] Assessment Encounter Date Assessment Date Assessment LastModified [...] 01/03: Ask that she bring meter to [facility] next time in area for download. 07/05: [...] 01/03: Ask that she bring meter to [facility] next time in area for download. 07/05: [...] 01/03: Ask that she bring meter to [facility] next time in area for download. 07/05: [...] 01/03: Ask that she bring meter to [facility] next time in area for download. 07/05: [...] HbA1c (hemog lobin A1c), blood 2024 025 [facility], [address] [place] [address], [id number], 07/02/2024 08:39:46 CMP, serum or plasma 2024 025 [facility], [address] [place] [address], [place], [address], 07/02/2024 08:39:46 lipid panel, serum 2024 025 [facility], [address] [place] [address], [id number], 07/02/2024 08:39:46 microa lbumin /creat inine, ratio panel, urine 2024 025 [facility], [address] [place] [address], [id number], 07/02/2024 08:39:46 TSH, serum or plasma 2024 025 [facility], [address] [place] [address], [address], 07/02/2024 08:39:46 T4, free, serum 2024 025 [facility], [address] [place] [address], [address], 07/02/2024 08:39:46 HbA1c (hemog lobin A1c), blood 2023 024 [facility], [address] [place] [address], [address], 12/11/2023 17:15:43 CMP, serum or plasma 2023 024 [facility], [address] [place] [address], [address], 12/11/2023 17:15:43 lipid panel, serum 2023 024 [facility], [address] [place] [address], [address], 12/11/2023 17:15:43 microa lbumin /creat inine, ratio panel, urine 2023 024 [facility], [address] [place] [address], [address], 12/11/2023 17:15:43 TSH, serum or plasma 2023 024 [facility], [address] [place] [address], [address], 12/11/2023 17:15:43 T4, free, serum 2023 024 [email or web address] n [facility], [address] [facility], [place], [address], 12/11/2023 17:15:43 Referral None record ed. Procedures None record ed. Surgeries None record ed. Imaging None record ed. Medication Orders None record ed. Patient TargetsNo targets recorded. Patient Instructions Encounter Date Encounter Id Patient Instructions Last Modified By Organization Details Last Modified Time 11/07/2022 [id number] - Get labs done as ordered - [...] 60 minutes Not available 11/05/2022 10:08:23 05/15/2023 [id number] - Get labs done as ordered - [...] 60 minutes Not available 05/14/2023 16:06:22 12/11/2023 [id number] - Get labs done as ordered - [...] 60 minutes Not available 12/09/2023 09:55:23 07/01/2024 [id number] - Get labs done as ordered - [...] ment No observ ation record ed. [email or web address] [facility] (Imaging) [address], [place], [address], 06/13/2022 13:25:39 Result Notes None recorded. Problems Name Problem SNOMED Code Status Onset Date Resolution Date Notes Provider Name and Address Organization Details Recorded Time Fatigue 49455991 Active Monse armendariz [place] - [facility] 3 16:26:37 Renal angle tenderne ss 348049913 Active Monse Mondragon [facility] 3 16:26:37 Right upper quadrant pain 682761800 Active Aryan Gabriel MD [address] [place] [address], , [facility] 4 13:15:41 Hypoglyc emia 619551382 Active Aryan Gabriel MD [address] [place] [address], , [facility] 6 12:52:34 Type 1 diabetes mellitus 99015616 Active 2003 Aryan Gabriel MD [address] [place] [address], , [facility] 3 13:35:04 Right upper quadrant pain 083960892 Completed 200602/03/2013 Not Available [facility] 3 02:03:18 Type 2 diabetes mellitus without complica tion 016093685 Completed 200709/25/2015 Removal Reason: wrong diagnosi s Treasure Liz LPN [facility] 6 15:52:54 Thyroid function tests abnormal 840890629 Active Danyell Suzie [facility] 4 13:35:04 Benign essentia l hyperten jeanine 6033842 Active 2006 Not Available [facility] 3 03:12:26 Alopecia 65047127 Active Not Available [facility] 3 03:12:26 Hashimot o thyroidi tis 14475949 Active 2007 Aryan Gabriel MD [address] [place] [address], , [facility] 3 13:35:04 Hypothyr oidism 57622752 Active Aryan Gabriel MD [address] [place] [address], , [facility] 3 13:35:04 Amenorrh ea 81573721 Active Not Available [facility] 3 03:12:26 Disorder due to type 2 diabetes mellitus 246804649 Completed 200409/25/2015 Removal Reason: wrong diagnosi s ORION Busby, [facility] 6 15:53:05 Viral upper respirat ory tract infectio n 667702939 Completed 200702/03/2013 Not Available [facility] 3 02:03:11 Malaise and fatigue 890590643 Completed 200602/03/2013 Not Available [facility] 3 02:00:18 Problem Notes None recorded. Procedures Surgical History Date Name Laterality Status Provider Name and Address Organization Details Recorded Time 08/26/19 19 catheterization of right heart completed Brie Villa LPN [facility] 10/01/2018 15:01:08 Imaging Results None recorded. Procedure Notes None recorded. Medical Equipment None Reported. Allergies Allergen ID Allergen Name Allergen Category Reaction Reaction Severity Criticality Documentation Date Start Date Code Code System Note Provider Name and Address Organization Details Recorded Time 89118 Zoloft medicatio n diarrhea Not available Not available 07/20/2008 23057 RxNorm Not Available [facility] 1 06:05:20 27015 lisinopri l medicatio n Not available Not available Not available 07/20/2008 80606 RxNorm angio edema Not Available [facility] 1 06:05:20 01576 hydrocodo ne Not available hives Not available Not available 07/20/2008 5489 RxNorm Not Available [facility] 1 06:05:20 Medications Name Sig Start Date [...] Updated DateTime 4 164.47 cm 28.9 kg/m2 35400.3 2 g 68 /min 128 mm[Hg] 68 mm[Hg] Margo Stephens RN [facility] 4 11:04:58 Date Recorded Body height Provider Name an d Address Organization Details Last Updated DateTime 06/24/2022 164.47 cm Maeve Stafford LPN [facility] 06/24/2022 16:18:55 Date Recorded Body height Body mass index (BMI) Body weight Heart rate Systolic blood pressure Diastolic blood pressure Provider Name and Address Organization Details Last Updated DateTime 5 164.47 cm 28.3 kg/m2 55199.6 7 g 64 /min 120 mm[Hg] 77 mm[Hg] Maeve Nydia [facility] 5 16:50:03 Date Recorded Body height Body mass index (BMI) Body weight Heart rate Systolic blood pressure Diastolic blood pressure Provider Name and Address Organization Details Last Updated DateTime 3 164.47 cm 29.1 kg/m2 64689.9 2 g 72 /min 127 mm[Hg] 68 mm[Hg] Maeve Nydia [facility] 3 11:05:33 Date Recorded Body height Body mass index (BMI) Body weight Heart rate Systolic blood pressure Diastolic blood pressure Provider Name and Address Organization Details Last Updated DateTime 4 164.47 cm 28 kg/m2 51399.9 3 g 84 /min 121 mm[Hg] 74 mm[Hg] Maeve Nydia [facility] 4 11:13:21 Social History Question Answer Notes [...] 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 10/28- Saw other sister (Melva) in [place]- healthy and no problems. 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 Brother just graduated from [employer]) as special garden equipment mechanic. 01/29- Marquise- 1st grade (chapter books); Reginald [...] preservative 9 completed Brie Villa LPN null, [facility] 04/01/2019 15:08:10 COVID-19, mRNA, LNP-S, PF, 100 mcg/0.5mL dose or 50 mcg/0.25mL dose 1 completed Brie Villa LPN null, [facility] 06/15/2020 10:47:46 Influenza, split virus, quadrivalent, preservative 1 completed Margo Stephens RN null, [facility] 12/07/2020 08:36:02 COVID-19, mRNA, LNP-S, PF, 100 mcg/0.5mL dose or 50 mcg/0.25mL dose 2 [facility]21 11:11:07 Past Encounters Encounter ID Performer Location Encounter Start Date Encounter Closed Date Diagnosis/Indication Diagnosis SNOMED-CT Code Diagnosis ICD10 Code Diagnosis Note [id number] [facility] [place] [address] [address] 02/08/2004 17:05:13 02/08/2004 17:05:33 [id number] Aryan Gabriel MD [facility], [address] [address] 02/08/2004 15:42:14 02/10/2004 07:35:35 [id number] Aryan Gabriel MD [facility], [address] [address] 05/04/2004 16:12:37 05/07/2004 09:56:10 [id number] [facility] [place] [address] [address] 05/04/2004 00:00:00 04/06/2008 02:02:29 [id number] Aryan Gabriel MD [facility], [address] [address] 09/14/2004 10:24:44 09/14/2004 17:40:19 [id number] [facility] - [address] [address] 09/14/2004 11:26:41 09/14/2004 11:27:29 [id number] Aryan Gabriel MD [facility], [address] [address] 01/02/2005 13:39:18 01/03/2005 09:27:48 [id number] [facility] [place] [address] [address] 01/02/2005 00:00:00 04/06/2008 02:02:29 [id number] [facility] [place] [address] [address] 06/12/2005 09:09:26 06/12/2005 10:02:23 [id number] Aryan Gabriel MD [facility], [address] [address] 08/29/2005 14:58:48 08/30/2005 08:40:12 [id number] [facility] [place] [address] [place] [address] 08/29/2005 00:00:00 04/06/2008 02:02:29 [id number] [facility] [place] [facility] [place] [address] 01/15/2006 09:29:45 01/15/2006 09:29:49 [id number] Aryan Gabriel MD [facility], [address] [place] [address] 04/02/2006 16:57:03 04/03/2006 10:28:33 [id number] [facility] - [facility] [place] [address] 04/02/2006 00:00:00 04/06/2008 02:02:29 [id number] [facility] [address] [place] [address] 04/14/2006 14:27:52 04/14/2006 14:28:07 [id number] [facility] [address] [place] [address] 09/22/2006 13:53:51 09/22/2006 13:54:05 [id number] Aryan Gabriel MD [facility], [address] [place] [address] [id number] [facility] [place] [address] [place] [address] 09/24/2006 00:00:00 04/06/2008 02:02:29 [id number] [facility] - [address] [place] [address] 04/17/2007 09:52:54 04/17/2007 09:53:00 [id number] Aryan Gabriel MD [facility], [address] [place] [address] 06/25/2007 08:52:28 04/06/2008 02:02:29 [id number] Aryan Gabriel MD [facility], [address] [place] [address] 04/17/2007 09:54:37 07/16/2007 15:29:09 [id number] Aryan Gabriel MD [facility], [address] [place] [address] 07/31/2007 08:51:37 04/06/2008 02:02:29 [id number] [facility] - [address] [place] [address] 07/31/2007 10:29:54 07/31/2007 10:30:03 [id number] Aryan Gabriel MD [facility], [address] [place] [address] 09/09/2007 09:48:24 04/06/2008 02:02:29 [id number] [facility] - [address] [place] [address] 09/28/2007 13:20:34 09/28/2007 13:20:42 [id number] Mali Watson PA-C [facility], [address] [place] [address] 10/08/2007 11:03:46 04/06/2008 02:02:29 [id number] Mali Wtason PA-C [facility], [address] [place] [address] 10/26/2007 10:58:15 04/06/2008 02:02:29 [id number] [facility] [address] [place] [address] 12/07/2007 12:33:57 12/07/2007 12:34:04 [id number] Aryan Gabriel MD [facility], [address] [place] [address] 12/11/2007 10:20:10 04/06/2008 02:02:29 [id number] [facility] - [address] [place] [address] 10/26/2007 00:00:00 04/06/2008 02:02:29 [id number] Mali Watson PA-C [facility], [address] [place] [address] 12/31/2007 11:50:44 04/06/2008 02:02:29 [id number] Aryan Gabriel MD [facility], [address] [place] [address] 02/04/2008 14:44:36 04/06/2008 02:02:29 [id number] Aryan Gabriel MD [facility], [address] [place] [address] 04/06/2008 09:51:20 04/19/2008 02:02:00 [id number] Aryan Gabriel MD [facility], [address] [place] [address] 07/20/2008 09:57:17 07/22/2008 08:33:28 [id number] Aryan Gabriel MD [facility], [address] [place] [address] 11/11/2008 11:02:04 11/24/2008 10:54:42 [id number] [facility] - [address] [place] [address] 07/20/2008 09:50:24 07/20/2008 09:50:29 [id number] [facility] - [address] [place] [address] 11/11/2008 00:00:00 01/12/2009 02:00:52 [id number] Aryan Gabriel MD [facility], [address] [place] [address] 04/26/2009 09:59:50 04/26/2009 17:20:21 [id number] Aryan Gabriel MD [facility], [address] [place] [address] 10/25/2009 14:10:49 10/30/2009 09:33:46 [id number] Aryan Gabriel MD [facility], [address] [place] [address] 05/24/2010 10:53:32 05/29/2010 10:20:58 [id number] Aryan Gabriel MD [facility], [address] [place] [address] 11/30/2010 10:57:42 11/30/2010 12:33:46 [id number] Aryan Gabriel MD [facility], [address] [place] [address] 01/31/2011 14:03:01 01/31/2011 15:32:20 [id number] Mali Watson PA-C [facility], [address] [place] [address] 03/28/2011 14:09:27 03/28/2011 15:02:08 [id number] Aryan Gabriel MD [facility], [address] [address] 06/12/2011 11:19:36 07/11/2011 08:50:57 [id number] Aryan Gabriel MD [facility], [address] [address] 08/29/2011 10:02:03 08/29/2011 10:59:01 [id number] Aryan Gabriel MD [facility], [address] [address] 12/19/2011 11:42:56 12/19/2011 13:18:17 [id number] Aryan Gabriel MD [facility], [address] [address] 04/15/2012 09:32:27 04/15/2012 10:51:09 [id number] Aryan Gabriel MD [facility], [address] [address] 01/25/2013 10:09:47 01/25/2013 11:32:19 Type 1 diabetes mellitus 94084635 Many lows in AM. Change 4:30 from 1.25 to 1.1 units. Also encourage her to consider temp basal when working nights. Needs to work different shifts to get to 32 hours at pay rate she needs. Hypothyroidism 06486245 TSH good on 75 mcg. (TSH= 0.9). Right uppe r quadrant pain 087950406 Quite significan t today with evidence of guarding- No rebound. In past, has resulted in ER visit. No clear etiology- In past, had negative CT scan and U/S but none recently. Clearly still having RUQ pain today. Has seen Ac in past. since no recent u/s, will repeat and check CXR as well (for right costophren ic angle. Fatigue 11193704 01/27- Cold and tired. TFTs, CMP and CBC OK in 11/27. Not sure how much of this may be due to frequent changes in shifts. Fitting procedure [id number] Monitor sugars and boluses as above. Will make recommenda tions depending on patterns. Renal angl e tenderness 233619433 Check u/a and C&S. She also describes as pleuritic. [id number] Aryan Gabriel MD [facility], [address] [address] 06/25/2013 11:03:49 06/25/2013 12:18:36 Type 1 diabetes mellitus 18088079 Although a1c at target, she has wide swing in BG reflecting sub-optima l control. 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 Many lows in evening and overnight [...] hours at pay rate she needs) Hypothyroidism 86952782 TSH good on 75 mcg. (TSH at goal). continue and monitor labs Right uppe r quadrant pain 758195774 Has been very significan t in past but comes and goes. No clear etiology- In past, had negative CT scan and U/S. Has not seen GI (Ac) because conflictin g with work/schoo l. Work/Schoo l will continue through summer. Finishes in July 2014. Fitting procedure [id number] Monitor sugars and boluses as above. Will make recommenda tions depending on patterns. [id number] Aryan Gabriel MD [facility], [address] [address] 10/20/2013 11:13:24 10/20/2013 12:35:24 Type 1 diabetes mellitus 67352108 Although A1c at target, she has several lows and occ highs. 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 Many lows in evening and overnight [...] hours at pay rate she needs) Hypothyroidism 25897407 TSH good on 75 mcg. (TSH at [...] stable job. Right uppe r quadrant pain 501086299 Has been very significan t in past but comes and goes. No clear etiology- In past, had negative CT scan and U/S. Has not seen GI (Ac) because conflictin g with work/schoo l. Work/Schoo l will continue through summer. Finishes in July 2014. Insulin pump present 663837098 see above complicate s case. [id number] Aryan Gabriel MD [facility], [address] [address] 03/25/2014 10:55:05 03/25/2014 12:09:37 Type 1 diabetes mellitus 90002175 Excellent a1c on insulin pump. Has lows [...] so will continue on current regimen. Hypothyroidism 17773698 TSH good on 75 mcg generic. (TSH [...] a more stable job. Insulin pump present 590913959 see above complicate s case. [id number] Aryan Gabriel MD [facility], [address] [address] 09/14/2014 16:56:28 09/15/2014 10:30:23 Type 1 diabetes mellitus 07378256 Excellent a1c on insulin pump- what might [...] reduce lows happening when she wakes. Hypothyroidism 90222017 TSH good on 75 mcg generic. (TSH [...] she needs to continue. Insulin pump present 275648828 see above complicate s case. [id number] Aryan Gabriel MD [facility], [address] [address] 02/01/2015 16:56:26 03/07/2015 06:20:24 Type 1 diabetes mellitus 99297714 E10.9 Excellent a1c on insulin pump- Continue [...] her diet the way it is. Hypothyroidism 88927635 E03.9 TSH good on 75 mcg generic. (TSH at goal). Continue and monitor labs. Reviewed hx- TSH over 9 after post-partu m thyroiditi s and had significan t sx. Insulin pump present 450 301762 Z96.41 see above complicate s case. [id number] Aryan Gabriel MD [facility], [address] [address] 04/26/2015 16:44:59 05/05/2015 09:28:03 Type 1 diabetes mellitus 77774464 E10.9 Excellent a1c on insulin pump- However, [...] her diet the way it is. Hypothyroidism 46026423 E03.9 TSH good on 75 mcg generic. (TSH at goal). Continue and monitor labs. Insulin pump present 450 236530 Z96.41 see above- complicate s case. Hypoglycemia 853939951 E 16.2 Frequent- discussed ramificati ons of repeated hypoglycem ia (becoming unaware of sx and potential health consequenc es over time). [id number] Aryan Gabriel MD [facility], [address] [address] 01/31/2016 16:57:57 02/01/2016 07:44:36 Type 1 diabetes mellitus 04486824 E10.9 Excellent a1c on insulin pump- However, [...] way it is. Insulin pump present 450 005696 Z96.41 see above- complicate s case. Hypothyroidism 81419828 E03.9 TSH good on 75 mcg generic. (TSH at goal). Continue and monitor labs. Syncope 629649043 R55 Post half-elizabeth hon but felt poorly [...] ETT (Full Abdoulaye protocol). Mom has POTS [id number] Aryan Gabriel MD [facility], [address] [address] 05/02/2016 16:55:29 05/03/2016 07:31:19 Hypothyroidism 59957710 E03.9 OK on 75 mcg generic (1.00 in 05/03) Localized swelling, mass and lump, neck 893213729 R22.1 CT reports fluid density structure from [...] needs to review with insurance about whether [place] has an Endocrine provider who can perform u/s guided bx. Given long-stand [facility] ip with this patient, she would like to see if possible for me to perform this here. Have to also figure out place with sufficient ly expertise to interpret cytology. Type 1 melania betes mellitus 94454061 E10.9 Excellent a1c on insulin pump- Most [...] with her diet the way it is. [id number] Aryan Gabriel MD [facility], [address] [address] 09/05/2016 16:06:13 09/05/2016 17:17:00 Hypothyroidism 49146828 E03.9 OK on 75 mcg generic (1.98 in 08/31) Type 1 melania betes mellitus 43549142 E10.9 Excellent a1c on insulin pump- Most [...] way it is. Thyrogloss al duct cyst 28888779 Q89.2 Has been confusing because CT reported fluid density structure from upper left thyroid strap muscle through the thyrohyoid membrane deep to the hyoid bone in the midline, suggestive of a thyrogloss al duct cyst. Measuremen ts were 1.3 (T)x1.3 (AP) by 1.5 (sag). But U/S ([place]) reported complex cyst measuring 1.6x1.4x1. 6 superior to the hyoid bone . Consult with [facility] reported that complex nodule was just inferior to hyoid bone so more c/w thyrogloss al duct cyst. This mass seems to periodical ly change in size and tenderness and associated (intermitt ently) with dysphagia sx. Plan is for surgery. [id number] Aryan Gabriel MD [facility], [address] [address] 04/04/2017 13:52:07 04/04/2017 14:59:13 Type 1 diabetes mellitus 63545178 E10.9 Excellent a1c in past on insulin [...] her diet the way it is. 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 04/03- Difficult to palpate today. [id number] Darcy Rodriguez, RN, BSN, [facility] [employer] , [facility] [address] [place] [address] 07/30/2017 09:57:01 07/30/2017 17:28:11 Uncontrolled type 1 diabetes mellitus 836091211 E10.65 Met with Vanesa today for insulin [...] data to providers Insulin pump present 450 257298 Z96.41 [id number] Aryan Gabriel MD [facility], [address] [address] 08/01/2017 14:14:29 08/01/2017 15:48:58 Type 1 diabetes mellitus 18371638 E10.9 Excellent a1c overall but problem with [...] way it is. 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 04/03- Difficult to palpate today. Hypothyroidism 27179910 E03.9 OK on 75 mcg generic (1.99 in 05/04) [id number] Darcy Rodriguez, RN, BSN, [facility] [employer] , [facility] [address] [place] [address] 08/06/2017 09:49:10 08/06/2017 16:47:18 Uncontrolled type 1 diabetes mellitus 075150323 E10.65 Met with Vanesa today for insulin [...] data to providers Insulin pump present 450 314844 Z96.41 [id number] Aryan Gabriel MD [facility], [address] [address] 12/05/2017 12:49:30 12/05/2017 14:25:34 Hypothyroidism 61086226 E03.9 Thyroid not appreciabl e on exam. Pt. asymptomat ic of thyroid dysfunctio n at this visit.Cont inue on levothyrox ine 75 mcg (TSH= 2.5 in 08/01; was 1.99, FT4 1.12 in 05/04). Adult heal th examination 470065893 Z00.00 Pt. with subjective and objective exam [...] of pneumonia. Type 1 melania betes mellitus 50706113 E10.9 Per pt. A1c checked yesterday - [...] ing of. recommend pt. follow up with critical care educator. Insulin pump present [id number] Z96.41 see above- complicate s case. [id number] Aryan Gabriel MD Endocrino logy, [facility] [address] [place] [address] 04/09/2018 14:44:09 04/14/2018 06:25:19 Type 1 diabetes mellitus 98143347 E10.9 Per pt. A1c checked yesterday - [...] time but I will contact pump company ([employer]) to see about providing patient with additional support. Hypothyroidism 47379069 E03.9 Thyroid not appreciabl e on exam. Pt. asymptomat ic of thyroid dysfunctio n at this visit.Cont inue on levothyrox ine 75 mcgTSH= 3.68 (04/04); was 2.5 in 08/01; was 1.99, FT4 1.12 in 05/04). Insulin pump present 450 [id number] Z96.41 see above- complicate s case. 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 [id number] Aryan Gabriel MD Endocrino logy, [facility] [address] [place] [address] 10/01/2018 14:51:20 10/05/2018 07:18:26 Hypothyroidism 07695865 E03.9 Thyroid not appreciabl e on exam. Pt. asymptomat ic of thyroid dysfunctio n at this visit.Cont inue on levothyrox ine 75 mcgTSH= 3.68 (04/04); was 2.5 in 08/01; was 1.99, FT4 1.12 in 05/04). Update labs. Type 1 melania betes mellitus 23170081 E10.9 No recent labs.Last A1c was 5.8 [...] time but I will contact pump company ([employer]) to see about providing patient with additional support. Insulin pump present 450 125998 Z96.41 see above- complicate s case. 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 Previous imaging: CT reported fluid density structure [...] and associated (intermitt ently) with dysphagia sx. [id number] Aryan Gabriel MD Endocrino logy, [address] [address] 04/01/2019 14:56:01 04/02/2019 06:50:02 Type 1 diabetes mellitus 93320934 E10.9 A1c not done with 04/05 labs.A1c= [...] for ramp up in sensitivit y. Hypothyroidism 78496243 E03.9 No nodules. Previous thyrogloss al duct cyst not appreciate d today.Cont inue on levothyrox ine 75 mcgTSH= 1.62 (04/05); was 3.68 (04/04); was 2.5 in 08/01; was 1.99, FT4 1.12 in 05/04). Monitor labs. 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 Previous imaging: CT reported fluid density structure [...] dysphagia sx. Currently monitoring this clinically . [id number] Aryan Gabriel MD Endocrino logy, [facility] [address] [place] [address] 12/23/2019 07:39:26 12/24/2019 07:48:46 Hypothyroidism 70613653 E03.9 No nodules.Pandya s hx thyrogloss al duct cyst. Has not gone for surgeryCon tinue on levothyrox ine 75 mcgTSH= 1.62 (04/05); was 3.68 (04/04); was 2.5 in 08/01; was 1.99, FT4 1.12 in 05/04). Monitor labs. Uncontroll ed type 1 diabetes mellitus 119965612 E10.65 needs Rx for humalog Type 1 melania betes mellitus 14596607 E10.9 Last A1c= 5.8 (01/03); was 5.9 [...] time but I will contact pump company ([employer]) to see about providing patient with additional support. 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 Previous imaging: CT reported fluid density structure from upper left thyroid strap muscle through the thyrohyoid membrane deep to the hyoid bone in the midline, (c/w thyrogloss al duct cyst). Measuremen ts were 1.3 (T)x1.3 (AP) by 1.5 (sag). However, U/S ([place]) reported complex cyst measuring 1.6x1.4x1. 6 superior to the hyoid bone . Otf reported that complex nodule was just inferior to hyoid bone so more c/w thyrogloss al duct cyst. Per patient, periodical ly changes in size and tenderness and associated (intermitt ently) with dysphagia sx. Currently monitoring this clinically . [id number] Aryan Gabriel MD Endocrino logy, [address] [address] 06/15/2020 10:40:19 06/16/2020 07:17:55 Type 1 diabetes mellitus 32755842 E10.9 Last A1c= 5.8 (01/03); was 5.9 [...] made in management at this time Hypothyroidism 65744113 E03.9 Continue on levothyrox ine 75 mcg TSH= 1.86 (06/04); was 1.62 (04/05); was 3.68 (04/04); was 2.5 in 08/01; was 1.99, FT4 1.12 in 05/04). Monitor labs. No nodules. Has hx thyrogloss al duct cyst. 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 Previous imaging: CT reported fluid density structure [...] dysphagia sx. Currently monitoring this clinically . [id number] Aryan Gabriel MD Endocrino logy, [facility] [address] [place] [address] 01/25/2021 09:33:53 03/18/2021 13:28:01 Hypothyroidism 29436739 E03.9 Continue on levothyrox ine 75 mcg TSH= 1.41 (02/04); was 1.86 (06/04); was 1.62 (04/05); was 3.68 (04/04); was 2.5 in 08/01; was 1.99, FT4 1.12 in 05/04). Monitor labs. No nodules. Has hx thyrogloss al duct cyst. Has not gone for surgery Type 1 melania betbonita mellitus 00394889 E10.9 Last A1c= 5.9 (02/04); was 5.8 [...] health consequenc es. 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 Previous imaging: CT reported fluid density structure [...] dysphagia sx. Currently monitoring this clinically . [id number] Aryan Gabriel MD Endocrino logy, [address] [address] 08/23/2021 10:46:15 10/11/2021 07:57:36 Type 1 diabetes mellitus 18314402 E10.9 Last A1c= 5.9 (02/04); was 5.8 [...] ia causing serious health consequenc es. Hypothyroidism 88341579 E03.9 Continue on levothyrox ine 75 mcg TSH= 1.41 (02/04); was 1.86 (06/04); was 1.62 (04/05); was 3.68 (04/04); was 2.5 in 08/01; was 1.99, FT4 1.12 in 05/04). Monitor labs. Has hx thyrogloss al duct cyst. 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 Previous imaging: CT reported fluid density structure [...] dysphagia sx. Currently monitoring this clinically . [id number] Aryan Gabriel MD Endocrino logy, [address] [address] 03/21/2022 11:00:39 03/29/2022 11:35:12 Type 1 diabetes mellitus 81010900 E10.9 Last A1c= pending (04/08); was 5.9 [...] ia causing serious health consequenc es. Hypothyroidism 90904174 E03.9 Continue on levothyrox ine 75 mcg TSH= 1.54 (09/05); was 1.41 (02/04); was 1.86 (06/04); was 1.62 (04/05); was 3.68 (04/04); was 2.5 in 08/01; was 1.99, FT4 1.12 in 05/04). Monitor labs. Has hx thyrogloss al duct cyst. Has not gone for biopsy or surgery. 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 Previous imaging: CT reported fluid density structure from upper left thyroid strap muscle through the thyrohyoid membrane deep to the hyoid bone in the midline, (c/w thyrogloss al duct cyst). Measuremen ts were 1.3 (T)x1.3 (AP) by 1.5 (sag). However, U/S ([place]) reported complex cyst measuring 1.6x1.4x1. 6 superior to the hyoid bone . Otf reported that complex nodule was just inferior to hyoid bone so more c/w thyrogloss al duct cyst. Per patient, periodical ly changes in size and tenderness and associated (intermitt ently) with dysphagia sx. Currently monitoring this clinically .check chromogran in A- may want to consider urine 5HIAA. [id number] Aryan Gabriel MD Endocrino logy, [address] [address] 06/04/2022 12:43:55 06/06/2022 13:25:31 Thyroglossal duct cyst 77768328 Q89.2 By clinical hx. 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 Bx done 06/06 was non-diagno stic.Revie wed that she could have repeat bx (non-diagn ostic biopsies have 50/50 chance of returning cells the next time). Alternativ e would be to continue to monitor with exam and u/s.- She prefers monitoring . Will plan for f/u ultrasound in early 2023. [id number] Aryan Gabriel MD Endocrino logy, [address] [address] 11/07/2022 10:57:01 01/14/2023 08:01:54 Type 1 diabetes mellitus 80468943 E10.9 Last A1c= 5.7 (11/06); was 6.3 [...] ratio. noon from 9.0 to 8.5.* Hypothyroidism 94971489 E03.9 Continue on levothyrox ine 75 mcg TSH= 2.31 (11/06) was 2.30 (04/08) was 1.54 (09/05); was 1.41 (02/04); was 1.86 (06/04); was 1.62 (04/05); was 3.68 (04/04); was 2.5 in 08/01; was 1.99, FT4 1.12 in 05/04). Monitor labs. Has hx thyrogloss al duct cyst. Has not gone for biopsy or surgery. Thyrogloss al duct cyst 62510175 Q89.2 Slightly atypical presentati on with mass above the hyoid (usually below). Previous imaging: CT reported fluid density structure from upper left thyroid strap muscle through the thyrohyoid membrane deep to the hyoid bone in the midline, (c/w thyrogloss al duct cyst). Measuremen ts were 1.3 (T)x1.3 (AP) by 1.5 (sag). However, U/S ([place]) reported complex cyst measuring 1.6x1.4x1. 6 superior to the hyoid bone . Otf reported that complex nodule was just inferior to hyoid bone so more c/w thyrogloss al duct cyst. 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 Per patient, periodical ly changes in size and tenderness and associated (intermitt ently) with dysphagia sx. Had biopsy 06/06 which was non-diagno stic but did aspirate some fluid from nodule. Pt says that nodule seems smaller overall. [id number] Aryan Gabriel MD Endocrino logy, [address] [address] 05/15/2023 10:36:35 06/21/2023 08:08:25 Hypothyroidism 44864683 E03.9 Continue on levothyrox ine 75 mcg TSH= 2.18 (05/10) was 2.31 (11/06) was 2.30 (04/08) was 1.54 (09/05); was 1.41 (02/04); was 1.86 (06/04); was 1.62 (04/05); was 3.68 (04/04); was 2.5 in 08/01; was 1.99, FT4 1.12 in 05/04). Monitor labs. Has hx thyrogloss al duct cyst. Has not gone for biopsy or surgery. Thyrogloss al duct cyst 22058925 Q89.2 Slightly atypical presentati on with mass above the hyoid (usually below). Previous imaging: CT reported fluid density structure from upper left thyroid strap muscle through the thyrohyoid membrane deep to the hyoid bone in the midline, (c/w thyrogloss al duct cyst). Measuremen ts were 1.3 (T)x1.3 (AP) by 1.5 (sag). However, U/S ([place]) reported complex cyst measuring 1.6x1.4x1. 6 superior to the hyoid bone . Otf reported that complex nodule was just inferior to hyoid bone so more c/w thyrogloss al duct cyst. 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 Per patient, periodical ly changes in size and tenderness and associated (intermitt ently) with dysphagia sx. Had biopsy 06/06 which was non-diagno stic but did aspirate some fluid from nodule. Pt says that nodule seems smaller overall. Type 1 melania betes mellitus 90553959 E10.9 ACR= 4.9 (05/10)05/10 : 154/42/71/ 75tsh= [...] Whole family is participat ing in effort.Alt celai she has 670 pump, she has had [...] of sensor and then autocorrec t feature. [id number] Aryan Gabriel MD Endocrino logy, [facility] [address] [place] [address] 12/11/2023 10:55:14 12/16/2023 08:53:40 Type 1 diabetes mellitus 76288508 E10.9 A1c= 6.3% (12/08); was 5.7 (05/10 [...] family.Muc h happier with Mobi (changed from [employer]) . Pt. reports fewer lows overall with [...] ia. Overall better with Mobi/Dexco m. Hypothyroidism 30483453 E03.9 Continue on levothyrox ine 75 mcg [...] date for surgery. Thyrogloss al duct cyst 52439086 Q89.2 Slightly atypical presentati on with mass above the hyoid (usually below).Exa m notes this is high in neck (towards left) Previous imaging: CT reported fluid density structure from upper left thyroid strap muscle through the thyrohyoid membrane deep to the hyoid bone in the midline, (c/w thyrogloss al duct cyst). Measuremen ts were 1.3 (T)x1.3 (AP) by 1.5 (sag). However, U/S ([place]) reported complex cyst measuring 1.6x1.4x1. 6 superior [...] will be jimbo lino time for surgery. [id number] Aryan Gabriel MD Endocrino logy, [facility] [address] [place] [address] 07/01/2024 16:30:48 07/02/2024 07:27:18 Type 1 diabetes mellitus 79826923 E10.9 A1c= 6.2 (07/09); was 6.3% (12/08); [...] family. Much happier with Mobi (changed from [employer]) .05/10: highs later evening but shortly after [...] (currently correction is 1:50 entire 24h). Hypothyroidism 76652615 E03.9 Continue on levothyrox ine 75 mcg [...] planned for 10/08 Thyrogloss al duct cyst 47174427 Q89.2 Slightly atypical presentati on with mass above the hyoid (usually below).Exa m notes this is high in neck (towards left) Previous imaging: CT reported fluid density structure from upper left thyroid strap muscle through the thyrohyoid membrane deep to the hyoid bone in the midline, (c/w thyrogloss al duct cyst). Measuremen ts were 1.3 (T)x1.3 (AP) by 1.5 (sag). However, U/S ([place]) reported complex cyst measuring 1.6x1.4x1. 6 superior [...] Recorded Advance Directives Directive None Recorded Payers Insurance Date Sequence Insurance Name Policy Number Policy Randhawa Covered Member ID Randhawa Member ID Guarantor Name 08/22/2021 1 [facility] [id number] Vanesa Urban [id number] Vanesa Rodriguez 05/15/2023 1 [facility] [facility] [id number] Vanesa Rodriguez [id number] Vanesa Rodriguez 08/22/2021 1 [place] [id number] Vanesa Urban [id number] Vanesa Rodriguez 08/22/2021 1 [facility] [id number] Vanesa Urban [id number] Vanesa Rodriguez 03/25/2006 1 [facility] [id number] Donell Peña [id number] Vanesa Rodriguez 08/22/2021 1 [place]EDU[place]IBLE PROGRAM (HMO) [id number] Vanesa Rodriguez [id number] Vanesa Rodriguez 08/22/2021 1 [place]ICES [place] (PPO) [id number] Vanesa Rodriguez [id number] Vanesa Rodriguez 08/22/2021 1 [place] [id number] Vanesa Rodriguez [id number] Vanesa Rodriguez 08/22/2021 2 [place] Vanesa Rodriguez [id number] Vanesa Rodriguez 12/07/2007 1 [facility] [id number] Donell Peña [id number] Vanesa Rodriguez 08/22/2021 1 EBPA - CBA Vanesa Peña [id number] Vanesa Rodriguez 08/22/2021 1 [facility] [id number] Vanesa Peña [id number] Vanesa Rodriguez 12/28/2007 1 UNSPECIFIED REMIT PAYOR Vanesa Rodriguez 08/22/2021 1 EB[facility] - [facility] ([facility]) Vanesa Ardonn [id number] Vanesa Rodriguez 08/22/2021 1 [place] [id number] Vanesa Ahmadi [id number] Vanesa Rodriguez 08/22/2021 1 BLUE [employer]ENEF[place]MIN[place] Vanesa Rodriguez [id number] Vanesa Rodriguez 06/28/2024 1 [place] [employer] [id number] Vanesa Urban [id number] Vanesa Rodriguez 08/22/2021 1 [employer] [place] [id number] Vaensa Urban [id number] Vanesa Rodriguez 08/22/2021 1 [facility] [place] [id number] Vanesa Ahmadi [id number] Vanesa Rodriguez 06/01/2020 1 *SELF PAY* Sin suarez Gabriella Rodriguez 08/22/2021 1 [facility] ([facility]) [id number] Vanesa Urban [id number] Vanesa Rodriguez 08/22/2021 1 [facility] ([facility]) Vanesa Rodriguez [id number] Vanesa Rodriguez Notes Date Note Type Note Provider Name [...] initially but has re-accumulated. Aryan Gabriel MD [address] [place] [address], [phone] , [facility] 06/24/2022 17:38:06 023 text/ht ml DiabetesReported bypatient.Labs:last [...] chronic itching and irritated- weekly fluconizole from SAP TECHNICAL ARCHITECT (Marquise). 11/06 prophylactic diflucan.); no polydypsia; no blurred vision; 11/06: ongoing weekly fluconazole maintaining. Suggest URO-SAP TECHNICAL ARCHITECT. Cardiac / Eye / Podiatric / Renal [...] OTHER:ast/alt= 31/ (09/05); OK in 01/03; was 41/ (04/05); tsh/fT4= 2.31/1.1 (11/06); was 1.54/1.4 (09/05); [...] quercitin and vit C). Much less URIs. Chicken leaf acutely. Tried mixture of B vitamins [...] abdominal pain. No CP. Has been to [facility] and had right heart cath which showed [...] in place until 03/2023Last thyroid US on had biopsy on 06/06PT has Pump/medtronic will [...] chronic yeast 11/06: no changes. SOCIAL Hx (updated):6/22: Estranged from mom/dad and Denita. Wasn't included in Denita's wedding democrat (changed date and pt already had plans for cruise).Pt feels mom and pain meds have been an issue. Tried to set boundaries and difficult interaction. 04/08: In contact with Melva and Ladi. (Ancestry showed Ladi has different dad).11/06: Exercise- when I can ; stress from daughter's eating disorder. Pt still working FAMILY/ KIDS:Marquise (b 2008)- EDS: Pain/palliative. has Rheum. all out of [place] Children.Reginald (2011): Marquise (14) Ehrlers-Danlos Syndrome. Developed anorexia/restricting (lost 30# in 2 months). Hospitalized in [place] x 3 months. then partial admission in [place] ([place]). Now home with [facility]. Weight restored- emotionally not so good. Bullying (children and parents- [place]) Other issues with grandma dropping things off [...] No vomiting (like in past).Even happened at [facility]. Has had extensive w/u and no clear etiology. Pain more likely with higher CHO diet.Previously had less sx when watched diet (on cruise). On a previous cruise, ate what she wanted and had pain. -DIZZINESS/VOMITING: better lately. saw Neuro (Dany) who suggested stop OCP (better).Thinks related to Dengue (2014-). Got in [place] (on cruise). -HEADACHES: hx of migraines. worse [...] with standing in AM. Aryan Gabriel MD [address] [place] [address], [phone] , [facility] 01/13/2023 19:12:22 024 text/ht ml DiabetesReported bypatient.Labs:last [...] Medications:lispro (in pump.) Insulin pump settings:Insulin pump modelveriCARtronics 670; - See pump download- Renal/HTN Medications:No [...] chronic itching and irritated- weekly fluconizole from SAP TECHNICAL ARCHITECT (Marquise). 11/06 prophylactic diflucan. 05/10: No changes.); no polydypsia; no blurred vision (04/09.); 11/06: ongoing weekly fluconazole maintaining. 05/10: ongoing- doing well. Cardiac / Eye / Podiatric / Renal / Vascular Symptomsno coronary artery disease; no retinopathy (Hupalmerberg (04/09). due 01/06. Had seen Noel who found mole OS- Stable.); no numbness of feet; no kidney disease; no neuropathy Hypoglycemia Symptomsfrequency of hypoglycemic episodesweekly (05/10: early AM work-outs. Was having lots of lows. 20-30s x hours. workouts now on w/e and only once at 3AM. fewer lows. 1-2x per week in 50-70 range.WORK: [place] location ([employer])- 3 min commute.In past, has had seizure [...] quercitin and vit C). Much less URIs. Chicken leaf acutely. Tried mixture of B vitamins [...] abdominal pain. No CP. Has been to [facility] and had right heart cath which showed [...] ET (CPET)- retaining CO2. respiratory rate dropped. [facility] repeated and did right heart cath - [...] and Denita. Wasn't included in Denita's wedding democrat (changed date and pt already had plans [...] (lost 30# in 2 months). Hospitalized in [place] x 3 months. then partial admission in [place] ([place] Now home with [employer] [facility]. Weight restored- emotionally not so good. Bullying (children and parents- [place]) Other issues with grandma dropping things off [...] No vomiting (like in past).Even happened at [place]. Has had extensive w/u and no clear etiology. Pain more likely with higher CHO diet.Previously had less sx when watched diet (on cruise). On a previous cruise, ate what she wanted and had pain. -DIZZINESS/VOMITING: Not lately (05/10) better lately. saw Neuro (Dany) who suggested stop OCP (better).Thinks related to Dengue (2014-). Got in [place] (on cruise). -HEADACHES: hx of migraines. worse [...] with standing in AM. Aryan Gabriel MD [address] [place] [address], [phone] , [facility] 06/20/2023 15:24:39 024 text/ht ml DiabetesReported bypatient.Labs:last [...] insulin pump make; - See pump download- [employer] and [employer] 7. very pleased. Renal/HTN Medications:No renal/HTN meds. Lipid Medications:No lipids meds. Associated Symptoms:no polyuria; no nocturia; no burning or discomfort with urination; no foul odor or discharge;foul odor or discharge(Ongoing- chronic itching and irritated- weekly fluconizole from SAP TECHNICAL ARCHITECT (Marquise). 11/06 prophylactic diflucan. 05/10: No changes.); no polydypsia; no blurred vision (04/09.); 11/06: ongoing weekly fluconazole maintaining. 05/10: ongoing- weekly fluconazole. Cardiac / Eye / Podiatric / Renal / Vascular Symptomsno coronary artery disease; no retinopathy (Hupalmerberg (04/09). due 01/06. Had seen [facility] who found mole OS- Stable.); no numbness [...] (01/03)vitD = 74.3 (2019) Used to have [employer] 670g but hates it. Won't use sensor [...] quercitin and vit C). Much less URIs. Chicken leaf acutely. Tried mixture of B vitamins [...] abdominal pain. No CP. Has been to [facility] and had right heart cath which showed [...] ET (CPET)- retaining CO2. respiratory rate dropped. [facility] repeated and did right heart cath - [...] and Denita. Wasn't included in Denita's wedding democrat (changed date and pt already had plans for cruise).Pt feels mom and pain meds have been an issue. Tried to set boundaries and difficult interaction. 04/08: In contact with Melva and Ladi. (Ancestry showed Ladi has different dad).11/06: Exercise- when I can ; stress from daughter's eating disorder. Pt still working05/10: TIS- running. 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 Not competitive.12/08: traveling [place] [place] for Xmas.Miguel Ángel/Edy/Adi. FAMILY/ KIDS:Marquise (b 2007)- EDS: Pain/palliative. has Rheum. all out of CT Children.Reginald (2012): Marquise (14) Ehrlers-Danlos Syndrome. Developed anorexia/restricting (lost 30# in 2 months). Hospitalized in [place] x 3 months. then partial admission in [place] Now home with [employer] services. Weight restored- emotionally not so good. Bullying (children and parents- [place]) Other issues with grandma dropping things off [...] No vomiting (like in past).Even happened at [facility]. Has had extensive w/u and no clear etiology. Pain more likely with higher CHO diet.Previously had less sx when watched diet (on cruise). On a previous cruise, ate what she wanted and had pain. -DIZZINESS/VOMITING: Not lately (05/10) better lately. saw Neuro (Dany) who suggested stop OCP (better).Thinks related to Dengue (2014-). Got in [place] (on cruise). -HEADACHES: hx of migraines. worse than usual due to stress.12/08: OngoingOToi in pastOccasional but not severe (2 per [...] with standing in AM. Aryan Gabriel MD [address] [place] [address], [phone] , [facility] 12/15/2023 18:37:34 025 text/ht ml DiabetesReported bypatient.Labs:last [...] insulin pump make; - See pump download- MOBI and Dexcom 7. Very pleased. Renal/Hypertension (HTN) MedsNo renal/HTN meds. Lipid Medications:No lipids meds. Associated Symptoms:no polyuria; no nocturia; no burning or discomfort with urination;foul odor or discharge(07/09: Ongoing- chronic itching and irritated- weekly fluconizole (100; was 150); Gets from SAP TECHNICAL ARCHITECT (Marquise). 11/06 prophylactic diflucan.); no polydypsia; no blurred vision ([place] in 06/08. Nevus OS- being followed.) Cardiac / Eye / Podiatric / Renal / Vascular Symptomsno coronary artery disease; no retinopathy ([place]merberg (06/08). NevusOS- Stable.); no numbness of feet; [...] quercitin and vit C). Much less URIs. Chicken leaf acutely. Tried mixture of B vitamins [...] abdominal pain. No CP. Has been to [facility] and had right heart cath which showed [...] add to chartPlanned surgery Dr. Vanessa in .25Thyroglossal duct cyst F/U T1DM on pump.PT has [...] and Denita. Wasn't included in Denita's wedding democrat (changed date and pt already had plans for cruise).Pt feels mom and pain meds have been an issue. Tried to set boundaries and difficult interaction. 04/08: In contact with Melva and Ladi. (Ancestry showed Ladi has different dad).11/06: Exercise- when I can ; stress from daughter's eating disorder. Pt still working05/10: TIS- running. 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 Not competitive.12/08: traveling [place] [place] for Xmas.[place].07/09: trip great. [employer]fit at home. [employer]. FAMILY/ KIDS:Marquise (ryan 2007)- EDS: Pain/palliative. has Rheum. all out of [place] Children.Reginald (2012): Marquise (14) Ehrlers-Danlos Syndrome. Developed anorexia/restricting (lost 30# in 2 months). Hospitalized in [place] x 3 months. then partial admission in [place] Now home with virtual services. Weight restored- emotionally not so good. Bullying (children and parents- [place]) Other issues with grandma dropping things off [...] ER visits (e.g, 01/2013)- Never saw GI (Yashira) - had clinicals. No diarrhea. Bowels more regular lately with more consistent schedule.Chronic RUQ pain- comes and goes. Less intense but still happens.Even happened at [facility]. Has had extensive w/u and no clear etiology. Previously had less sx when watched diet (on cruise). Pain more with high CHO. -DIZZINESS/VOMITING: In past. -HEADACHES: hx of migraines.12/08: OngoingO'Grenola in pastTwo episodes with exercise- couldn't do [...] with standing in AM. Aryan Gabriel MD [address] [place] [address], [place], [phone] , [facility] 07/01/2024 18:19:06 OBGyn Episode No OBEpisode recorded.
== END 2024-08-26 10:41 | disposition home or self-care (01) ==
LOC: HO.US 10:40
PROVIDERS: PCP Nurse Practitioner Family; Visit Provider Nurse Practitioner Family
DX: R10.2 Pelvic and perineal pain (principal)
CPT/HCPCS: 76830; 76856

== ENCOUNTER → 2024-08-26 10:42 | Outpatient (BNV) | payer OTHER, SELFPAY | PROVIDERS: PCP Nurse Practitioner Family; Visit Provider Radiology Diagnostic Radiology | DX: D25.9 Leiomyoma of uterus, unspecified (principal) | CPT/HCPCS: 76830; 76856 ==

== ENCOUNTER 2024-11-10 15:45 | Outpatient (REF) | payer OTHER, SELFPAY ==
--- OUTSIDE RECORDS SUMMARY | 2024-11-10 16:53 | XMS_ITS | Encounter Summary ---
Author Organization [facility] Address [address] [place] [address] Care Team Providers Care Regional Business Development Manager Name Role Phone Unknown Primary Care Provider [phone] Rich Rosa MD Primary Care Provider [phone] Encounter Details Date Type Department Care Team (Late st Contact Info) Description 08/27/2024 Telephone [facility] [address] [place] [phone] Fifi Lin MD [address] [place] [phone] Social History Tobacco Use Types Packs/Day Years Used Date Smoking Tobacco: Never Assessed Comments Unknown Sex and Gender Information Value Date Recorded Sex Assigned at Female 08/27/2024 11:26 AM EDT Legal Sex Female 6:20 PM EST Gender Identity Female 08/27/2024 11:26 AM EDT Sexual Orientation Heterosexual (straight) 08/27 11:26 AM EDT documented as of this encounter Plan of Treatment Upcoming Encounters Date Type Department Care Team (Late st Contact Info) Description 11/17/2024 3:30 PM EDT Consult [address] [place] [phone] Liliya Rosales MD [address] [place] [phone] 12/01/2024 1:00 PM EDT Procedure visit [address] [phone] 12/01/2024 1:40 PM EDT Office Visit [facility] [address] [place] [phone] 12/09/2024 2:00 PM EDT Evaluation [facility] [address] [place] [address] Albert Ying MD [address] [place], [place] [phone] Husam Holman, PT [address] [facility] [address] [place] [address] 12/23/2024 9:00 AM EDT Treatment [facility] [address] [place] [address] Albert Ying MD [address] [place] [phone] Husam Holman, PT 2 [facility] [address] [place] [address] documented as of this encounter Visit Diagnoses Not on filedocumented in this encounter Care Teams Regional Business Development Manager Relationship Specialty Start Date End Date Unknown Unknow Provider Address PCP - General 08/27/24 09/29/24 Rich Rosa MD [address] [place] [address] PCP - General Family Medicine 09/30/24 documented as of this encounter
--- OUTSIDE RECORDS SUMMARY | 2024-11-10 16:55 | XMS_ITS | Clinical Summary ---
Author Organization [facility] Address [address] [place] [address] Phone Care Team Providers Care Test Fixture Designer Name Role Phone Unavailable Primary Care Provider [...] 01/17/1999 01/16/1999, 12/01/1989, 09/14/1986, Additional history exists HPV Vaccines (1 - 3-dose SCDM series) 12/26/2011 COVID-19 Vaccine ( - 2023- season) 2023 Influenza Vaccines (#1) 2024 02/01/2004 HIB Vaccines Completed 09/11/1987 IPV Vaccines Completed 12/01/1989, 07/03/1986, 07/02/1985, Additional history exists Hepatitis B Vaccines Completed 07/18/1997, 11/24/1996, 09/09/1996 MMR Vaccines Completed 07/18/1997, 09/14/1986 Hepatitis A Vaccines Aged Out No long [...]
--- OUTSIDE RECORDS SUMMARY | 2024-11-10 16:55 | XMS_ITS | Encounter Summary ---
Author Organization [facility] Address [address] [place] [address] Phone Care Team Providers Care Head Automatic Sawyer Name Role Phone Rich Rosa ENDOSCOPE TECHNICIAN Primary Care Provider + Encounter Details Date Type Department Care Team (Late st Contact Info) Description 08/25/2018 Procedure Pass [facility] Cardiac Human Services Care Specialist [address] [facility], [address], [address] [place] [address] Social History Tobacco Use Types Packs/Day Years Used Date Smoking Tobacco: Never Assessed Comments Unknown Sex and Gender Information Value Date Recorded Sex Assigned at Not on file Legal Sex Female 7:18 PM EST Gender Identity Not on file Sexual Orientation Not on file documented as of this encounter Plan of Treatment Not on file documented as of this encounter Visit Diagnoses Not on filedocumented in this encounter Care Teams Head Automatic Sawyer Relationship Specialty Start Date End Date Rich Rosa NP [facility] [place] [address] PCP - General Family Medicine 06/01/18 documented as of this encounter Additional Source Comments The information contained in this document represents components of the legal health record. It is not the complete legal health record.[facility]
--- OUTSIDE RECORDS SUMMARY | 2024-11-10 16:55 | XMS_ITS | Encounter Summary ---
Author Organization [facility] Address [address] [address] Phone Care Team Providers Care Neon Pumper Name Role Phone Rich Rosa NP Primary Care Provider + Reason for Referral * Consultation (Within 1 month) - Closed Specialty Diagnoses / Procedures Referred By Contbisi t Referred To Contact Diagnoses Cardiac abnormality [facility] Cardiology [address] [place] [address] Phone: tel: [facility] CARD [id number] Referral ID Status Reason Start Date Expiration Date Visits Re quested Visits Authorized [id number] Closed 06/09/2018 06/10/2019 1 1 Encounter Details Date Type Department Care Team (Latest Contact Info) Description 06/09/2018 Transcribe Orders [facility] Cardiology [address] [place] [address] Unknown, Unknown, Cardiac abnormality (Primary Dx) Social History Tobacco Use Types Packs/Day Years Used Date Smoking Tobacco: Never Assessed Comments Unknown Sex and Gender Information Value Date Recorded Sex Assigned at Not on file Legal Sex Female 7:18 PM EST Gender Identity Not on file Sexual Orientation Not on file documented as of this encounter Plan of Treatment Scheduled Referrals Name Type Priority Associated Diagnoses Orde r Schedule Ambulatory referral to [facility] Cardiology Outpatient Referral Routine Cardiac abnormality Ordered: 06/09/2018 documented as of this encounter Visit Diagnoses Diagnosis 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 It is not the complete legal health record.[facility]
--- OUTSIDE RECORDS SUMMARY | 2024-11-10 16:55 | XMS_ITS | Clinical Summary ---
Author Organization [facility] Address [address] [facility] [address] [place] [address] Phone Care Team Providers Care Campus Recruiter Name Role Phone Rich Rosa ENTERPRISE RESOURCE PLANNING CONSULTANT Primary Care Provider + Allergies Active Allergy Reactions Criticality Noted Date Comments Latex Hives 08/25/2018 Lisinopril Angioedema 08/25/2018 Social History Tobacco Use Types Packs/Day Years Used Date Smoking Tobacco: Never Assessed Education Answer Date Recorded Are you interested in more education? Not on moise e 07/11/2022 Are you concerned about learning? Not on file 07/11/2022 No 07/11/2022 No 07/11/2022 Digital Access Answer Date Recorded No 08/12/2022 No 08/12/2022 No 08/12/2022 Reliable internet access at home? Not on file 08/12/2022 Device with a working camera? Not on file Comments Unknown Sex and Gender Information Value Date Recorded Sex Assigned at Not on file Legal Sex Female 7:18 PM EST Gender Identity Not on file Sexual Orientation Not on file Last Filed Vital Signs Vital Sign Reading Time Taken Comments Blood Pressure - - Pulse 76 08/25/2018 2:46 PM EDT Temperature - - Respiratory Rate 16 08/25/2018 2:41 PM EDT Oxygen Saturation 97% 08/25/2018 2:46 PM EDT Inhaled Oxygen Concentration - - Weight 76.2 kg (168 lb) 08/25/2018 1:58 PM EDT Height 166.4 cm (5' 5.5 ) 08/25/2018 1:58 PM EDT Body Mass Index 27.53 08/25/2018 1:58 PM EDT Plan of Treatment Health Maintenance Due Date Last Done Comments DEPRESSION SCREENING 1996 SMOKING Hx and SMOKELESS TOBACCO SCREENING 1997 HEPATITIS C SCREENING 2002 HIV ONE-TIME SCREENING (18-65 YEARS) 2002 PAP SMEAR 2005 COVID-19 VACCINE ( season) 2023 04/19/2021, 05/04/2020, 04/06/2020 INFLUENZA VACCINE (#1) 2024 , 01/10/2020, 02/12/2019, Additional history exists Adult Td,Tdap Booster 07/02/2030 07/02/2020 , 11/28/2010, 01/16/1999 HIB VACCINES Completed 09/11/1987 HEPATITIS A VACCINES Aged Out No long er eligible based on patient's age to complete this topic MENINGOCOCCAL VACCINES (ACWY) Aged Out No longer eligible based on patient's age to complete this topic MENINGOCOCCAL VACCINES (B) Aged Out N o longer eligible based on patient's age to complete this topic PNEUMOCOCCAL VACCINES (0-49 years) Aged Out No longer eligible based on patient's age to complete this topic Medical Devices Not on file Insurance UMR UMR R R R [place] [id number] [place] [address] UMR Member Subscriber Plan / Payer (Ef fective 2017-Present) Name:Vanesa Stallings Relation to Subscriber:Self Name:Vanesa Stallings Payer ID:[id number] (NAIC) Type:PPO Address: [place] [id number] Care Teams Campus Recruiter Relationship Specialty Start Date End Date Rich Rosa NP [address] [facility] [place] [address] PCP - General Family Medicine 06/01/18 Additional Source Comments The information contained in this document represents components of the legal health record. It is not the complete legal health record.[facility]
--- OUTSIDE RECORDS SUMMARY | 2024-11-10 16:55 | XMS_ITS | Encounter Summary ---
Author Organization [facility] Address [address] [place] [address] Phone Care Team Providers Care Cut Off Worker Name Role Phone Maria G Garcia MD Primary Care Provider Encounter Details Date Type Department Care Team (Late st Contact Info) Description 10/31/2016 Conversion Encounter [facility] [address] [place] [address] Social History Tobacco Use Types Packs/Day Years [...] on filedocumented in this encounter Care Teams Cut Off Worker Relationship Specialty Start Date End Date Maria G Garcia MD [address] [place] [address] PCP - General 10/25/16 06/27/22 documented as of this encounter
--- OUTSIDE RECORDS SUMMARY | 2024-11-10 16:55 | XMS_ITS | Clinical Summary ---
Author Organization [facility] Address [address] [place] [address] Care Team Providers Care Trapper Bird Name Role Phone Rich Rosa MD Primary Care Provider Allergies Active Allergy Reactions Criticality Noted Date Comments Hydrocodone Hives Medium 09/15/2024 Latex Hives Medium 09/15/2024 Lisinopril Angioedema High 09/15/2024 Shrimp Hives Medium 09/15/2024 Encounters Date Type Department Care Team Description 10/15/2024 Telephone [facility], [address] [place] [phone] Mallory Chavez [place] 10/01/[address] [address] Jessica Price RN 09/22/2024 2:00 PM EDT Telemedicine [address] [phone] Albert Ying MD Flaum, Sheila Dara, DO High-tone pelvic floor dysfunction in female (Primary Dx) 09/22/2024 Travel 09/15/2024 1:00 PM EDT Consult [address] [phone] Yamilka Marinelli MD Contreras, Andrea K, MD Screening procedure (Primary Dx) 09/15/2024 Travel 08/27/2024 Telephone [facility] [address] [place] [phone] Fifi Lin MD 08/27/2024 Telephone [facility] [address] [place] [phone] Austen Rivera RN Appointment (Records received from previous provider seeking appointment) from Last 3 Months Social History Tobacco Use Types Packs/Day Years Used Date Smoking Tobacco: Never Assessed Comments Unknown Sex and Gender Information Value Date Recorded Sex Assigned at Female 08/27/2024 11:26 AM EDT Legal Sex Female 6:20 PM EST Gender Identity Female 08/27/2024 11:26 AM EDT Sexual Orientation Heterosexual (straight) 08/27 11:26 AM EDT Last Filed Vital Signs Vital Sign Reading Time Taken Comments Blood Pressure 120/60 09/15/2024 12:59 PM EDT Pulse 41 09/15/2024 12:59 PM EDT Temperature 36 C (96.8 F) 09/15/2024 12:59 PM EDT Respiratory Rate 14 09/15/2024 12:59 PM EDT Oxygen Saturation 99% 09/15/2024 12:59 PM EDT Inhaled Oxygen Concentration - - Weight 80.8 kg (178 lb 3.2 oz) 09/15/2024 12:59 PM EDT Height 167.6 cm (5' 6 ) 09/15/2024 12:59 PM EDT Body Mass Index 28.76 09/15/2024 12:59 PM EDT Plan of Treatment Upcoming Encounters Date Type Department Care Team (Late st Contact Info) Description 11/17/2024 3:30 PM EDT Consult [address] [place] [phone] Liliya Rosales MD [address] [place] [address] 12/01/2024 1:00 PM EDT Procedure visit [facility] [address] [place] [phone] 12/01/2024 1:40 PM EDT Office Visit [address] [phone] 12/09/2024 2:00 PM EDT Evaluation [facility] [address] [facility] [place] [phone] Albert Ying MD [address] [place] [address] Husam Holman, PT 2 [facility] [address] [place] [address] 12/23/2024 9:00 AM EDT Treatment [facility] [address] [facility] [place] [phone] Albert Ying MD [address] [place] [phone] Husam Holman, PT 2 [facility] [address] [place] [address] Health Maintenance Due Date Last Done Comments Hepatitis C Virus Screening 1984 HIV Screening 1997 DTaP/Tdap/Td Vaccines (1 - Tdap) 12/26/2003 Hepatitis B Vaccines (1 of 3 - 19+ 3-dose series) 12/26/2003 Pap Smear (Ages 21-65) 2005 HPV Vaccines (1 - 3-dose SCD M series) 12/26/2011 COVID-19 Vaccine ( - 2023-2 5 season) 2023 03/20/2021, 05/04/2020 Influenza Vaccine 10/15/2024 12/04/2020, 02/12/2019, 02/01/2004 Pneumococcal Vaccine: Pediatric (0-5 Years) and At-Risk Patients (6 to 49 Years) Aged Out No longer eligible b ased on patient's age to complete this topic [facility] Care Teams Trapper Bird Relationship Specialty Start Date End Date Rich Rosa MD [address] [place] [address] PCP - General Family Medicine 09/30/24
--- OUTSIDE RECORDS SUMMARY | 2024-11-10 16:55 | XMS_ITS | Patient Health Record ---
Author Organization [facility] Address [address] [place] [address] Care Team Providers Care Supervisor Core Shop Name Role Phone Abiel Pinedo MD Primary Care Provider Angelo Gonzales Unavailable [phone] Allergies Allergen (clinical drug ingredient) Drug/Non Drug Allergy documented on EMR Reaction Allergy Type Onset Date Status valsartan Diovan Unknown Drug Allergy Active lisinopril Lisinopril Unknown Drug Allergy Activ e Shrimp Flavor swelling Drug Allergy Act davonte Vicodin Unknown Drug Allergy Active shellfish swelling Drug Allergy Active Reason For Referral No Information Medications Medication SIG (Take, Route, Fr equency, Duration) Notes Start Date End Date Status Multivitamins Active Synthroid 75 MCG 1 tablet on an empty stomach in the morning Orally Once a day; Duration: 30 day(s) Active HumaLOG Active Problems Problem Type SNOMED Code ICD Code Onset Dates Problem Status W/U Status Risk Notes Problem Bursitis (22690857) Bursitis (727.3) Active confirmed Problem Achilles bursitis (386663110) Achilles Tendonitis Bursitis (726.71) Active confirmed Problem Calcaneal spur (31581447) Calcaneal spur (726.73) Active confirmed Problem Type I diabetes mellitus without complication (934747277) Diabetic - IDDM (250.01) Active confirmed Problem Metatarsalgia (45607707) Metatarsalgia (726.70) Active confirmed Problem Myositis (34492587) Myositis (729.1) Active confirmed Problem Pain in limb (00623230) Pain in Limb (729.5) Active confirmed Problem Plantar fasciitis (222372453) Plantar Fasciitis (728.71) Active confirmed Problem Tailors bunion (0015792) Tailors Bunion (727.1) Active confirmed Plan Of Treatment Pending Test Test Name Order Date X ray : Foot, right 3V 12/06/2011 X ray : Foot, right 3V 07/07/2012 [id number] TENDON SHEATH/LIGAMENT 1 05/04/[id number] TENDON SHEATH/LIGAMENT 0 03/27/2012 Insurance Providers Payer Name Payer Address Payer Phone Subscriber Number Group Number Insured Name Patient Relationship to Insured Coverage Start Date Coverage End Date Blue Benefits [address] [address] [place] [address] [id number] Vanesa Urban Self - patient is the insured Medical (General) History Medical History History ICD Code diabetic chicken pox thyroid disorder Surgical History Surgery Date(Month/Year) ankle surgery tumor removal 2004 Hospitalization History Reason Date(Month/Year) Childbirth at [facility] 07/23/2011
[2024-11-10 17:56] LABS: MANUAL DIFF FLAG NO
[2024-11-10 18:25] LABS: Hematocrit 43.8 % (37.0-47.0); Hemoglobin 14.7 g/dl (12.0-16.0); Imm Gran Abs Auto 0.04 X10*3/uL (0.00-0.03); Imm Gran Pct Auto 0.5 % (0.0-0.4); Lymphocytes Absolute Auto 2.2 X10*3/uL (1.2-4.9); Mean Corpuscular HGB Conc 33.6 g/dl (31.0-35.0); Mean Corpuscular Hemoglobin 29.9 pg (27.0-33.0); Mean Corpuscular Volume 89.0 fL (80.0-98.0); NRBC Abs Auto 0.000 X10*3/uL (0.0-0.012); NRBC Pct Auto 0.0 /100WBC (0.0-0.2); Platelet Count 253 X10*3/uL (160-400); Red Blood Count 4.92 X10*6/uL (4.20-5.50); White Blood Count 8.1 X10*3/uL (4.8-10.8)
[2024-11-10 19:19] LABS: Carcinoembryonic Antigen 4.30 ng/mL
[2024-11-10 19:32] LABS: Folate 11.1 ng/mL (> or = 4.0); Vitamin B12 1016 pg/mL (200-900)
[2024-11-11 10:37] LABS: Alanine Aminotransferase 24 U/L (0-31); Albumin Level 4.9 g/dL (3.5-5.0); Alkaline Phosphatase 73 U/L (39-117); Amylase 73 U/L (28-100); Anion Gap 11 (12-20); Aspartate Amino Transferase 29 U/L (5-31); Blood Urea Nitrogen 22 mg/dL (9-16); Calcium 9.6 mg/dL (8.4-10.2); Carbon Dioxide 28 mmol/L (22-29); Chloride 102 mmol/L (96-108); Estimated Glomerular Filt Rate > 60; Lipase 21 U/L (8-78); Potassium 3.8 mmol/L (3.3-5.1); Sodium 137 mmol/L (135-145); Total Protein 7.4 g/dL (6.5-8.0)
[2024-11-11 10:49] LABS: HBS Num1 352.67 mIU/mL (0-7.99); HBc Num1 0.05 S/CO (0.00-0.79); HBsAGNum1 0.51 S/CO (0.00-0.99); Hepatitis A Antibody IgM 0.19 Index (0-0.79); Hepatitis B Surface Antigen Negative (Negative); ~HepC Num1 0.10 S/CO (0.00-0.79); ~Hepatitis A Antibody IgM Nonreactive (Nonreactive); ~Hepatitis B Surface Antibody REACTIVE (Nonreactive); ~Hepatitis C Antibody Nonreactive (Nonreactive)
[2024-11-11 19:43] LABS: Immunoglobulin A 168 mg/dL (47-310)
[2024-11-17 11:30] LABS: HLA B27 Positive (Negative)
[2024-11-17 18:33] LABS: Anti Nuclear Antibody Pattern Nuclear, Speckled; Anti Nuclear Antibody Screen POSITIVE (NEGATIVE); Anti Nuclear Antibody Titer 1:80 titer
== END 2024-11-10 15:46 | disposition home or self-care (01) ==
LOC: HO.WFDLDS 15:45
PROVIDERS: Visit Provider Nurse Practitioner Family
DX: E55.9 Vitamin D deficiency, unspecified (principal); E03.9 Hypothyroidism, unspecified; E11.9 Type 2 diabetes mellitus without complications; R53.83 Other fatigue; R19.7 Diarrhea, unspecified; Z01.84 Encounter for antibody response examination; Z11.3 Encounter for screening for infections with a predominantly sexual mode of transmission; Z11.8 Encounter for screening for other infectious and parasitic diseases
CPT/HCPCS: 36415; 80053; 82150; 82306; 82378; 82607; 82746; 82784; 83690; 84443; 85025; 85652; 86038; 86039; 86140; 86231; 86364; 86704; 86706; 86709; 86803; 86812; 87340

== ENCOUNTER 2024-11-12 11:46 | Outpatient (REF) | payer OTHER, SELFPAY ==
--- OUTSIDE RECORDS SUMMARY | 2024-11-12 12:46 | XMS_ITS | Encounter Summary ---
Author Organization [facility] Address [address] [place] [address] Phone Care Team Providers Care Administrative And Program Specialist Name Role Phone Rich Rosa WAREHOUSE ASSOCIATE Primary Care Provider + Encounter Details Date Type Department Care Team (Late st Contact Info) Description 08/25/2018 Procedure Pass [facility] Cardiac Speech Language Pathologist Assistant [address] [facility], [address], [address] [place] [address] Social History Tobacco Use Types [...] on filedocumented in this encounter Care Teams Administrative And Program Specialist Relationship Specialty Start Date End Date Rich Rosa NP [facility] [place] [address] PCP - General Family Medicine 06/01/18 documented as of this encounter Additional Source Comments The information contained in this document represents components of the legal health record. It is not the complete legal health record.[facility]
--- OUTSIDE RECORDS SUMMARY | 2024-11-12 12:46 | XMS_ITS | Clinical Summary ---
Author Organization [facility] Address [address] [place] [address] Care Team Providers Care Physical Science Aide Name Role Phone Rich Rosa MD Primary Care Provider [phone] Allergies Active Allergy Reactions Criticality Noted Date Comments Hydrocodone Hives Medium 09/15/2024 Latex Hives Medium 09/15/2024 Lisinopril Angioedema High 09/15/2024 Shrimp Hives Medium 09/15/2024 Encounters Date Type Department Care Team Description 10/15/2024 Telephone [facility], [address] [place] [phone] Mallory Chavez MA 10/01/[address] [phone] Jessica Price RN 09/22/2024 2:00 PM EDT Telemedicine [address] [address] Albert Ying MD Flaum, Sheila Dara, DO High-tone pelvic floor dysfunction in female (Primary Dx) 09/22/2024 Travel 09/15/2024 1:00 PM EDT Consult [address] [phone] Yamilka Marinelli MD Contreras, Andrea K, MD Screening procedure (Primary Dx) 09/15/2024 Travel 08/27/2024 Telephone [facility] Services [address] [place] [phone] Fifi Lin MD 08/27/2024 Telephone [facility] [address] [place] [phone] Austen Rivera RN Appointment (Records received [...] Info) Description 11/17/2024 3:30 PM EDT Consult [address] [place] [phone] Liliya Rosales MD [address] [place] [address] 12/01/2024 1:00 PM EDT Procedure visit [facility] [address] [place] [phone] 12/01/2024 1:40 PM EDT Office Visit [address] [phone] 12/09/2024 2:00 PM EDT Evaluation [facility] [address] [place] [phone] Albert Ying MD [address] [place] [address] Husam Holman, PT [address] [facility] [address] [place] [address] 12/23/2024 9:00 AM EDT Treatment [facility] [address] [place] [phone] Albert Ying MD [address] [place] [phone] Husam Holman, PT [address] [facility] [address] [place] [address] Health Maintenance Due Date Last Done Comments [...] patient's age to complete this topic Insurance [facility] Care Teams Physical Science Aide Relationship Specialty Start Date End Date Rich Rosa MD [address] [place] [address] PCP - General Family Medicine 09/30/24
--- OUTSIDE RECORDS SUMMARY | 2024-11-12 12:46 | XMS_ITS ---
Author Name [facility] Organization Unknown Allergies Allergen Reaction Severity Comment Documented Date Source Statu s HYDROCODONE HIVES 09/15/2024 CCT active LATEX HIVES 09/15/2024 CCT active LISINOPRIL ANGIOEDEMA 09/15/2024 CCT active SHRIMP HIVES 09/15/2024 [facility] active Problems Problem Status Onset Date Problem Type Date of Resoluti on Source High-tone pelvic floor dysfunction in female active EncounterDiagnosisAct [facility] Encounters Encounter Type Encounter Reason Primary Diagnosis Location Date Ambulatory Other specified disorders of muscle Other specified disorders of muscle [employer] [employer] 09/22/2024 Ambulatory Encounter for screening, unspecified Encounter for screening, unspecified [facility] 09/15/2024 Care Team Organization Name Specialty Phone Email Start Date End Da te [employer] DENIZ LAWRENCE Primary Care 09/30/2024 [employer] 09/15/2024 10/21/2024 [employer] 08/28/2024
--- OUTSIDE RECORDS SUMMARY | 2024-11-12 12:46 | XMS_ITS | Patient Health Record ---
Author Organization [facility] Address [address] [place] [address] Care Team Providers Care Shell Molder Name Role Phone Abiel Pinedo MD Primary Care Provider Angelo Gonzales Unavailable [phone] Allergies Allergen (clinical drug ingredient) Drug/Non Drug [...] Status W/U Status Risk Notes Problem Bursitis (10283327) Bursitis (727.3) Active confirmed Problem Achilles bursitis (963967752) Achilles Tendonitis Bursitis (726.71) Active confirmed Problem Calcaneal spur (81226736) Calcaneal spur (726.73) Active confirmed Problem Type I diabetes mellitus without complication (350544865) Diabetic - IDDM (250.01) Active confirmed Problem Metatarsalgia (70484642) Metatarsalgia (726.70) Active confirmed Problem Myositis (09603763) Myositis (729.1) Active confirmed Problem Pain in limb (95424303) Pain in Limb (729.5) Active confirmed Problem Plantar fasciitis (237573665) Plantar Fasciitis (728.71) Active confirmed Problem Tailors bunion (2396658) Tailors Bunion (727.1) Active confirmed Plan Of Treatment Pending Test Test Name Order Date X ray : Foot, right 3V 12/06/2011 X ray : Foot, right 3V 07/07/2012 [id number] TENDON SHEATH/LIGAMENT 1 05/04/[id number] TENDON SHEATH/LIGAMENT 0 03/27/2012 Insurance Providers Payer Name Payer Address Payer Phone Subscriber Number Group Number Insured Name Patient Relationship to Insured Coverage Start Date Coverage End Date Blue Benefits [address] [address] [place] [address] [id number] Vanesa Urban Self - patient is the insured Medical (General) History Medical History History ICD Code diabetic chicken pox thyroid disorder Surgical History Surgery Date(Month/Year) ankle surgery tumor removal 2004 Hospitalization History Reason Date(Month/Year) Childbirth at [facility] 07/23/2011
--- OUTSIDE RECORDS SUMMARY | 2024-11-12 12:46 | XMS_ITS | Encounter Summary ---
Author Organization [facility] Address [address] [place] [address] Care Team Providers Care Barbering Instructor Name Role Phone Unknown Primary Care Provider [phone] Rich Rosa MD Primary Care Provider [phone] Encounter Details Date Type Department Care Team (Late st Contact Info) Description 08/27/2024 Telephone [facility] [address] [place] [phone] Fifi Lin MD [address] [place] [phone] Social History Tobacco Use Types Packs/Day Years [...] Info) Description 11/17/2024 3:30 PM EDT Consult [address] [place] [phone] Liliya Rosales MD [address] [place] [phone] 12/01/2024 1:00 PM EDT Procedure visit [address] [phone] 12/01/2024 1:40 PM EDT Office Visit [facility] [address] [place] [phone] 12/09/2024 2:00 PM EDT Evaluation [facility] [address] [facility] [place] [address] Albert Ying MD [address] [place], [place] [phone] Husam Holman, PT 2 [facility] [address] [place] [address] 12/23/2024 9:00 AM EDT Treatment [facility] [address] [facility] [place] [address] Albert Ying MD [address] [place] [phone] Husam Holman, PT 2 [facility] [address] [place] [address] documented as of this encounter Visit Diagnoses Not on filedocumented in this encounter Care Teams Barbering Instructor Relationship Specialty Start Date End Date Unknown Unknow Provider Address PCP - General 08/27/24 09/29/24 Rich Rosa MD [address] [place] [address] PCP - General Family Medicine 09/30/24 documented as of this encounter
--- OUTSIDE RECORDS SUMMARY | 2024-11-12 12:46 | XMS_ITS | Encounter Summary ---
Author Organization [facility] Address [address] [place] [address] Phone Care Team Providers Care Cnc Wood Lathe Operator Name Role Phone Maria G Garcia MD Primary Care Provider Encounter Details Date Type Department Care Team (Late st Contact Info) Description 10/31/2016 Conversion Encounter [facility] [address] [place] [address] Social History Tobacco Use Types Packs/Day Years [...] on filedocumented in this encounter Care Teams Cnc Wood Lathe Operator Relationship Specialty Start Date End Date Maria G Garcia MD [address] [place] [address] PCP - General 10/25/16 06/27/22 documented as of this encounter
--- OUTSIDE RECORDS SUMMARY | 2024-11-12 12:46 | XMS_ITS | Clinical Summary ---
Author Organization [facility] Address [address] [employer] [facility] [address] [place] [address] Phone Care Team Providers Care Physics Department Chair Name Role Phone Rich Rosa DUMPCART DRIVER Primary Care Provider + Allergies Active Allergy [...] file Insurance UMR [place] R R [place] [id number] [place] [address] UMR Member Subscriber Plan / Payer (Ef fective 2017-Present) Name:Vanesa Stallings Relation to Subscriber:Self Name:Vanesa Stallings Payer ID:[id number] (NAIC) Type:PPO Address: [place] [phone] Care Teams Physics Department Chair Relationship Specialty Start Date End Date Rich Rosa NP [address] [facility] [place] [address] PCP - General Family Medicine 06/01/18 Additional Source Comments The information contained in this document represents components of the legal health record. It is not the complete legal health record.[facility]
--- OUTSIDE RECORDS SUMMARY | 2024-11-12 12:46 | XMS_ITS | Encounter Summary ---
Author Organization [facility] Address [address] [address] Phone Care Team Providers Care Staff Certified Nurse Midwife Name Role Phone Rich Rosa NP Primary Care Provider + Reason for Referral * Consultation (Within 1 month) - Closed Specialty Diagnoses / Procedures Referred By Contbisi t Referred To Contact Diagnoses Cardiac abnormality [facility] [address] [place] [address] Phone: tel: [facility] CARD [id number] Referral ID Status Reason Start Date Expiration Date Visits Re quested Visits Authorized [id number] Closed 06/09/2018 06/10/2019 1 1 Encounter Details Date Type Department Care Team (Latest Contact Info) Description 06/09/2018 Transcribe Orders [facility] [address] [place] [address] Unknown, Unknown, Cardiac abnormality (Primary Dx) Social [...] Diagnoses Orde r Schedule Ambulatory referral to [facility] Outpatient Referral Routine Cardiac abnormality Ordered: 06/09/2018 documented as of this encounter Visit Diagnoses Diagnosis 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 It is not the complete legal health record.[facility]
--- OUTSIDE RECORDS SUMMARY | 2024-11-12 12:46 | XMS_ITS | Clinical Summary ---
Author Organization [facility] Address [address] [place] [address] Phone Care Team Providers Care Brim Cutter Name Role Phone Unavailable Primary Care Provider [...]
[2024-11-19 18:28] LABS: Calprotectin, Fecal 19 mcg/g
== END 2024-11-12 11:47 | disposition home or self-care (01) ==
LOC: HO.LNP 11:46
PROVIDERS: Visit Provider Nurse Practitioner Family
DX: E11.9 Type 2 diabetes mellitus without complications (principal); E55.9 Vitamin D deficiency, unspecified; E03.9 Hypothyroidism, unspecified; R53.83 Other fatigue; R19.7 Diarrhea, unspecified
CPT/HCPCS: 83993

== ENCOUNTER 2024-11-29 09:17 | Outpatient (REF) | payer OTHER, SELFPAY ==
--- OUTSIDE RECORDS SUMMARY | 2024-11-26 06:56 | XMS_ITS | Encounter Summary ---
Author Organization [facility] Address [address] [place] [address] Care Team Providers Care Dock Associate Name Role Phone Rich Rosa MD Primary Care Provider [phone] Reason for Visit * Auth/Cert (Routine) Specialty Diagnoses / Procedures Referred By Judy t Referred To Contact Diagnoses Abdominal pain, unspecified abdominal location Early satiety Anorexia Elevated CEA Change in bowel function Procedures COLONOSCOPY ENDOSCOPY UPPER Referral ID Status Reason Start Date Expiration Date Visits Re quested Visits Authorized [id number] 1 1 Encounter Details Date Type Department Care Team (Latest Contact Info) Description 11/26/2024 6:56 AM EDT - 11/26/2024 11:59 PM EDT Hospital Encounter [facility] [address] [place] [phone] Liliya Rosales MD [address] [place] [address] Discharge Disposition: Home or Self Care Social History Tobacco Use Types Packs/Day Years Used Date Smoking Tobacco: Never Smokeless Tobacco: Never Tobacco Cessation:Counseling Given: Not Answered Alcohol Use Standard Drinks/Week Comments Yes 0 (1 standard drink = 0.6 oz pur e alcohol) social drinker Comments No Sex and Gender Information Value Date Recorded Sex Assigned at Female 08/27/2024 11:26 AM EDT Legal Sex Female 6:20 PM EST Gender Identity Female 08/27/2024 11:26 AM EDT Sexual Orientation Heterosexual (straight) 08/27 11:26 AM EDT documented as of this encounter Last Filed Vital Signs Vital Sign Reading Time Taken Comments Blood Pressure 111/63 11/26/2024 9:44 AM EDT Pulse 54 11/26/2024 9:44 AM EDT Temperature 36.4 C (97.6 F) 11/26/2024 9:14 AM EDT Respiratory Rate 18 11/26/2024 9:44 AM EDT Oxygen Saturation 94% 11/26/2024 9:44 AM EDT Inhaled Oxygen Concentration - - Weight - - Height - - Body Mass Index - - documented in this encounter Medications at Time of Discharge amphetamine-dextroa mphetamine (ADDERALL) 5 MG tablet TAKE ONE TABLET BY MOUTH TWICE A DAY FOR ADD. TAKE DOSES AT LEAST 4-6 HOURS APART butalbital-acetamin ophen-caffeine (FioriCET, ESGIC) 50-325-40 mg tablet Take 1 tablet by mouth as needed. insulin glargine (Lantus SoloStar) 100 units/mL prefilled pen injection Inject 24 units by subcutaneous route daily as directed if insulin pump malfunctions. insulin lispro (HumaLOG KWIKPEN) 100 UNIT/ML prefilled pen injection inject up to 15 units daily by subcutaneous route as directed if insulin pump malfunctions levothyroxine (SYNTHROID, LEVOTHROID) 75 MCG tablet Take 75 mcg by mouth. loratadine (CLARITIN) 10 MG tablet Take 10 mg by mouth. Multiple Vitamin (MULTIVITAMINS PO) Multivitamins ondansetron (ZOFRAN-ODT) 8 MG disintegrating tablet DISSOLVE 1 TABLET ON TONGUE ONCE A DAY NEEDED drqmnn-wwiauhxxy-rq gnesium sulfates (Suprep Bowel Prep Kit) 17.5-3.13-1.6 GM/177ML Solution solutionIndications :Abdominal pain, unspecified abdominal location Take two 177 mL bottles as directed 2 each documented as of this encounter H&P Notes * Liliya Rosales MD - 11/26/2024 6:56 AM EDT PRE PROCEDURE H&P PROCEDURE: EGD / COLONOSCOPY CHIEF COMPLAINT: SEE HPI HPI: Patient is a 38 y.o. year old female here for egd/colo for abd pain, bloating, anorexia, earlysatiety; colo for elevated CEA, change in bowel habits; seen 11/17/24 - see notes Past Medical History: Diagnosis Date Constipation Diabetes mellitus (HCC) Disease of thyroid gland Hemorrhoid Pelvic pain PONV (postoperative nausea and vomiting) Skin cancer 2023 Swelling Family History Problem Relation Age of Onset Cancer, other Mother Thyroid Autoimmune disease Mother Heart attack Mother Cancer, other Maternal Grandmother skin Autoimmune disease Maternal Grandfather Stroke Paternal Grandmother Alcohol abuse Sister Autoimmune disease Sister Laurence Diabetes Sister Prostate cancer Paternal Uncle Social History Socioeconomic History Marital status: Other Spouse name: Not on file Number of children: Not on file Years of education: Not on file Highest education level: Not on file Occupational History Not on file Tobacco Use Smoking status: Never Smokeless tobacco: Never Substance and Sexual Activity Alcohol use: Yes Comment: social drinker Drug use: Never Sexual activity: Yes Partners: Male control/protection: Surgical Other Topics Concern Not on file Social History Narrative Not on file Social Drivers of Health Financial Resource Strain: Not on file Food Insecurity: Not on file Transportation Needs: Not on file Physical Activity: Not on file Stress: Not on file Social Connections: Not on file Housing Stability: Not on file Allergies[1] Scheduled Meds: Continuous Infusions: sodium chloride, 150 mL/hr PRN Meds: Prescriptions Prior to Admission[2] BP 137/79 Pulse 73 Temp 97.8 ??F (36.6 ??C) (Temporal) Resp 16 LMP 11/16/2024 (Approximate) SpO2 100% Examination Eyes: no icterus ENT: No lymphadneopathy CVS: RRR Abdomen: soft, NT, ND, BS + Extremities: no c/c/e Neuro: AAO X 3, no asterixis. IMPRESSION: as above PLAN: Proceed with planned procedure ASA per anesthesia EGD / Colonoscopy. The risks and benefits to procedure as recommended were carefully explained to the patient. The potential risks include but are not limited to cardiopulmonary complications, perforation, surrounding organ injury, bleeding, infection, missed lesions, interval cancer, incomplete exam and . [1] Allergies Allergen Reactions Lisinopril Angioedema Hydrocodone Hives Latex Hives Shrimp Hives [2] (Not in a hospital admission) documented in this encounter Plan of Treatment Upcoming Encounters Date Type Department Care Team (Late st Contact Info) Description 12/01/2024 1:00 PM EDT Procedure visit [facility] [address] [place] [phone] 12/01/2024 1:40 PM EDT Office Visit [facility] [address] [place] [phone] 12/09/2024 2:00 PM EDT Evaluation [facility] [address] [place] [phone] Albert Ying MD [address] [place] [address] Husam Holman, PT [facility] [address] [place] [address] 12/23/2024 9:00 AM EDT Treatment [facility] [address] [place] [phone] Albert Ying MD [address] [place] [address] Husam Holman, PT [facility] [address] [place] [address] documented as of this encounter Procedures Procedure Name Priority Date/Time Associated Diagnosis Comments POCT GLUCOSE, FINGERSTICK (CHARGE) Routine 11/26/2024 9:23 AM EDT ENDOSCOPY UPPER 11/26/2024 8:28 AM EDT Abdominal pain, unspecified abdominal location Early satiety Anorexia Elevated CEA Change in bowel function Special Needs Pre & Post FS- insulin pump COLONOSCOPY 11/26/2024 8:28 AM EDT Abdominal pain, unspecified abdominal location Early satiety Anorexia Elevated CEA Change in bowel function Special Needs Pre & Post FS- insulin pump POCT GLUCOSE, FINGERSTICK (CHARGE) Routine 11/26/2024 7:51 AM EDT documented in this encounter Results * POCT Glucose, Fingerstick - Post Procedure (11/26/2024 9:23 AM EDT) POC Glucose 136 MG/DL Lot Number [id number] [employer] Pass Pass Blood 11/26/2024 9:23 AM EDT [facility] POINT OF CARE TEST ORDERABLES Final Result * POCT Glucose, Fingerstick - Pre Procedure (11/26/2024 7:51 AM EDT) POC Glucose 197 MG/DL Lot Number [id number] [employer] Pass Pass Blood 11/26/2024 7:51 AM EDT [facility] POINT OF CARE TEST ORDERABLES Final Result documented in this encounter Visit Diagnoses Not on filedocumented in this encounter Administered Medications Inactive Administered Medications - up to 1 most recent administrations Medication Order MAR Action Action Date Dose Rate Site sodium chloride 0.9% (NS) infusion 150 mL/hr, Intravenous, Continuous, Starting on Fri11/26/24 at 0800, Pre-Procedure (GI), May adjust as needed. New Bag 11/26/2024 7:51 AM EDT 150 mL/hr 150 mL/hr documented in this encounter Care Teams Dock Associate Relationship Specialty Start Date End Date Rich Rosa MD [address] [place] [address] PCP - General Family Medicine 09/30/24 documented as of this encounter
--- OUTSIDE RECORDS SUMMARY | 2024-11-26 08:00 | XMS_ITS | Encounter Summary ---
Author Organization [facility] Address [address] [place] [address] Care Team Providers Care Railroad Conductor Name Role Phone Rich Rosa MD Primary Care Provider Reason for Visit * Auth/Cert (Routine) Specialty Diagnoses / Procedures Referred By Judy t Referred To Contact Diagnoses Abdominal pain, unspecified abdominal location Early satiety Anorexia Elevated CEA Change in bowel function Procedures COLONOSCOPY ENDOSCOPY UPPER Referral ID Status Reason Start Date Expiration Date Visits Re quested Visits Authorized [id number] 1 1 Encounter Details Date Type Department Care Team (Late st Contact Info) Description 11/26/2024 8:00 AM EDT - 11/26/2024 8:45 AM EDT Surgery [facility] END[facility] PROC [facility] [address] [place] [phone] Liliya Rosales MD [address] [place] [address] COLONOSCOPY Social History Tobacco Use Types Packs/Day Years [...] Sign Reading Time Taken Comments Blood Pressure 137/79 11/26/2024 7:42 AM EDT Pulse 73 11/26/2024 7:42 AM EDT Temperature 36.6 C (97.8 F) 11/26/2024 7:42 AM EDT Respiratory Rate 16 11/26/2024 7:42 AM EDT Oxygen Saturation 100% 11/26/2024 7:42 AM EDT Inhaled Oxygen Concentration - - [...] TABLET ON TONGUE ONCE A DAY NEEDED yvbugv-dovenwclc-ur gnesium sulfates (Suprep Bowel Prep Kit) 17.5-3.13-1.6 [...] Description 12/01/2024 1:00 PM EDT Procedure visit [facility] [address] [place] [phone] 12/01/2024 1:40 PM EDT Office Visit [facility] [address] [place] [phone] 12/09/2024 2:00 PM EDT Evaluation [facility] [address] [place] [phone] Albert Ying MD [address] [place] [address] Husam Holman, PT [address] [facility] [address] [place] [address] 12/23/2024 9:00 AM EDT Treatment [facility] [address] [facility] [place] [phone] Albert Ying MD [address] [place] [phone] Husam Holman, PT [address] [facility] [address] [place] [address] documented as of this encounter Procedures Procedure [...] POC Glucose 136 MG/DL Lot Number [id number] Burlap Worker Pass Pass Blood 11/26/2024 9:23 AM EDT [facility] POINT OF CARE TEST ORDERABLES Final Result * POCT Glucose, Fingerstick - Pre Procedure (11/26/2024 7:51 AM EDT) POC Glucose 197 MG/DL Lot Number [id number] [employer]url[employer] Work[employer] Pass Pass Blood 11/26/2024 7:51 AM EDT [facility] POINT OF CARE TEST ORDERABLES Final Result documented in this encounter Visit Diagnoses Diagnosis Abdominal pain, unspecified abdominal location Early satiety Anorexia Elevated CEA Elevated carcinoembryonic antigen [CEA] Change in bowel function documented in this encounter Administered Medications Inactive Administered Medications - up to 1 most recent administrations Medication Order MAR Action Action Date Dose Rate Site sodium chloride 0.9% (NS) infusion 150 mL/hr, Intravenous, Continuous, Starting on Fri11/26/24 at 0800, Pre-Procedure (GI), May adjust as needed. New Bag 11/26/2024 7:51 AM EDT 150 mL/hr 150 mL/hr documented in this encounter Care Teams Railroad Conductor Relationship Specialty Start Date End Date Rich Rosa MD [address] [place] [address] PCP - General Family Medicine 09/30/24 documented as of this encounter
--- OUTSIDE RECORDS SUMMARY | 2024-11-26 08:28 | XMS_ITS | Encounter Summary ---
Author Organization [facility] Address [address] [place] [address] Care Team Providers Care Application Support Developer Name Role Phone Rich Rosa MD Primary Care Provider Encounter Details Date Type Department Care Team (Late st Contact Info) Description 11/26/2024 8:28 AM EDT Anesthesia Event [facility] ENDO PROC [facility] [address] [place] [phone] Jess Benson MD [address] [place] [address] Anesthesia Record Procedure Summary Procedure Name Responsible Anesthesiologist Anesthesia Start Time Anesthesia Stop Time COLONOSCOPY (Anus) Events Date Time Event Comment 11/26/2024 0959 Case Charted on Paper Which portion(s) of your chart were completed on paper? {Anesthesia Record Portion:[id number]} Why did you use paper? {Anesthesia Paper Reason:[id number]} Meds * Agents No agents on file. * Blood No blood administrations on file. Lines, Drains, and Airways No LDAs on file. documented in this encounter Social History Tobacco Use Types Packs/Day Years Used Date Smoking Tobacco: Never Smokeless Tobacco: Never Alcohol Use Standard Drinks/Week Comments Yes 0 (1 standard drink = 0.6 oz pur e alcohol) social drinker Comments No Sex and Gender Information Value Date Recorded Sex Assigned at Female 08/27/2024 11:26 AM EDT Legal Sex Female 6:20 PM EST Gender Identity Female 08/27/2024 11:26 AM EDT Sexual Orientation Heterosexual (straight) 08/27 11:26 AM EDT documented as of this encounter OR Notes * Anesthesia Preprocedure Evaluation - Jess M Kestur Vernon, MD - 11/26/2024 7:52 AM EDT Department of Anesthesiology Pre-Procedure Evaluation Patient Name: Vanesa Urban : 1985 Admission Date: 11/26/2024 Attending Provider: Liliya Rosales MD Date of Service: 11/26/2024 Scheduled Procedure: COLONOSCOPY, N/A - Anus ENDOSCOPY UPPER, N/A - Mouth Pre-operative Diagnosis: * No pre-op diagnosis entered * Relevant Problems No relevant active problems Allergies[1] No data recorded Patient summary reviewed. Nursing notes reviewed. ECG reviewed. Pre-procedure vital signs reviewed. NPO status verified. General History of anesthetic complications - History of PONV Respiratory - negative ROS Cardiovascular - negative cardiac ROS and negative vascular ROS Positives: Exercise tolerance: >4 METS Neuromuscular - negative neuro/psych ROS GI/Hepatic/Renal - negative GI/Hepatic/Renal/ ROS Positives: PONV Endo/MET - negative ROS Positives: diabetes mellitus type 1 using insulin hypothyroidism Hem/Lymph - negative hem/lymph ROS Skel/Skin - negative skel/skin ROS Psych HEENT Obstetrics Other Syndromes Physical Exam Airway Mallampati II Dentition - no notable dental history normal rate regular rhythm Pulmonary - pulmonary exam normal Abdominal Past Medical History: Diagnosis Date ??? Constipation ??? Diabetes mellitus (HCC) ??? Disease of thyroid gland ??? Hemorrhoid ??? Pelvic pain ??? PONV (postoperative nausea and vomiting) ??? Skin cancer 2023 ??? Swelling Past Surgical History: Procedure Laterality Date ??? ANKLE SURGERY ??? BREAST SURGERY 2012 ??? ENDOSCOPY Family History Problem Relation Age of Onset ??? Cancer, other Mother Thyroid ??? Autoimmune disease Mother ??? Heart attack Mother ??? Cancer, other Maternal Grandmother skin ??? Autoimmune disease Maternal Grandfather ??? Stroke Paternal Grandmother ??? Alcohol abuse Sister ??? Autoimmune disease Sister Laurence ??? Diabetes Sister ??? Prostate cancer Paternal Uncle Tobacco/Alcohol/Drug HX[2] Ht Readings from Last 1 Encounters: 11/17/24 1.676 m (5' 6 ) Wt Readings from Last 1 Encounters: 11/17/24 78.9 kg (174 lb) There is no height or weight on file to calculate BMI. No results found for: WBC , HGB , HCT , PLT , NA , K , CO2 , CL , GLUC , BUN , CREAT , CALCIUM , ABORH , INR , PROTIME , PTT No results found for: ABORH , TYPE , SCREEN No results found for this or any previous visit (from the past 8760 hours). NPO Status: Date of Last Liquid Consumption: 11/25/24 Time of Last Liquid Consumption: 1030 Date of Last Solid Consumption: 11/24/24 Time of Last Solid Consumption: 1800 Anesthesia Plan ASA Score: ASA 2 Consent: The anesthetic plan and associated risks was discussed with patient. Anesthesia Plan: MAC anesthesia The plan was discussed with the following care providers: CERTIFIED CODER. Attending Note I personally evaluated and examined the patient prior to the intra-operative phase of care. Jess Flores MD [1] Allergies Allergen Reactions ??? Lisinopril Angioedema ??? Hydrocodone Hives ??? Latex Hives ??? Shrimp Hives [2] Tobacco/Alcohol/Drug HX Tobacco Use ??? Smoking status: Never ??? Smokeless tobacco: Never Substance Use Topics ??? Alcohol use: Yes Comment: social drinker ??? Drug use: Never documented in this encounter Plan of Treatment Upcoming Encounters Date Type Department Care Team (Late st Contact Info) Description 12/01/2024 1:00 PM EDT Procedure visit [facility] [address] [place] [phone] 12/01/2024 1:40 PM EDT Office Visit [address] [phone] 12/09/2024 2:00 PM EDT Evaluation [address] [place] [address] Albert Ying MD [address] [place] [address] Husam Holman, PT 2 [facility] [address] [place] [address] 12/23/2024 9:00 AM EDT Treatment [address] [place] [phone] Albert Ying MD [address] [place] [address] Husam Holman, PT 2 [facility] [address] [place] [address] documented as of this encounter Visit Diagnoses Not on filedocumented in this encounter Care Teams Application Support Developer Relationship Specialty Start Date End Date Rich Rosa MD [address] [place] [address] PCP - General Family Medicine 09/30/24 documented as of this encounter
--- NOTE | ~2024-11-29 | MR_ITS ---
EXAMINATION: MR ABDOMEN WITHOUT THEN WITH IV CONTRAST, MR PELVIS WITHOUT THEN WITH IV CONTRAST HISTORY: ENTEROGRAPHY ABD PAIN CHANGE IN BOWELS COMPARISON: There are no prior studies available for comparison. TECHNIQUE: Axial in and out of phase T1-weighted gradient echo, axial diffusion weighted, and axial and coronal HASTE T2 with fat saturation images were obtained through the abdomen. Subsequently, fat suppressed axial and coronal T1-weighted images were obtained after the intravenous administration of 7 mL Gadavist. The patient received oral contrast material. FINDINGS: Liver: There is no loss of signal intensity in the liver on opposed phase imaging to suggest steatosis. The hepatic and portal veins are patent. There is no intrahepatic biliary dilatation. Gallbladder/biliary tree: No gallstones are identified. The common bile duct is normal in caliber. No intraluminal filling defects are identified to suggest choledocholithiasis. Spleen: The spleen is unremarkable. Pancreas: The pancreas is unremarkable. The pancreatic duct is normal in caliber. Adrenals: The adrenal glands are unremarkable. Kidneys: The kidneys are unremarkable. There is no hydronephrosis. Lymph nodes: There is no retroperitoneal lymphadenopathy in the upper abdomen. Fluid: There is no ascites in the upper abdomen. Visualized bowel: Initially, all the oral contrast was in the stomach. Subsequently, the patient vomited. There is minimal contrast within small bowel loops. There is no abnormal bowel hyperenhancement. Evaluation for peristalsis is limited by lack of distention. There is a large amount of stool throughout the colon. Visualized bones: The visualized bones demonstrate normal marrow signal intensity. Additional findings: There is a 4.6 cm anterior uterine fibroid on the left. MR/MR abdomen wo/w con IMPRESSION: 1. Extremely limited examination due to lack of small bowel distention. Large amount of stool throughout the colon. 2. 4.6 cm anterior uterine fibroid on the left. Electronically signed by: Ramesh Vanegas MD 11/29/2024 12:31 PM EDT
--- OUTSIDE RECORDS SUMMARY | 2024-11-29 10:54 | XMS_ITS | Encounter Summary ---
Author Organization [facility] Address [address] [place] [address] Care Team Providers Care Bobtail Driver Name Role Phone Rich Rosa MD Primary Care Provider Encounter Details Date Type Department Care Team (Late st Contact Info) Description 11/26/2024 Scanned Document [facility] ENDO PROC [facility] [address] [place] [address] Liliya Rosales MD [address] [place], [place] [phone] Social History Tobacco Use Types Packs/Day Years [...] Description 12/01/2024 1:00 PM EDT Procedure visit [facility] [address] [place] [phone] 12/01/2024 1:40 PM EDT Office Visit [facility] [address] [place] [phone] 12/09/2024 2:00 PM EDT Evaluation [address] [place] [phone] Albert Ying MD [address] [place] [address] Husam Holman, PT 2 [facility] [address] [place] [address] 12/23/2024 9:00 AM EDT Treatment [facility] [address] [facility] [place] [address] Albert Ying MD [address] [place], [place] [phone] Husam Holman, PT 2 [facility] [address] [place] [address] documented as of this encounter Procedures Procedure Name Priority Date/Time Associated Diagnosis Comments HX GASTROENTEROLOGY COLONOSCOPY-SCAN 11/26/2024 8:45 AM EDT HX GASTROENTEROLOGY COLONOSCOPY-SCAN 11/26/2024 8:45 AM EDT HX GASTROENTEROLOGY UPPER ENDOSCOPY-SCAN 11/26/2024 8:23 AM EDT HX GASTROENTEROLOGY UPPER ENDOSCOPY-SCAN 11/26/2024 8:23 AM EDT documented in this encounter Results * HX GASTROENTEROLOGY COLONOSCOPY-SCAN (11/26/2024 8:45 AM EDT) us Liliya Rosales MD HX AMB PROCEDURES Final Result * HX GASTROENTEROLOGY COLONOSCOPY-SCAN (11/26/2024 8:45 AM EDT) us Liliya Rosales MD HX AMB PROCEDURES Final Result * HX GASTROENTEROLOGY UPPER ENDOSCOPY-SCAN (11/26/2024 8:23 AM EDT) us Liliya Rosales MD HX AMB PROCEDURES Final Result * HX GASTROENTEROLOGY UPPER ENDOSCOPY-SCAN (11/26/2024 8:23 AM EDT) Liliya Rosales MD HX AMB PROCEDURES Final Result documented in this encounter Visit Diagnoses Not on filedocumented in this encounter Care Teams Bobtail Driver Relationship Specialty Start Date End Date Rich Rosa MD [address] [place] [address] PCP - General Family Medicine 09/30/24 documented as of this encounter
--- OUTSIDE RECORDS SUMMARY | 2024-11-29 10:54 | XMS_ITS | Patient Health Record ---
Author Organization [facility] Address [address] [place] [address] Care Team Providers Care Head Bookkeeper Name Role Phone Abiel Pinedo MD Primary Care Provider Angelo Gonzales Unavailable [phone] Allergies Allergen (clinical drug ingredient) Drug/Non Drug [...] Status W/U Status Risk Notes Problem Bursitis (38005919) Bursitis (727.3) Active confirmed Problem Achilles bursitis (828685030) Achilles Tendonitis Bursitis (726.71) Active confirmed Problem Calcaneal spur (19981754) Calcaneal spur (726.73) Active confirmed Problem Type I diabetes mellitus without complication (234291006) Diabetic - IDDM (250.01) Active confirmed Problem Metatarsalgia (46182893) Metatarsalgia (726.70) Active confirmed Problem Myositis (34737323) Myositis (729.1) Active confirmed Problem Pain in limb (58554735) Pain in Limb (729.5) Active confirmed Problem Plantar fasciitis (180281815) Plantar Fasciitis (728.71) Active confirmed Problem Tailors bunion (8288282) Tailors Bunion (727.1) Active confirmed Plan Of Treatment Pending Test Test Name Order Date X ray : Foot, right 3V 07/07/2012 X ray : Foot, right 3V 12/06/2011 [id number] TENDON SHEATH/LIGAMENT 1 05/04/[id number] TENDON SHEATH/LIGAMENT 0 03/27/2012 Insurance Providers Payer Name Payer Address Payer Phone Subscriber Number Group Number Insured Name Patient Relationship to Insured Coverage Start Date Coverage End Date Blue Benefits [address] [address] [place] [address] [id number] Vanesa Urban Self - patient is the insured Medical (General) History Medical History History ICD Code diabetic chicken pox thyroid disorder Surgical History Surgery Date(Month/Year) ankle surgery tumor removal 2004 Hospitalization History Reason Date(Month/Year) Childbirth at [facility] 07/23/2011
--- OUTSIDE RECORDS SUMMARY | 2024-11-29 10:54 | XMS_ITS | Encounter Summary ---
Author Organization [facility] Address [address] [place] [address] Care Team Providers Care System Designer Name Role Phone Unknown Primary Care Provider [phone] Rich Rosa MD Primary Care Provider [phone] Encounter Details Date Type Department Care Team (Late st Contact Info) Description 08/27/2024 Telephone [facility] [address] [place] [phone] Fifi Lin MD [address] [place] [phone] Social History Tobacco Use Types Packs/Day Years [...] Description 12/01/2024 1:00 PM EDT Procedure visit [facility] [address] [place] [phone] 12/01/2024 1:40 PM EDT Office Visit [address] [phone] 12/09/2024 2:00 PM EDT Evaluation [address] [place] [phone] Albert Ying MD [address] [place] [address] Husam Holman, PT 2 [facility] [address] [place] [address] 12/23/2024 9:00 AM EDT Treatment [address] [place] [phone] Albert Ying MD [address] [place] [address] Husam Holman, PT 2 [facility] [address] [place] [address] documented as of this encounter Visit Diagnoses Not on filedocumented in this encounter Care Teams System Designer Relationship Specialty Start Date End Date Unknown Unknow Provider Address PCP - General 08/27/24 09/29/24 Rich Rosa MD [address] [place] [address] PCP - General Family Medicine 09/30/24 documented as of this encounter
--- OUTSIDE RECORDS SUMMARY | 2024-11-29 10:54 | XMS_ITS | Encounter Summary ---
Author Organization [facility] Address [address] [place] [address] Care Team Providers Care Customer Orders Clerk Name Role Phone Rich Rosa MD Primary Care Provider [phone] Encounter Details Date Type Department Care Team (Latest Contact Info) Description 11/26/2024 Travel Social History Tobacco Use Types Packs/Day Years [...] Description 12/01/2024 1:00 PM EDT Procedure visit [facility] [address] [place] [phone] 12/01/2024 1:40 PM EDT Office Visit [facility] [address] [place] [phone] 12/09/2024 2:00 PM EDT Evaluation [address] [place] [phone] Albert Ying MD [address] [place] [address] Husam Holman, PT [address] [facility] [address] 12/23/2024 9:00 AM EDT Treatment [facility] [address] [place] [phone] Albert Ying MD [address] [place] [address] Husam Holman, PT 2 [facility] [address] [place] [address] documented as of this encounter Visit Diagnoses Not on filedocumented in this encounter Care Teams Customer Orders Clerk Relationship Specialty Start Date End Date Rich Rosa MD [address] [place] [address] PCP - General Family Medicine 09/30/24 documented as of this encounter
--- OUTSIDE RECORDS SUMMARY | 2024-11-29 10:54 | XMS_ITS | Clinical Summary ---
Author Organization [facility] Address [address] [place] [address] Phone Care Team Providers Care Database Specialist Name Role Phone Unavailable Primary Care Provider [...] Vaccines (1 - 3-dose SCDM series) 12/26/2011 Influenza Vaccines (#1) 2024 02/01/2004 COVID-19 Vaccine ( season) 2024 HIB Vaccines Completed 09/11/1987 IPV Vaccines Completed [...]
--- OUTSIDE RECORDS SUMMARY | 2024-11-29 10:54 | XMS_ITS | Encounter Summary ---
Author Organization [facility] Address [address] [place] [address] Phone Care Team Providers Care Frog Shaker Name Role Phone Maria G Garcia MD Primary Care Provider Encounter Details Date Type Department Care Team (Late st Contact Info) Description 10/31/2016 Conversion Encounter [facility] [address] [place] [address] Social History Tobacco Use Types Packs/Day Years [...] on filedocumented in this encounter Care Teams Frog Shaker Relationship Specialty Start Date End Date Maria G Garcia MD [address] [place] [address] PCP - General 10/25/16 06/27/22 documented as of this encounter
--- OUTSIDE RECORDS SUMMARY | 2024-11-29 10:54 | XMS_ITS | Clinical Summary ---
Author Organization [facility] Address [address] [place] [address] Care Team Providers Care Sales Representative Education Courses Name Role Phone Rich Rosa MD Primary Care Provider [phone] Allergies Active Allergy Reactions Criticality Noted Date Comments Hydrocodone Hives Medium 09/15/2024 Latex Hives Medium 09/15/2024 Lisinopril Angioedema High 09/15/2024 Shrimp Hives Medium 09/15/2024 Medications butalbital-acetam inophen-caffeine (FioriCET, ESGIC) 50-325-40 mg tablet Take 1 tablet by mouth as needed. Active amphetamine-dextr oamphetamine (ADDERALL) 5 MG tablet TAKE ONE TABLET BY MOUTH TWICE A DAY FOR ADD. TAKE DOSES AT LEAST 4-6 HOURS APART Active Multiple Vitamin (MULTIVITAMINS PO) Multivitamins Active levothyroxine (SYNTHROID, LEVOTHROID) 75 MCG tablet Take 75 mcg by mouth. Active loratadine (CLARITIN) 10 MG tablet Take 10 mg by mouth. Active insulin lispro (HumaLOG KWIKPEN) 100 UNIT/ML prefilled pen injection inject up to 15 units daily by subcutaneous route as directed if insulin pump malfunctions Active insulin glargine (Lantus SoloStar) 100 units/mL prefilled pen injection Inject 24 units by subcutaneous route daily as directed if insulin pump malfunctions. Active ondansetron (ZOFRAN-ODT) 8 MG disintegrating tablet DISSOLVE 1 TABLET ON TONGUE ONCE A DAY NEEDED Active bisacodyl (DULCOLAX) 5 MG EC tabletIndications :Abdominal pain, unspecified abdominal location Take 4 tablets (20 mg total) by mouth once. Take all 4 tablets 1 hour prior to starting to drink prep, on day prior to colonoscopy. 4 tablet 11/18/19 25 Active sodium-potassium- magnesium sulfates (Suprep Bowel Prep Kit) 17.5-3.13-1.6 GM/177ML Solution solutionIndicatio ns:Abdominal pain, unspecified abdominal location Take two 177 mL bottles as directed 2 each 11/18/19 25 Active Dexchlorphen-PSE- Methscop (D-HIST D PO) 2 caps at bedtime 025 Discontin ued(Med List Clean-up/ Old Med - No E-Cancel/ No AVS) Vitamin D, Cholecalciferol, 25 MCG (1000 UT) Cap Take by mouth. 025 Discontin ued(Thera py completed ) buPROPion (WELLBUTRIN XL) 150 MG 24 hr tablet 10/19/19 25 025 Discontin ued(Thera py completed ) folic acid (FOLVITE) 1 MG tablet Take 1,000 mcg by mouth. 025 Discontin ued(Thera py completed ) fluconazole (diFLUcan) 150 MG tablet Take 1 tablet every week by oral route. 025 Discontin ued(Thera py completed ) fluconazole (diFLUcan) 100 MG tablet Take 100 mg by mouth. 025 Discontin ued(Med List Clean-up/ Old Med - No E-Cancel/ No AVS) Active Problems No known active problems Encounters Date Type Department Care Team Description 11/26/2024 8:28 AM EDT Anesthesia Event [facility] ENDO PROC [facility] [address] [place] [address] Jess Benson MD 11/26/2024 8:00 AM EDT - 11/26/2024 8:45 AM EDT Surgery [facility] ENDO PROC [facility] [address] [place] [address] Liliya Rosales MD COLONOSCOPY 11/26/2024 6:56 AM EDT - 11/26/2024 11:59 PM EDT Hospital Encounter [facility] ENDO PROC [facility] [address] [place] [address] Liliya Rosales MD Discharge Disposition: Home or Self Care 11/26/2024 Scanned Document [facility] END[facility] PROC [facility] [address] [place] [address] Liliya Rosales MD 11/26/2024 Travel 11/18/2024 Telephone [facility] [address] [facility] [address] [place] [phone] Liliya Rosales MD 11/17/2024 3:30 PM EDT Consult [facility] [address] [facility] [address] [place] [address] Liliya Rosales MD Abdominal pain, unspecified abdominal location (Primary Dx); Change in bowel function; Bloating; Elevated CEA; Early satiety; Anorexia; Nausea 10/15/2024 Telephone [facility] [address] [place] [address] Mallory Chavez MA 10/01/2024 Telephone [facility] [address] [place] [phone] Jessica Price, RN 09/22/2024 2:00 PM EDT Telemedicine [facility] [address] [place] [phone] Albert Ying MD Flaum, Sheila Dara, High-tone pelvic floor dysfunction in female (Primary Dx) 09/22/2024 Travel 09/15/2024 1:00 PM EDT Consult [address] [address] Yamilka Marinelli MD Contreras, Andrea K, MD Screening procedure (Primary Dx) 09/15/2024 Travel from Last 3 Months Family History Medical History Relation Name Comments Autoimmune disease Maternal Grandfather Law Cancer, other Maternal Grandmother skin Autoimmune disease Mother Namrata Cancer, other Mother Namrata Thyroid Heart attack Mother Namrata Stroke Paternal Grandmother Olesya Prostate cancer Paternal Uncle Neri Alcohol abuse Sister 1 Madina Autoimmune disease Sister 2 Laurence Laurence Diabetes Sister 2 Laurence Relation Name Status Comments Father Alive Maternal Grandfather Law Alive Maternal Grandmother Mother Namrata Alive Paternal Grandmother Olesya Alive Paternal Uncle Neri Alive Sister 1 Madina Alive Sister 2 Laurence Alive Social History Tobacco Use Types Packs/Day Years [...] EDT Inhaled Oxygen Concentration - - Weight 78.9 kg (174 lb) 11/17/2024 2:52 PM EDT Height 167.6 cm (5' 6 ) 11/17/2024 2:52 PM EDT Body Mass Index 28.08 11/17/2024 2:52 PM EDT Plan of Treatment Upcoming Encounters Date Type Department Care Team (Late st Contact Info) Description 12/01/2024 1:00 PM EDT Procedure visit [facility] [address] [place] [phone] 12/01/2024 1:40 PM EDT Office Visit [facility] [address] [place] [phone] 12/09/2024 2:00 PM EDT Evaluation [address] [place] [phone] Albert Ying MD [address] [place] [address] Husam Holman, PT 2 [facility] [address] [place] [address] 12/23/2024 9:00 AM EDT Treatment [facility] [address] [facility] [place] [phone] Albert Ying MD [address] [place] [address] Husam Holman, PT 2 [facility] [address] [place] [address] Health Maintenance Due Date Last Done Comments Hepatitis C Virus Screening 1984 HIV Screening 1997 DTaP/Tdap/Td Vaccines (1 - Tdap) 12/26/2003 Hepatitis B Vaccines (1 of 3 - 19+ 3-dose series) 12/26/2003 Pap Smear (Ages 21-65) 2005 HPV Vaccines (1 - 3-dose SCD M series) 12/26/2011 Influenza Vaccine 10/15/2024 12/04/2020, 02/12/2019, 02/01/2004 COVID-19 Vaccine (3 - 2024-2 6 season) 2024 03/20/2021, 05/04/2020 Pneumococcal Vaccine: Pediatric (0-5 Years) and At-Risk Patients (6 to 49 Years) Aged Out No longer eligible b ased on patient's age to complete this topic Procedures Procedure Name Priority Date/Time Associated Diagnosis Comments POCT GLUCOSE, FINGERSTICK (CHARGE) Routine 11/26/2024 9:23 AM EDT HX GASTROENTEROLOGY COLONOSCOPY-SCAN 11/26/2024 8:45 AM EDT HX GASTROENTEROLOGY COLONOSCOPY-SCAN 11/26/2024 8:45 AM EDT ENDOSCOPY UPPER 11/26/2024 8:28 AM EDT Abdominal pain, unspecified abdominal location Early satiety Anorexia Elevated CEA Change in bowel function Special Needs Pre & Post FS- insulin pump COLONOSCOPY 11/26/2024 8:28 AM EDT Abdominal pain, unspecified abdominal location Early satiety Anorexia Elevated CEA Change in bowel function Special Needs Pre & Post FS- insulin pump HX GASTROENTEROLOGY UPPER ENDOSCOPY-SCAN 11/26/2024 8:23 AM EDT HX GASTROENTEROLOGY UPPER ENDOSCOPY-SCAN 11/26/2024 8:23 AM EDT POCT GLUCOSE, FINGERSTICK (CHARGE) Routine 11/26/2024 7:51 AM EDT from Last 3 Months Results * POCT Glucose, Fingerstick - Post Procedure (11/26/2024 9:23 AM EDT) Only the most recent of2 resultswithin the time period is included. POC Glucose 136 MG/DL Lot Number [id number] Mdm Developer Pass Pass Blood 11/26/2024 9:23 AM EDT [facility] POINT OF CARE TEST ORDERABLES Final Result * HX GASTROENTEROLOGY COLONOSCOPY-SCAN (11/26/2024 [...] Rosales MD HX AMB PROCEDURES Final Result from Last 3 Months Insurance [facility] Care Teams Sales Representative Education Courses Relationship Specialty Start Date End Date Rich Rosa MD [address] [place] [address] PCP - General Family Medicine 09/30/24
[2024-11-29] MEDS: Sorbitol/Mannit/Xanth Imaging 500 ML LIQUID 1500 ML PO (12:14)
== END 2024-11-29 09:18 | disposition home or self-care (01) ==
LOC: HO.MRI 09:17
PROVIDERS: PCP Nurse Practitioner Family
DX: R10.9 Unspecified abdominal pain (principal); R19.8 Other specified symptoms and signs involving the digestive system and abdomen
CPT/HCPCS: 72197; 74183; A9585

== ENCOUNTER → 2024-11-29 10:26 | Outpatient (BNV) | payer OTHER, SELFPAY | PROVIDERS: PCP Nurse Practitioner Family; Visit Provider Radiology Diagnostic Radiology | DX: K63.89 Other specified diseases of intestine (principal); D25.9 Leiomyoma of uterus, unspecified | CPT/HCPCS: 72197; 74183 ==

== ENCOUNTER 2024-12-28 09:06 | Outpatient (REF) | payer OTHER, SELFPAY ==
--- NOTE | ~2024-12-28 | MR_ITS ---
EXAMINATION: MR BREAST WITHOUT AND WITH CONTRAST, BILATERAL CLINICAL INFORMATION: Left breast lump and pain. Elevated carcinoembryonic antigen. COMPARISON: Comparison is made with relevant prior imaging. TECHNIQUE: MR imaging of the breast was performed using T1, T2 and fat saturated techniques. Dynamic multiphase imaging was also performed after the administration of intravenous gadolinium contrast agent. Computer generated 3D reconstruction and enhancement kinetic analysis was ulitized by the radiologist in the interpretation of this examination. FINDINGS: Breast composition: Heterogeneous fibroglandular breast tissue Background parenchymal enhancement: Moderate Limited views of bilateral implants demonstrate no gross abnormal finding. LEFT BREAST: 5 x 3 mm oval enhancing mass upper inner breast series 1045 image 50/126. No other suspicious enhancing masses or areas of nonmass enhancement. No axillary or internal mammary adenopathy. RIGHT BREAST: No suspicious enhancing masses or areas of non mass enhancement. No axillary or internal mammary adenopathy. Limited views of the chest and abdomen are unremarkable. MR/MR breast BI wo/w con IMPRESSION: Left: 1. Patient describes lower inner left breast pain/lump when pressed on. No MRI evidence to account for the patient's pain. Patient should have a diagnostic mammogram and ultrasound for breast pain which should be ordered by the patient's providing clinician. 2. 5 mm oval enhancing mass upper inner breast this could represent a tortuous vessel versus lymph node versus other mass. Recommend ultrasound evaluation if no correlate 6 month follow-up MRI is recommended for further evaluation. Right: No MRI evidence of malignancy. ASSESSMENT: LEFT BREAST: BI-RADS 3-Probably Benign RIGHT BREAST: BI-RADS 1-Negative RECOMMENDATIONS: Recommend left breast diagnostic mammogram and ultrasound for left breast lump and pain. Recommend Second Look MRI guided left breast ultrasound at this time. If no ultrasound correlate is seen and six-month follow-up MRI is recommended for further evaluation. Patient should be having yearly screening mammography. Electronically signed by: Pearl Reyes DO 12/29/2024 12:00 PM EDT
--- OUTSIDE RECORDS SUMMARY | 2024-12-28 09:46 | XMS_ITS | Encounter Summary ---
Author Organization [facility] Address [address] [place] [address] Care Team Providers Care Room Inspector Name Role Phone Unknown Primary Care Provider [phone] Rich Rosa MD Primary Care Provider [phone] Encounter Details Date Type Department Care Team (Late st Contact Info) Description 08/27/2024 Telephone [facility] [address] [place] [phone] Fifi Lin MD [address] [place], [place] [phone] Social History Tobacco Use Types Packs/Day Years [...] Care Team (Late st Contact Info) Description 12/30/2024 4:00 PM EDT Telemedicine [facility] [address] [place] [address] Liliya Rosales MD [address] [place] [phone] 03/02/2025 10:40 AM EST Office Visit [facility] [address] [place] [phone] documented as of this encounter Visit Diagnoses Not on filedocumented in this encounter Care Teams Room Inspector Relationship Specialty Start Date End Date Unknown Unknow Provider Address PCP - General 08/27/24 09/29/24 Rich Rosa MD [address] [place] [address] PCP - General Family Medicine 09/30/24 documented as of this encounter
--- OUTSIDE RECORDS SUMMARY | 2024-12-28 09:46 | XMS_ITS | Encounter Summary ---
Author Organization [facility] Address [address] [place] [address] Care Team Providers Care Mattress Stripper Name Role Phone Rich Rosa MD Primary Care Provider Encounter Details Date Type Department Care Team (Late st Contact Info) Description 11/26/2024 Scanned Document [facility] ENDO PROC [facility] [address] [place] [address] Liliya Rosales MD [address] [place] [address] Social History Tobacco Use Types Packs/Day Years [...] Info) Description 12/30/2024 4:00 PM EDT Telemedicine [facility] [address] [place] [address] Liliya Rosales MD [address] [place] [address] 03/02/2025 10:40 AM EST Office Visit [facility] [address] [place] [phone] documented as of this encounter Procedures Procedure Name Priority Date/Time Associated Diagnosis Comments HX GASTROENTEROLOGY COLONOSCOPY-SCAN 11/26/2024 8:45 AM EDT HX GASTROENTEROLOGY COLONOSCOPY-SCAN 11/26/2024 8:45 AM EDT HX GASTROENTEROLOGY UPPER ENDOSCOPY-SCAN 11/26/2024 8:23 AM EDT HX GASTROENTEROLOGY UPPER ENDOSCOPY-SCAN 11/26/2024 8:23 AM EDT PATHOLOGY REPORT 11/26/2024 12:0 0 AM EDT documented in this encounter Results [...] MD HX AMB PROCEDURES Final Result * Pathology (11/26/2024 12:00 AM EDT) us Liliya Rosales MD PATHOLOGY/CYTOLOGY ORDERABLES Fi nal Result documented in this encounter Visit Diagnoses Not on filedocumented in this encounter Care Teams Mattress Stripper Relationship Specialty Start Date End Date Rich Rosa MD [address] [place] [address] PCP - General Family Medicine 09/30/24 documented as of this encounter
--- OUTSIDE RECORDS SUMMARY | 2024-12-28 09:47 | XMS_ITS | Clinical Summary ---
Author Organization [facility] Address [address] [facility] [address] [place] [address] Phone Care Team Providers Care Credit Risk Associate Name Role Phone Rich Rosa ACCOUNTING SYSTEMS MANAGER Primary Care Provider + Allergies Active Allergy [...] SCREENING (18-65 YEARS) 2002 PAP SMEAR 2005 INFLUENZA VACCINE (#1) 2024 , 01/10/2020, 02/12/2019, Additional history exists COVID-19 VACCINE ( season) 2024 04/19/2021, 05/04/2020, 04/06/2020 MAMMOGRAM 2024 Adult Td,Tdap Booster 07/02/2030 07/02/2020 , 11/28/2010, [...] topic Medical Devices Not on file Insurance UNITED R R [place] [id number] Care Teams Credit Risk Associate Relationship Specialty Start Date End Date Rich Rosa NP [address] [address] PCP - General Family Medicine 06/01/18 Additional Source Comments The information contained in this document represents components of the legal health record. It is not the complete legal health record.[facility]
--- OUTSIDE RECORDS SUMMARY | 2024-12-28 09:47 | XMS_ITS | Clinical Summary ---
Author Organization [facility] Address [address] [place] [address] Care Team Providers Care Supervising Fire Marshal Name Role Phone Rich Rosa MD Primary Care Provider Allergies Active Allergy Reactions Criticality Noted Date Comments Hydrocodone Hives Medium 09/15/2024 Latex Hives Medium 09/15/2024 Lisinopril Angioedema High 09/15/2024 Shrimp Hives Medium 09/15/2024 Medications butalbital-acetami nophen-caffeine (FioriCET, ESGIC) 50-325-40 mg tablet Take 1 tablet by mouth as needed. Active amphetamine-dextro amphetamine (ADDERALL) 5 MG tablet TAKE ONE TABLET [...] NEEDED Active bisacodyl (DULCOLAX) 5 MG EC tabletIndications: Abdominal pain, unspecified abdominal location Take 4 tablets (20 mg total) by mouth once. Take all 4 tablets 1 hour prior to starting to drink prep, on day prior to colonoscopy. 4 tablet 09/03/20 25 Active mvwjtb-ylaktbjxm-w agnesium sulfates (Suprep Bowel Prep Kit) 17.5-3.13-1.6 GM/177ML Solution solutionIndication s:Abdominal pain, unspecified abdominal location Take two 177 mL bottles as directed 2 each 11/18/19 25 Active Active Problems No known active problems Encounters Date Type Department Care Team Description 12/01/2024 1:00 PM EDT Office Visit [address] [phone] Orquidea Dumont MD Anaemejeh, Ngozi, MD Uterine leiomyoma, unspecified location (Primary Dx); Screening procedure 12/01/2024 Travel 11/30/[address] [phone] Paige Perez RN 11/30/[address] [phone] Liliya Rosales MD 11/26/2024 8:28 AM EDT Anesthesia Event [facility] ENDO PROC [facility] [address] [place] [phone] Jess Benson MD 11/26/2024 8:00 AM EDT - 11/26/2024 8:45 AM EDT Surgery [facility] ENDO PROC [facility] [address] [place] [phone] Liliya Rosales MD COLONOSCOPY 11/26/2024 6:56 AM EDT - 11/26/2024 11:59 PM EDT Hospital Encounter [facility] ENDO PROC [facility] [address] [place] [phone] Liliya Rosales MD Discharge Disposition: Home or Self Care 11/26/2024 Scanned Document [facility] ENDO PROC [facility] [address] [place] [phone] Liliya Rosales MD 11/26/2024 Travel 11/18/2024 Telephone [facility] [address] [place] [phone] Liliya Rosales MD 11/17/2024 3:30 PM EDT Consult [facility] [address] [facility] [address] [place] [phone] Liliya Rosales MD Abdominal pain, unspecified abdominal location (Primary Dx); Change in bowel function; Bloating; Elevated CEA; Early satiety; Anorexia; Nausea 10/15/2024 Telephone [facility] [address] [place] [address] Mallory Chavez MA 10/01/2024 Telephone [facility] [address] [place] [phone] Jessica Price RN from Last 3 Months Family History Medical [...] Sign Reading Time Taken Comments Blood Pressure 105/70 12/01/2024 12:41 PM EDT Pulse 56 12/01/2024 12:40 PM EDT Temperature 36.3 C (97.4 F) 12/01/2024 12:40 PM EDT Respiratory Rate 18 11/26/2024 9:44 AM EDT Oxygen Saturation 100% 12/01/2024 12:40 PM EDT Inhaled Oxygen Concentration - - Weight 78.6 kg (173 lb 4.8 oz) 12/01/2024 12:40 PM EDT Height 167.6 cm (5' 6 ) 12/01/2024 12:40 PM EDT Body Mass Index 27.97 12/01/2024 12:40 PM EDT Plan of Treatment Upcoming Encounters Date Type Department Care Team (Late st Contact Info) Description 12/30/2024 4:00 PM EDT Telemedicine [facility] [address] [place] [phone] Liliya Rosales MD [address] [place], [place] [phone] 03/02/2025 10:40 AM EST Office Visit [facility] [address] [place] [phone] Health Maintenance Due Date Last Done Comments Hepatitis C Virus Screening 1984 HIV Screening 1997 DTaP/Tdap/Td Vaccines (1 - Tdap) 12/26/2003 Hepatitis B Vaccines (1 of 3 - 19+ 3-dose series) 12/26/2003 Influenza Vaccine 10/15/2024 12/04/2020, 02/12/2019, 02/01/2004 COVID-19 Vaccine (3 - 2024-2 6 season) 2024 03/20/2021, 05/04/2020 Mammogram 2024 Pap Smear (Ages 21-65) 12/01/2029 , 12/01/2024 HPV Vaccines (No Doses Required) Completed Pneumococcal Vaccine: Pediatric (0-5 Years) and At-Risk Patients (6 to 49 Years) Aged Out No longer eligible b ased on patient's age to complete this topic Procedures Procedure Name Priority Date/Time Associated Diagnosis Comments CYTOLOGY REPORT Routine 12/01/2024 4:10 PM EDT Screening procedure PAP/INSPECTOR WEIGHTS AND MEASURES CYTOLOGY Routine 12/01/2024 4:10 PM EDT Screening procedure POCT URINALYSIS DIPSTICK (IN-HOUSE) (CHARGE) Routine 12/01/2024 12:44 PM EDT Screening procedure POCT GLUCOSE, FINGERSTICK (CHARGE) Routine 11/26/2024 9:23 [...] FINGERSTICK (CHARGE) Routine 11/26/2024 7:51 AM EDT PATHOLOGY REPORT 11/26/2024 12:00 AM EDT from Last 3 Months Results * Cytology Report (12/01/2024 4:10 PM EDT) Report [facility] [id number] CLIA ID [id number] [address] [place] [address] / [phone] Cytopathology Report PATIENT NAME: OSKAR RIDDLE [facility] REC #: [id number] (AGE): 1985 (Age: 38) SPEC #: [id number] DATE OBTAINED: 12/01/2024 DIAGNOSIS A. THINPREP PAP TEST WITH HPV SCREEN: SATISFACTORY FOR EVALUATION; ENDOCERVICAL/TRANSF ORMATION ZONE COMPONENT ABSENT/INSUFFICIENT . NEGATIVE FOR INTRAEPITHELIAL LESION OR MALIGNANCY. 12/07/2024 Electronically Signed Out By DOUG GUERRA (ASCP) Note: The Pap test is a screening test with an inherent false negative rate. Clinical Diagnosis and History: LMP: 11/16/2024 Source: Endocervical 1 Vial Received Clinical Tests: Lab Acc #: [id number] Test Name: HPV, TMA, High Risk(HPVPCR) Result: Negative Ref Range: NEG APTIMA HPV assay detects 14 high risk HPV types (HPV 16,18,31,33,35,39,4 5,51,52,56,58,59,66 ,68). The assay is FDA approved for testing PreservCyt Solution Liquid PAP vials. ICD Codes: Z13.9 Encounter for screening, unspecified Clinical Tests performed at [facility], [address], [facility], , [facility] [address] HOSPITAL LAB 12/01/2024 4:10 PM EDT 12/02/2024 8:53 AM EDT Comment:THINPREP PAP TEST WI TH HPV SCREEN us Shannon Castanon MD PATHOLOGY/CYTOLOGY ORDERABLES Fi nal Result HOSPITAL LAB See Below * POCT Urinalysis Dipstick (12/01/2024 12:44 PM EDT) Color, UA Yellow 12/01/2024 12:47 PM EDT Clarity, UA Clear 12/01/2024 12:47 PM EDT Spec Grav, UA 1.015 1.003 - 1.030 12/01/2024 12:47 PM EDT pH, UA 7.0 5.0 - 8.0 12/01/2024 12:47 PM EDT Leukocyte Esterase, UA Negative Negative WBC/hpf 12/01/2024 12:47 PM EDT Nitrite, UA Negative Negative mg/dL 12/01/2024 12:47 PM EDT Protein, UA Negative Negative mg/dL 12/01/2024 12:47 PM EDT Glucose, UA Negative Negative mg/dL 12/01/2024 12:47 PM EDT Ketones, UA Negative Negative mg/dL 12/01/2024 12:47 PM EDT Urobilinogen, UA 0.2 0.2 - 1.0 mg/dL 12/01/2024 12:47 PM EDT Bilirubin, UA Negative Negative mg/dL 12/01/2024 12:47 PM EDT Blood, UA Negative Negative Paul/uL 12/01/2024 12:47 PM EDT Urine specimen / Unknown 12/01/2024 12:44 PM EDT 12/01/2024 12:47 PM EDT [facility] POINT OF CARE TEST ORDERABLES F inal Result HOSPITAL LAB See Below * POCT Glucose, Fingerstick - Post Procedure (11/26/2024 9:23 AM EDT) Only the most recent of2 resultswithin the time period is included. POC Glucose 136 MG/DL Lot Number [id number] Lead Principal Technical Architect Pass Pass Blood 11/26/2024 9:23 AM EDT [facility] POINT OF CARE TEST ORDERABLES Final Result * HX GASTROENTEROLOGY COLONOSCOPY-SCAN (11/26/2024 8:45 AM EDT) Liliya Rosales MD HX AMB PROCEDURES Final Result * HX GASTROENTEROLOGY COLONOSCOPY-SCAN (11/26/2024 8:45 AM EDT) Liliya Rosales MD HX AMB PROCEDURES Final Result * HX GASTROENTEROLOGY UPPER ENDOSCOPY-SCAN (11/26/2024 8:23 AM EDT) Liliya Rosales MD HX AMB PROCEDURES Final Result * HX GASTROENTEROLOGY UPPER ENDOSCOPY-SCAN (11/26/2024 8:23 AM EDT) Liliya Rosales MD HX AMB PROCEDURES Final Result * Pathology (11/26/2024 12:00 AM EDT) Liliya Rosales MD PATHOLOGY/CYTOLOGY ORDERABLES Fi nal Result from Last [address] [place] [address] [address] [facility] Care Teams Supervising Fire Marshal Relationship Specialty Start Date End Date Rich Rosa MD [address] [place] [address] PCP - General Family Medicine 09/30/24
--- OUTSIDE RECORDS SUMMARY | 2024-12-28 09:47 | XMS_ITS | Encounter Summary ---
Author Organization [facility] Address [address] [place] [address] Phone Care Team Providers Care Car Framer Name Role Phone Rich Rosa JUNIOR ACCOUNTANT BOOKKEEPER Primary Care Provider + Encounter Details Date Type Department Care Team (Late st Contact Info) Description 08/25/2018 Procedure Pass [facility] Cardiac Podiatrist Assistant [address] [facility], [address], [address] [place] [address] Social History Tobacco Use Types [...] on filedocumented in this encounter Care Teams Car Framer Relationship Specialty Start Date End Date Rich Rosa NP [facility] [place] [address] PCP - General Family Medicine 06/01/18 documented as of this encounter Additional Source Comments The information contained in this document represents components of the legal health record. It is not the complete legal health record.[facility]
--- OUTSIDE RECORDS SUMMARY | 2024-12-28 09:47 | XMS_ITS | Patient Health Record ---
Author Organization [facility] Address [address] [place] [address] Care Team Providers Care Hvac Sheet Metal Installer Name Role Phone Abiel Pinedo MD Primary Care Provider Angelo Gonzales Unavailable [phone] Allergies Allergen (clinical drug ingredient) Drug/Non Drug [...] Status W/U Status Risk Notes Problem Bursitis (41304604) Bursitis (727.3) Active confirmed Problem Achilles bursitis (781243788) Achilles Tendonitis Bursitis (726.71) Active confirmed Problem Calcaneal spur (62828887) Calcaneal spur (726.73) Active confirmed Problem Type I diabetes mellitus without complication (647532249) Diabetic - IDDM (250.01) Active confirmed Problem Metatarsalgia (23072643) Metatarsalgia (726.70) Active confirmed Problem Myositis (66322150) Myositis (729.1) Active confirmed Problem Pain in limb (84673954) Pain in Limb (729.5) Active confirmed Problem Plantar fasciitis (334978210) Plantar Fasciitis (728.71) Active confirmed Problem Tailors bunion (8451322) Tailors Bunion (727.1) Active confirmed Plan Of Treatment Pending Test Test Name Order Date X ray : Foot, right 3V 07/07/2012 X ray : Foot, right 3V 12/06/2011 [id number] TENDON SHEATH/LIGAMENT 1 05/04/201141289,[id number] TENDON SHEATH/LIGAMENT 0 03/27/2012 Insurance Providers Payer Name Payer Address Payer Phone Subscriber Number Group Number Insured Name Patient Relationship to Insured Coverage Start Date Coverage End Date [employer] Benefits [address] [address] [place] [address] [id number] Vanesa Urban Self - patient is the insured Medical (General) History Medical History History ICD Code diabetic chicken pox thyroid disorder Surgical History Surgery Date(Month/Year) ankle surgery tumor removal 2004 Hospitalization History Reason Date(Month/Year) Childbirth at [facility] 07/23/2011
--- OUTSIDE RECORDS SUMMARY | 2024-12-28 09:47 | XMS_ITS | Encounter Summary ---
Author Organization [facility] Address [address] [address] Phone Care Team Providers Care Watershed Manager Name Role Phone Rich Rosa NP Primary Care Provider + Reason for Referral * Consultation (Within 1 month) - Closed Specialty Diagnoses / Procedures Referred By Contbisi t Referred To Contact Diagnoses Cardiac abnormality [facility] Cardiology [address] [place] [address] Phone: tel: [facility] CARD [id number] Referral ID Status Reason Start Date Expiration Date Visits Re quested Visits Authorized [id number] Closed 06/09/2018 06/10/2019 1 1 Electronically signed by [facility] Admitting, Provider at 06/09/2018 1:00 PM EDT Encounter Details Date Type Department Care Team (Latest Contact Info) Description 06/09/2018 Transcribe Orders [facility] Cardiology [address] [place] [phone] Unknown, Unknown, Cardiac abnormality (Primary Dx) Social [...] Diagnoses Orde r Schedule Ambulatory referral to [facility] Cardiology Outpatient Referral Routine Cardiac abnormality Ordered: 06/09/2018 documented as of this encounter Visit Diagnoses Diagnosis 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 It is not the complete legal health record.[facility]
== END 2024-12-28 09:07 | disposition home or self-care (01) ==
LOC: HO.MRI 09:06
PROVIDERS: PCP Nurse Practitioner Family; Visit Provider Nurse Practitioner Family
DX: R97.0 Elevated carcinoembryonic antigen [CEA] (principal)
CPT/HCPCS: 77049; A9585

== ENCOUNTER → 2024-12-28 09:15 | Outpatient (BNV) | payer OTHER, SELFPAY | PROVIDERS: PCP Nurse Practitioner Family; Visit Provider Internal Medicine | DX: N63.20 Unspecified lump in the left breast, unspecified quadrant (principal) | CPT/HCPCS: 77049 ==

== ENCOUNTER 2025-01-03 09:18 | Outpatient (REF) | payer OTHER, SELFPAY ==
--- OUTSIDE RECORDS SUMMARY | 2024-12-30 16:00 | XMS_ITS | Encounter Summary ---
Author Organization [facility] Address [address] [place] [address] Care Team Providers Care Mergers And Acquisitions Consultant Name Role Phone Rich Rosa MD Primary Care Provider Reason for Visit * Reason Comments Follow-up Constipation Encounter Details Date Type Department Care Team (Latest Contact Info) Description 12/30/2024 4:00 PM EDT Telemedicine [facility] [address] [place] [address] Liliya Rosales MD [address] [place] [address] Bloating (Primary Dx); Gastroesophageal reflux disease without esophagitis Social History Tobacco Use Types Packs/Day Years [...] Taken Comments Blood Pressure - - Pulse - - Temperature - - Respiratory Rate - - Oxygen Saturation - - Inhaled Oxygen Concentration - - Weight 78.5 kg (173 lb) 12/29/2024 4:10 PM EDT Height 167.6 cm (5' 6 ) 12/29/2024 4:10 PM EDT Body Mass Index 27.92 12/29/2024 4:10 PM EDT documented in this encounter Progress Notes * Liliya Rosales MD - 12/30/2024 4:00 PM EDT Images from the original note were not included. [address] [facility] [phone] Gastroenterology Note Assessment/Plan Vanesa Urban is a 39 y.o. female w/ h/o type 1 diabetes on insulin pump, acne, hypothyroidism,migraines, ADD here as FUV for change in bowel habits, lower abdominal pain, nausea, bloating, borderline elevated CEA 1. Bloating 2. Gastroesophageal reflux disease without esophagitis -persistent sx of abdominal discomfort, bloating- she has completed endoscopy, colonoscopy, MRE - she used miralax bid then daily without resolution of sx -recommend SIBO testing to evaluate for bacterial overgrowth -given her reported worsening reflux after endoscopy and erosions on endoscopy - recommended 8wk course of omeprazole 40mg daily -reviewed pathology from endoscopy with patient - stomach bx have indicated reactive changes w/ metaplasia (likely from prepyloric area biopsies) -- can consider repeat endoscopy w/ mapping bx after treatment with PPI x8wks -recommend daily probiotic -if sx persist, can plan UGIS with small bowel follow through since MRE was limited (she vomited contrast) -has discontinued doxycycline used for acne -f/u 8wks Orders Placed This Encounter Bacterial Overgrowth Breath Test: Lincoln Newsoms ($$$$) OMEprazole (PriLOSEC) 40 MG capsule Vanesa Urban is a 39 y.o. female w/ h/o type 1 diabetes on insulin pump, acne on doxy, hypothyroidism, migraines, ADD here as FUV for change in bowel habits, lower abdominal pain, nausea, bloating, borderline elevated CEA Pt seen 11/17/24- states that over last 1yr - she has noted Gi sx - has been avoiding certain foods due to bloating Complains of altered bowel habits - has no bm for 3days a week - other days can have 2-3bm/day - stool can be hard or diarrhea She has no blood in stool; denies FH CRC or IBD; she has no wt loss Denies heartburn, no vomiting; +nausea which is worse in AM usually after meal or in afternoon Has noted early satiety and diminished appetite Admits to use of dianeticist doxycycline for acne She has tried miralax 1x/wk along w/ colace, dulcolax Reports low FODMAP diet did not help -s/p labs 11/10/24 - wbc 8.1; hb 14.7; plts 253; cr 0.93; tbili 0.3; ast 29; alt 24; ao 73; CRP normal 0.24 nl<0.5; lipase 21; CEA 4.3 nl<3-4; TSH 2.18 normal; TTG IgA <1; hbSag neg; hbcore neg; hcv ab neg; TODAY - after last visit, pt had endoscopy and colonoscopy and MRE (poorly tolerated due to vomiting of contrast) She has continued sx of bloating, abdominal discomfort States she had reflux needing to sleep upright and had used omeprazole for 3 days after endoscopy due to GERD sx She used miralax bid for several days after MRE results but this caused uncontrollable diarrhea - she reduced to once daily then stopped few days ago - she has 3-4bm/day off miralax -s/p MRE ([facility]) - liver nl; patent portal/hepatic vein; no rae dil; no gallstones; cbd normal; pancreas normal; no ascites; limited enterography - no abnormal bowel enhancement; large stool in colon -s/p colo 11/26/24 - normal colon - bx nl; ileum nl; small polyp in TC SSA -s/p endoscopy 11/26/24 - normal except for small prelyoric erosions - path: stomach -reactive changes w/ metaplasia; duo bx neg for celiac disease Review of systems as noted below, except as stated in HPI and as stated in patient provided questionnaire Review of Systems Constitutional: Positive for decreased appetite and malaise/fatigue. HENT: Negative. Eyes: Negative. Respiratory: Negative. Cardiovascular: Positive for foot swelling. Gastrointestinal: Positive for abdominal pain, bloating, change in bowel habit, constipation, diarrhea, flatus, heartburn, nausea, early satiety and belching. Genitourinary: Positive for pelvic pain. Musculoskeletal: Positive for back pain. Skin: Negative. Breast: Negative. Neurological: Negative. Endo/Heme/Allergies: Negative. Psychiatric/Behavioral: Negative. Body mass index is 27.92 kg/m??. Vitals: 12/29/24 1610 Weight: 78.5 kg (173 lb) Height: 1.676 m (5' 6 ) Physical Exam Constitutional: Appearance: She is well-developed. HENT: Head: Normocephalic and atraumatic. Eyes: General: No scleral icterus. Conjunctiva/sclera: Conjunctivae normal. Cardiovascular: Rate and Rhythm: Normal rate. Pulmonary: Effort: Pulmonary effort is normal. Abdominal: Palpations: Abdomen is soft. Musculoskeletal: Cervical back: Neck supple. Skin: General: Skin is warm and dry. Neurological: Mental Status: She is alert. Allergies[1] Outpatient Medications Marked as Taking for the 12/30/24 encounter (Telemedicine) with Liliya Rosales MD: xsmagpflqk-vgcegiamzhhri-yxmrjuhz (FioriCET, ESGIC) 50-325-40 mg tablet, Take 1 tablet by mouth as needed., Disp: , Rfl: insulin glargine (Lantus SoloStar) 100 units/mL prefilled pen injection, Inject 24 units by subcutaneous route daily as directed if insulin pump malfunctions., Disp: , Rfl: insulin lispro (HumaLOG KWIKPEN) 100 UNIT/ML prefilled pen injection, inject up to 15 units daily by subcutaneous route as directed if insulin pump malfunctions, Disp: , Rfl: levothyroxine (SYNTHROID, LEVOTHROID) 75 MCG tablet, Take 75 mcg by mouth., Disp: , Rfl: loratadine (CLARITIN) 10 MG tablet, Take 10 mg by mouth., Disp: , Rfl: Multiple Vitamin (MULTIVITAMINS PO), Multivitamins, Disp: , Rfl: ondansetron (ZOFRAN-ODT) 8 MG disintegrating tablet, DISSOLVE 1 TABLET ON TONGUE ONCE A DAY NEEDED, Disp: , Rfl: Past Medical History: Diagnosis Date Constipation Diabetes mellitus (HCC) Disease of thyroid gland Hemorrhoid Pelvic pain PONV (postoperative nausea and vomiting) Skin cancer 2023 Swelling Past Surgical History: Procedure Laterality Date ANKLE SURGERY BREAST SURGERY 2012 COLONOSCOPY N/A 11/26/2024 Procedure: COLONOSCOPY; Surgeon: Liliya Rosales MD; Location: [facility]; Service: Gastroenterology; Laterality: N/A; ENDOSCOPY ENDOSCOPY UPPER N/A 11/26/2024 Procedure: ENDOSCOPY UPPER; Surgeon: Liliya Rosales MD; Location: [facility]; Service: Gastroenterology; Laterality: N/A; No results found for: WBC , HGB , HCT , MCV , PLT Lab Results Component Value Date GLUC 136 11/26/2024 No results found for: ALT , AST , GGT , ALKPHOS , BILITOT No results found for: CRP The potential risks related to an endoscopy or colonoscopy include but are not limited to: cardiopulmonary complications, reaction to medications, perforation, surrounding organ and splenic injury, bleeding, infection, missed lesions/diagnostic error, interval cancer, incomplete exam and . Medication called propofol will be used for sedation. Procedures or further testing as recommended during office visit should be scheduled within 4-6 weeks to prevent delays in diagnosis. Please call ouroffice if you have worsening symptoms or new associated symptoms. All available relevant data including labs, xrays, diagnositic studies, physician notes, and referral notes were reviewed as documented above. Total Time Spent on Day of Service: 30 min During this visit, the time spent included the following: Examining the patient Chart review in preparation for the visit Documenting in the patient record Reviewing Labs & Radiology Medication Reconciliation Date of Labs / Imaging / Procedures / Pathology Reviewed: as noted above Electronically signed by Liliya Rosales MD [1] Allergies Allergen Reactions Lisinopril Angioedema Hydrocodone Hives Latex Hives Shrimp Hives documented in this encounter Plan of Treatment Upcoming Encounters Date Type Department Care Team (Late st Contact Info) Description 03/02/2025 10:40 AM EST Office Visit [facility] [address] [place] [address] [phone] Scheduled Orders Name Type Priority Associated Diagnoses Orde r Schedule Bacterial Overgrowth Breath Test: Lincoln Newsoms ($$$$) GI Routine Bloating Expected: 12/30/2024, Expires: 12/30/2025 documented as of this encounter Visit Diagnoses Diagnosis Bloating- Primary Flatulence, eructation, and gas pain Gastroesophageal reflux disease without esophagitis Esophageal reflux documented in this encounter Care Teams Mergers And Acquisitions Consultant Relationship Specialty Start Date End Date Rich Rosa MD [address] [address] PCP - General Family Medicine 09/30/24 documented as of this encounter
--- NOTE | ~2025-01-03 | US_ITS ---
EXAMINATION: MM DIAGNOSTIC DIGITAL BREAST TOMOSYNTHESIS, BILATERAL Left breast palpable lump and MRI directed Second Look ultrasound. CLINICAL INFORMATION: Left breast palpable lump lower inner quadrant. Patient had breast MRI which demonstrated a upper inner left breast oval mass measuring 5 mm for which MRI directed mammogram and ultrasound recommended. COMPARISON: Mammography: Comparison is made with relevant prior exams. TECHNIQUE: Digital breast mammography with tomosynthesis is performed in both the craniocaudal and mediolateral oblique views along with computer-aided detection (CAD). FINDINGS: There are scattered areas of fibroglandular density. Bilateral retropectoral saline implants. There are no significant masses, abnormal calcifications, or other abnormalities. Targeted color Doppler ultrasound scanning in the medial left breast 12-6 o'clock upper inner quadrant lower inner quadrant demonstrates normal fibronodular breast tissue. There is no sonographic abnormal finding to account for the 5 mm oval enhancing mass on prior MRI in the upper inner quadrant or palpable lump in the lower inner quadrant. Results are provided to the patient at time of visit by the technologist. US/US Breast LT Limited Mamm Only IMPRESSION: Left: 1. No mammographic or sonographic abnormal finding or MRI finding to account for the patient's left breast lower inner quadrant palpable lump. Recommend clinical evaluation and follow-up. 2. No mammographic or sonographic abnormal finding to account for the patient's 5 mm oval enhancing mass in the left upper inner quadrant. Recommend six-month follow-up MRI to further evaluate the 5 mm oval enhancing mass in the left upper inner breast. Right: Benign. ASSESSMENT: BI-RADS Category 2: Benign NO mammographic or sonographic abnormal finding. However 6 month followup MRI is recommended to evaluate the 5 mm oval enhancing mass in the left upper inner breast on MRI. RECOMMENDATION: 6 Month F/U MRI to evaluate the 5 mm oval enhancing mass in the left upper inner breast This patient's information was entered into a reminder system with a target due date for their next mammogram. Electronically signed by: Pearl Reyes DO 01/03/2025 11:16 AM EDT
--- OUTSIDE RECORDS SUMMARY | 2025-01-03 10:27 | XMS_ITS | Clinical Summary ---
Author Organization [facility] Address [address] [facility] [address] [place] [address] Phone Care Team Providers Care Clinical Pharmacy Specialist Name Role Phone Rich Rosa PHARMACY CARE COORDINATOR Primary Care Provider + Allergies Active Allergy [...] file Insurance UNITED R R [place] [id number] Care Teams Clinical Pharmacy Specialist Relationship Specialty Start Date End Date Rich Rosa NP [address] [place] [address] PCP - General Family Medicine 06/01/18 Additional Source Comments The information contained in this document represents components of the legal health record. It is not the complete legal health record.[facility]
--- OUTSIDE RECORDS SUMMARY | 2025-01-03 10:27 | XMS_ITS | Encounter Summary ---
Author Organization [facility] Address [address] [address] Phone Care Team Providers Care Semiconductors Wafer Breaker Name Role Phone Rich Rosa NP Primary Care Provider + Reason for Referral * Consultation (Within 1 month) - Closed Specialty Diagnoses / Procedures Referred By Contbisi t Referred To Contact Diagnoses Cardiac abnormality [facility] [address] [place] [address] Phone: tel: [facility] CARD [id number] Referral ID Status Reason Start Date Expiration Date Visits Re quested Visits Authorized [id number] Closed 06/09/2018 06/10/2019 1 1 Encounter Details Date Type Department Care Team (Latest Contact Info) Description 06/09/2018 Transcribe Orders [facility] Cardiology [address] [place] [phone] Unknown, Unknown, Cardiac abnormality (Primary Dx) Social [...] Orde r Schedule Ambulatory referral to [facility] Cardiology Outpatient Referral Routine Cardiac abnormality Ordered: 06/09/2018 documented as of this encounter Visit Diagnoses Diagnosis 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 It is not the complete legal health record.[facility]
--- OUTSIDE RECORDS SUMMARY | 2025-01-03 10:27 | XMS_ITS | Encounter Summary ---
Author Organization [facility] Address [address] [place] [address] Care Team Providers Care Recreation Establishment Manager Name Role Phone Rich Rosa MD Primary Care Provider Encounter Details Date Type Department Care Team (Late st Contact Info) Description 11/26/2024 Scanned Document [facility] ENDO PROC [facility] [address] [place] [address] [phone] Liliya Rosales MD [address] [place] [phone] Social History Tobacco Use Types Packs/Day Years [...] Description 03/02/2025 10:40 AM EST Office Visit [facility] [address] [place] [address] [phone] documented as of this encounter Procedures Procedure [...] on filedocumented in this encounter Care Teams Recreation Establishment Manager Relationship Specialty Start Date End Date Rich Rosa MD [address] [place] [address] PCP - General Family Medicine 09/30/24 documented as of this encounter
--- OUTSIDE RECORDS SUMMARY | 2025-01-03 10:27 | XMS_ITS | Encounter Summary ---
Author Organization [facility] Address [address] [place] [address] Care Team Providers Care Professional Golf Tournament Player Name Role Phone Unknown Primary Care Provider [phone] Rich Rosa MD Primary Care Provider [phone] Encounter Details Date Type Department Care Team (Late st Contact Info) Description 08/27/2024 Telephone [facility] [address] [place] [address] [phone] Fifi Lin MD [address] [place] [address] [phone] Social History Tobacco Use Types Packs/Day Years [...] Description 03/02/2025 10:40 AM EST Office Visit [facility] [address] [place] [phone] documented as of this encounter Visit Diagnoses Not on filedocumented in this encounter Care Teams Professional Golf Tournament Player Relationship Specialty Start Date End Date Unknown Unknow Provider Address PCP - General 08/27/24 09/29/24 Rich Rosa MD [address] [place] [address] PCP - General Family Medicine 09/30/24 documented as of this encounter
--- OUTSIDE RECORDS SUMMARY | 2025-01-03 10:27 | XMS_ITS | Patient Health Record ---
Author Organization [facility] Address [address] [place] [address] Care Team Providers Care Finish Mill Operator Name Role Phone Abiel Pinedo MD Primary Care Provider Angelo Gonzales Unavailable [phone] Allergies Allergen (clinical drug ingredient) Drug/Non Drug [...] Status W/U Status Risk Notes Problem Bursitis (86433132) Bursitis (727.3) Active confirmed Problem Achilles bursitis (982124537) Achilles Tendonitis Bursitis (726.71) Active confirmed Problem Calcaneal spur (11154635) Calcaneal spur (726.73) Active confirmed Problem Type I diabetes mellitus without complication (375024551) Diabetic - IDDM (250.01) Active confirmed Problem Metatarsalgia (96514334) Metatarsalgia (726.70) Active confirmed Problem Myositis (77747870) Myositis (729.1) Active confirmed Problem Pain in limb (17348932) Pain in Limb (729.5) Active confirmed Problem Plantar fasciitis (860444483) Plantar Fasciitis (728.71) Active confirmed Problem Tailors bunion (6383712) Tailors Bunion (727.1) Active confirmed Plan Of Treatment Pending Test Test Name Order Date X ray : Foot, right 3V 12/06/2011 X ray : Foot, right 3V 07/07/2012 [id number] TENDON SHEATH/LIGAMENT 1 05/04/201128111,[id number] TENDON SHEATH/LIGAMENT 0 03/27/2012 Insurance Providers Payer Name Payer Address Payer Phone Subscriber Number Group Number Insured Name Patient Relationship to Insured Coverage Start Date Coverage End Date Blue Benefits [address] [address] [place] [address] [id number] Vanesa Urban Self - patient is the insured Medical (General) History Medical History History ICD Code diabetic chicken pox thyroid disorder Surgical History Surgery Date(Month/Year) ankle surgery tumor removal 2004 Hospitalization History Reason Date(Month/Year) Childbirth at [facility] 07/23/2011
--- OUTSIDE RECORDS SUMMARY | 2025-01-03 10:28 | XMS_ITS | Clinical Summary ---
Author Organization [facility] Address [address] [place] [address] Phone Care Team Providers Care Wage And Hour Investigator Name Role Phone Unavailable Primary Care Provider [...] Vaccines (#1) 2024 02/01/2004 COVID-19 Vaccine ( - 2024- season) 2024 HIB Vaccines Completed 09/11/1987 IPV [...]
--- OUTSIDE RECORDS SUMMARY | 2025-01-03 10:28 | XMS_ITS | Encounter Summary ---
Author Organization [facility] Address [address] [place] [address] Care Team Providers Care Joint Supervisor Name Role Phone Rich Rosa MD Primary Care Provider [phone] Encounter Details Date Type Department Care Team (Late st Contact Info) Description 12/31/2024 Orders Only [facility] [address] [phone] Ciara Britton [address] [place] [address] [place] [address] Bloating Social History Tobacco Use Types Packs/Day Years [...] Description 03/02/2025 10:40 AM EST Office Visit [facility] [address] [place] [phone] documented as of this encounter Visit Diagnoses Diagnosis Bloating Flatulence, eructation, and gas pain documented in this encounter Care Teams Joint Supervisor Relationship Specialty Start Date End Date Rich Rosa MD [address] [facility] [place] [address] PCP - General Family Medicine 09/30/24 documented as of this encounter
--- OUTSIDE RECORDS SUMMARY | 2025-01-03 10:28 | XMS_ITS | Encounter Summary ---
Author Organization [facility] Address [address] [place] [address] Phone Care Team Providers Care Legal Billing Coordinator Name Role Phone Rich Rosa COAL GRADER Primary Care Provider + Encounter Details Date Type Department Care Team (Late st Contact Info) Description 08/25/2018 Procedure Pass [facility] Cardiac [place]ress [place] [address] [facility], [address] [place] [address] Social History Tobacco Use Types [...] on filedocumented in this encounter Care Teams Legal Billing Coordinator Relationship Specialty Start Date End Date Rich Rosa NP [facility] [place] [address] PCP - General Family Medicine 06/01/18 documented as of this encounter Additional Source Comments The information contained in this document represents components of the legal health record. It is not the complete legal health record.[facility]
--- OUTSIDE RECORDS SUMMARY | 2025-01-03 10:28 | XMS_ITS | Clinical Summary ---
Author Organization [facility] Address [address] [place] [address] Care Team Providers Care Hand Drawer In Name Role Phone Rich Rosa MD Primary Care Provider Allergies Active Allergy Reactions Criticality Noted Date Comments Hydrocodone Hives Medium 09/15/2024 Latex Hives Medium 09/15/2024 Lisinopril Angioedema High 09/15/2024 Shrimp Hives Medium 09/15/2024 Medications butalbital-acetam inophen-caffeine (FioriCET, ESGIC) 50-325-40 mg tablet Take 1 tablet by mouth as needed. Active Multiple Vitamin (MULTIVITAMINS PO) Multivitamins Active [...] ON TONGUE ONCE A DAY NEEDED Active OMEprazole (PriLOSEC) 40 MG capsuleIndication s:Gastroesophagea l reflux disease without esophagitis Take 1 capsule (40 mg total) by mouth every morning before breakfast. Take atleast 1/2 hour before meal. 30 capsule 3 12/31/19 25 Active amphetamine-dextr oamphetamine (ADDERALL) 5 MG tablet TAKE ONE TABLET BY MOUTH TWICE A DAY FOR ADD. TAKE DOSES AT LEAST 4-6 HOURS APART Discontin ued(Thera py completed ) bisacodyl (DULCOLAX) 5 MG EC tabletIndications :Abdominal pain, unspecified abdominal location Take 4 tablets (20 mg total) by mouth once. Take all 4 tablets 1 hour prior to starting to drink prep, on day prior to colonoscopy. 4 tablet 11/18/19 Discontin ued(Thera py completed ) sodium-potassium- magnesium sulfates (Suprep Bowel Prep Kit) 17.5-3.13-1.6 GM/177ML Solution solutionIndicatio ns:Abdominal pain, unspecified abdominal location Take two 177 mL bottles as directed 2 each 11/18/19 Discontin ued(Thera py completed ) Active Problems No known active problems Encounters Date Type Department Care Team Description 12/31/2024 Orders Only [address] [phone] Ciara Britton Bloating 12/30/2024 4:00 PM EDT Telemedicine [address] [address] Liliya Rosales MD Bloating (Primary Dx); Gastroesophageal reflux disease without esophagitis 12/01/2024 1:00 PM EDT Office Visit [facility] [address] [place] [phone] Orquidea Dumont MD Anaemejeh, Ngozi, MD Uterine leiomyoma, unspecified location (Primary Dx); Screening procedure 12/01/2024 Travel 11/30/2024 Telephone [facility] [address] [place] [phone] Paige Perez RN 11/30/[address] [address] Liliya Rosales MD 11/26/2024 8:28 AM EDT Anesthesia Event [facility] ENDO PROC [facility] [address] [place] [address] Jess Benson MD 11/26/2024 8:00 AM EDT - 11/26/2024 8:45 AM EDT Surgery [facility] ENDO PROC [facility] [address] [place] [address] Liliya Rosales MD COLONOSCOPY 11/26/2024 6:56 AM EDT - 11/26/2024 11:59 PM EDT Hospital Encounter [facility] END[facility] PROC [facility] [address] [place] [address] Liliya Rosales MD Discharge Disposition: Home or Self Care 11/26/2024 Scanned Document [facility] ENDO PROC [facility] [address] [place] [address] Liliya Rosales MD 11/26/2024 Travel 11/18/2024 Telephone [facility] [address] [facility] [address] [place] [phone] Liliya Rosales MD 11/17/2024 3:30 PM EDT Consult [facility] [address] [facility] [address] [place] [address] Liliya Rosales MD Abdominal pain, unspecified abdominal location (Primary Dx); Change in bowel function; Bloating; Elevated CEA; Early satiety; Anorexia; Nausea 10/15/2024 Telephone [facility], [address] [place] [address] Mallory Chavez MA from Last 3 Months Family History Medical [...] EDT Inhaled Oxygen Concentration - - Weight 78.5 kg (173 lb) 12/29/2024 4:10 PM EDT Height 167.6 cm (5' 6 ) 12/29/2024 4:10 PM EDT Body Mass Index 27.92 12/29/2024 4:10 PM EDT Plan of Treatment Upcoming Encounters Date Type Department Care Team (Late st Contact Info) Description 03/02/2025 10:40 AM EST Office Visit [facility] [address] [place] [phone] Health Maintenance Due Date Last Done Comments Hepatitis C Virus Screening 1985 HIV Screening 1997 DTaP/Tdap/Td Vaccines (1 - Tdap) 12/26/2003 Hepatitis B Vaccines (1 of 3 - 19+ 3-dose series) 12/26/2003 Influenza Vaccine 10/15/2024 12/04/2020, 02/12/2019, 02/01/2004 COVID-19 Vaccine ( - 2024-2 6 season) 2024 03/20/2021, 05/04/2020 [...] Routine 12/01/2024 4:10 PM EDT Screening procedure PAP/NEEDLE MAKER CYTOLOGY Routine 12/01/2024 4:10 PM EDT Screening [...] Cytology Report (12/01/2024 4:10 PM EDT) Report [facility] [id number] CLIA ID [id number] [address] [place] [address] / [phone] Cytopathology Report PATIENT NAME: OSKAR RIDDLE REC #: [id number] (AGE): 1985 (Age: 38) SPEC #: [id number] DATE OBTAINED: 12/01/2024 DIAGNOSIS A. THINPREP PAP TEST WITH HPV SCREEN: SATISFACTORY FOR EVALUATION; ENDOCERVICAL/TRANSF ORMATION ZONE COMPONENT ABSENT/INSUFFICIENT . NEGATIVE FOR INTRAEPITHELIAL LESION OR MALIGNANCY. /12/07/2024 Electronically Signed Out By DOUG GUERRA (ASCP) Note: The Pap test is a screening test with an inherent false negative rate. Clinical Diagnosis and History: LMP: 11/16/2024 Source: Endocervical 1 Vial Received Clinical Tests: Lab Acc #: [id number] Test Name: HPV, TMA, High Risk(HPVPCR) Result: Negative Ref Range: NEG APTIMA HPV assay detects 14 high risk HPV types (HPV 16,18,31,33,35,39,4 5,51,52,56,58,59,66 ,68). The assay is FDA approved for testing PreservCyt Solution Liquid PAP vials. ICD Codes: Z13.9 Encounter for screening, unspecified Clinical Tests performed at [facility], [address], [facility], , [facility] [address] [facility] 12/01/2024 4:10 PM EDT 12/02/2024 8:53 [...] POC Glucose 136 MG/DL Lot Number [id number] Surgical Territory Manager Pass Pass Blood 11/26/2024 9:23 AM EDT [facility] POINT OF CARE TEST ORDERABLES Final [...] nal Result from Last 3 Months [facility] Care Teams Hand Drawer In Relationship Specialty Start Date End Date Rich Rosa MD [address] [place] [address] PCP - General Family Medicine 09/30/24
--- OUTSIDE RECORDS SUMMARY | 2025-01-03 10:28 | XMS_ITS | Encounter Summary ---
Author Organization [facility] Address [address] [place] [address] Phone Care Team Providers Care Web Coordinator Name Role Phone Maria G Garcia MD Primary Care Provider Encounter Details Date Type Department Care Team (Late st Contact Info) Description 10/31/2016 Conversion Encounter [facility] [address] [place] [address] Social History Tobacco Use Types Packs/Day Years [...] on filedocumented in this encounter Care Teams Web Coordinator Relationship Specialty Start Date End Date Maria G Garcia MD [address] [place] [address] PCP - General 10/25/16 06/27/22 documented as of this encounter
== END 2025-01-03 09:19 | disposition home or self-care (01) ==
LOC: HO.MAMMO 09:18
PROVIDERS: PCP Nurse Practitioner Family; Visit Provider Nurse Practitioner Family
DX: N64.4 Mastodynia (principal)
CPT/HCPCS: 76642; 77062; 77066

== ENCOUNTER → 2025-01-03 10:00 | Outpatient (BNV) | payer OTHER, SELFPAY | PROVIDERS: PCP Nurse Practitioner Family; Visit Provider Internal Medicine | DX: R92.8 Other abnormal and inconclusive findings on diagnostic imaging of breast (principal) | CPT/HCPCS: 76642; 77062; 77066 ==

== ENCOUNTER 2025-02-25 15:24 | Outpatient (REF) | payer OTHER, SELFPAY ==
[2025-02-25 17:53] LABS: Alanine Aminotransferase 19 U/L (0-31); Albumin Level 4.7 g/dL (3.5-5.0); Alkaline Phosphatase 65 U/L (39-117); Anion Gap 9 (12-20); Aspartate Amino Transferase 32 U/L (5-31); Blood Urea Nitrogen 22 mg/dL (9-16); Calcium 9.5 mg/dL (8.4-10.2); Carbon Dioxide 28 mmol/L (22-29); Chloride 104 mmol/L (96-108); Estimated Glomerular Filt Rate > 60; Potassium 4.2 mmol/L (3.3-5.1); Sodium 137 mmol/L (135-145); Total Protein 7.3 g/dL (6.5-8.0)
[2025-02-25 18:12] LABS: Carcinoembryonic Antigen 3.80 ng/mL
--- OUTSIDE RECORDS SUMMARY | 2025-02-25 20:15 | XMS_ITS | Patient Health Record ---
Author Organization [facility] Address [address] [place] [address] Care Team Providers Care Professor Of Literacy Name Role Phone Abiel Pinedo MD Primary Care Provider Angelo Gonzales Unavailable [phone] Allergies Allergen (clinical drug ingredient) Drug/Non Drug [...] Status W/U Status Risk Notes Problem Bursitis (73864402) Bursitis (727.3) Active confirmed Problem Achilles bursitis (670566914) Achilles Tendonitis Bursitis (726.71) Active confirmed Problem Calcaneal spur (15465592) Calcaneal spur (726.73) Active confirmed Problem Type I diabetes mellitus without complication (234169530) Diabetic - IDDM (250.01) Active confirmed Problem Metatarsalgia (91152793) Metatarsalgia (726.70) Active confirmed Problem Myositis (62170008) Myositis (729.1) Active confirmed Problem Pain in limb (14124139) Pain in Limb (729.5) Active confirmed Problem Plantar fasciitis (617899038) Plantar Fasciitis (728.71) Active confirmed Problem Tailors bunion (2748497) Tailors Bunion (727.1) Active confirmed Plan Of Treatment Pending Test Test Name Order Date X ray : Foot, right 3V 12/06/2011 X ray : Foot, right 3V 07/07/2012 [id number] TENDON SHEATH/LIGAMENT 1 05/04/201159022,[id number] TENDON SHEATH/LIGAMENT 0 03/27/2012 Insurance Providers Payer Name Payer Address Payer Phone Subscriber Number Group Number Insured Name Patient Relationship to Insured Coverage Start Date Coverage End Date Blue Benefits [address] [address] [place] [address] [id number] Vanesa Urban Self - patient is the insured Medical (General) History Medical History History ICD Code diabetic chicken pox thyroid disorder Surgical History Surgery Date(Month/Year) ankle surgery tumor removal 2004 Hospitalization History Reason Date(Month/Year) Childbirth at [facility] 07/23/2011
--- OUTSIDE RECORDS SUMMARY | 2025-02-25 20:15 | XMS_ITS | Encounter Summary ---
Author Organization [facility] Address [address] [place] [address] Care Team Providers Care Technology Sales Consultant Name Role Phone RobertRich curran Rosemarie SHIPLEY Primary Care Provider Encounter Details Date Type Department Care Team (Late st Contact Info) Description 11/26/2024 Scanned Document [facility] ENDO PROC [facility] [address] [place] [phone] Liliya Rosales MD [address] [place] [address] Social History Tobacco Use Types Packs/Day Years [...] on file documented as of this encounter Procedures Procedure [...] Result * Pathology (11/26/2024 12:00 AM EDT) Result Cindy Rosales MD PATHOLOGY/CYTOLOGY ORDERABLES Fi nal Result documented in this encounter Visit Diagnoses Not on filedocumented in this encounter Care Teams Technology Sales Consultant Relationship Specialty Start Date End Date Rich Rosa NP [address] [place] [address] PCP - General Family Medicine 09/30/24 documented as of this encounter
--- OUTSIDE RECORDS SUMMARY | 2025-02-25 20:15 | XMS_ITS | Clinical Summary ---
Author Organization [facility] Address [address] [facility] [address] [place] [address] Phone Care Team Providers Care Drop Wire Hanger Name Role Phone Rich Rosa HOUSEKEEPING AIDE Primary Care Provider + Allergies Active Allergy [...] cm (5' 5.5 ) 08/25/2018 1:58 PM ED T Body Mass Index 27.53 08/25/2018 1:58 PM [...] file Insurance [place] [id number] Care Teams Drop Wire Hanger Relationship Specialty Start Date End Date Rich Rosa NP [address] [facility] [place] [address] PCP - General Family Medicine 06/01/18 Additional Source Comments The information contained in this document represents components of the legal health record. It is not the complete legal health record.[facility]
--- OUTSIDE RECORDS SUMMARY | 2025-02-25 20:15 | XMS_ITS | Encounter Summary ---
Author Organization [facility] Address [address] [address] Phone Care Team Providers Care Meat Processor Name Role Phone Rich Rosa NP Primary Care Provider + Reason for Referral * Consultation (Within 1 month) - Closed Specialty Diagnoses / Procedures Referred By Judy t Referred To Contact Diagnoses Cardiac abnormality [facility] [address] [place] [address] Phone: tel: [facility] CARD [id number] Referral ID Status Reason Start Date Expiration Date Visits Re quested Visits Authorized [id number] Closed 06/09/2018 06/10/2019 1 1 Electronically signed by [facility] Admitting, Provider at 06/09/2018 1:00 PM EDT Encounter Details Date Type Department Care Team (Latest Contact Info) Description 06/09/2018 Transcribe Orders [facility] [address] [place] [address] Unknown, Unknown, Cardiac abnormality (Primary Dx) Social [...] Diagnoses Orde r Schedule Ambulatory referral to [facility] Outpatient Referral Routine Cardiac abnormality Ordered: 06/09/2018 documented as of this encounter Visit Diagnoses Diagnosis 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 It is not the complete legal health record.[facility]
--- OUTSIDE RECORDS SUMMARY | 2025-02-25 20:16 | XMS_ITS | Clinical Summary ---
Author Organization [facility] Address [address] [place] [address] Care Team Providers Care Credit Report Checker Name Role Phone Rich Rosa NP Primary Care Provider Allergies Active Allergy Reactions [...] DAY NEEDED Active OMEprazole (PriLOSEC) 40 MG capsuleIndications :Gastroesophageal reflux disease without esophagitis Take 1 capsule (40 mg total) by mouth every morning before breakfast. Take atleast 1/2 hour before meal. 30 capsule 3 12/31/19 25 Active rifAXIMin (XIFAXAN) 550 MG tabletIndications: Small intestinal bacterial overgrowth (SIBO) Take 1 tablet (550 mg total) by mouth 3 (three) times a day. 42 tablet 3 02/02/20 25 Active neomycin (MYCIFRADIN) 500 MG tabletIndications: Small intestinal bacterial overgrowth (SIBO) Take 1 tablet (500 mg total) by mouth 2 times a day. 28 tablet 02/02/20 25 025 Active Problems No known active problems Encounters Date Type Department Care Team Description 12/30/2024 4:00 PM EDT Telemedicine [address] [place] [phone] Liliya Rosales MD Bloating (Primary Dx); Gastroesophageal reflux disease without esophagitis 12/01/2024 1:00 PM EDT Office Visit [facility] [address] [place] [phone] Orquidea Dumont MD Anaemejeh, Ngozi, MD Uterine leiomyoma, unspecified location (Primary Dx); Screening procedure 11/26/2024 8:28 AM EDT Anesthesia Event [facility] END[facility] PROC [facility] [address] [place] [address] Jess Benson MD 11/26/2024 8:00 AM EDT - 11/26/2024 8:45 AM EDT Surgery [facility] ENDO PROC [facility] [address] [place], [place] [phone] Liliya Rosales MD COLONOSCOPY 11/26/2024 6:56 AM EDT - 11/26/2024 11:59 PM EDT Hospital Encounter [facility] ENDO PROC [facility] [address] [place], [place] [phone] Liliya Rosales MD Discharge Disposition: Home or Self Care 11/26/2024 Scanned Document [facility] ENDO PROC [facility] [address] [place], [place] [phone] Liliya Rosales MD from Last 3 Months Family History Medical [...] 12/29/2024 4:10 PM EDT Plan of Treatment Health Maintenance [...] Procedure Name Priority Date/Time Associated Diagnosis Comments [facility]ERIAL OVERGROWTH - [facility] Routine 01/19/2025 4:45 PM EST Bloating CYTOLOGY REPORT Routine 12/01/2024 4:10 PM EDT Screening procedure PAP/LEASING MACHINE TENDER CYTOLOGY Routine 12/01/2024 4:10 PM EDT Screening [...] EDT from Last 3 Months Results * Bacterial Overgrowth Breath Test: [facility] ($$$$) (01/19/2025 4:45 PM EST) Liliya Rosales MD GI PROCEDURE ORDERABLES Edited R esult - Final * Cytology Report (12/01/2024 4:10 PM EDT) Report [facility] [id number] CLIA ID [id number] [address] [place] [address] / [phone] Cytopathology Report PATIENT NAME: OSKAR RIDDLE [facility] REC #: [id number] (AGE): 1985 (Age: 38) SPEC #: [id number] DATE OBTAINED: 12/01/2024 DIAGNOSIS A. THINPREP PAP [...] Vial Received Clinical Tests: Lab Acc #: [id number] Test Name: HPV, TMA, High Risk(HPVPCR) Result: Negative Ref Range: NEG APTIMA HPV assay detects 14 high risk HPV types (HPV 16,18,31,33,35,39,4 5,51,52,56,58,59,66 ,68). The assay is FDA approved for testing PreservCyt Solution Liquid PAP vials. ICD Codes: Z13.9 Encounter for screening, unspecified Clinical Tests performed at [facility], [address], [facility], , [facility] HOSPITAL LAB 12/01/2024 4:10 PM EDT 12/02/2024 8:53 AM EDT Comment:THINPREP PAP TEST WI TH HPV SCREEN Shannon Castanon MD PATHOLOGY/CYTOLOGY ORDERABLES Fi nal [...] 12:44 PM EDT 12/01/2024 12:47 PM EDT Generic Provider POINT OF CARE TEST ORDERABLES F inal Result HOSPITAL LAB See Below * POCT Glucose, Fingerstick - Post Procedure (11/26/2024 9:23 AM EDT) Only the most recent of2 resultswithin the time period is included. POC Glucose 136 MG/DL Lot Number [id number] Plate Former Pass Pass Blood 11/26/2024 9:23 AM EDT [facility] POINT OF CARE [...] nal Result from Last 3 Months Insurance [facility] Jorge L [facility] [place] [id number] [employer] Care Teams Credit Report Checker Relationship Specialty Start Date End Date Rich Rosa NP [address] [place] [address] PCP - General Family Medicine 09/30/24
--- OUTSIDE RECORDS SUMMARY | 2025-02-25 20:16 | XMS_ITS | Encounter Summary ---
Author Organization [facility] Address [address] [place] [address] Phone Care Team Providers Care Human Resources Manager Name Role Phone Rich Rosa REPORT CHECKER Primary Care Provider + Encounter Details Date Type Department Care Team (Late st Contact Info) Description 08/25/2018 Procedure Pass [facility] Cardiac Laboratory Monitor [address] [facility], [address] [place] [address] Social History Tobacco Use Types [...] on filedocumented in this encounter Care Teams Human Resources Manager Relationship Specialty Start Date End Date Rich Rosa NP [facility] [place] [address] PCP - General Family Medicine 06/01/18 documented as of this encounter Additional Source Comments The information contained in this document represents components of the legal health record. It is not the complete legal health record.[facility]
--- OUTSIDE RECORDS SUMMARY | 2025-02-25 20:16 | XMS_ITS | Clinical Summary ---
Author Organization [facility] Address [address] [place] [address] Phone Care Team Providers Care Cooking Show Host Name Role Phone Unavailable Primary Care Provider [...]
--- OUTSIDE RECORDS SUMMARY | 2025-02-25 20:16 | XMS_ITS | Encounter Summary ---
Author Organization [facility] Address [address] [place] [address] Phone Care Team Providers Care Board Mixer Tender Name Role Phone Maria G Garcia MD Primary Care Provider [phone] Encounter Details Date Type Department Care Team (Late st Contact Info) Description 10/31/2016 Conversion Encounter [facility] [address] [place] [address] Social History Tobacco Use Types Packs/Day Years [...] on filedocumented in this encounter Care Teams Board Mixer Tender Relationship Specialty Start Date End Date Maria G Garcia MD [address] [place] [address] PCP - General 10/25/16 06/27/22 documented as of this encounter
== END 2025-02-25 15:25 | disposition home or self-care (01) ==
LOC: HO.WFDLDS 15:24
PROVIDERS: Nurse Practitioner Family; Visit Provider Nurse Practitioner Family
DX: R97.0 Elevated carcinoembryonic antigen [CEA] (principal); R19.7 Diarrhea, unspecified
CPT/HCPCS: 36415; 80053; 82378